=== PATIENT | female | born 1955 | race Caucasian/White ===

== ENCOUNTER 2016-09-13 01:58 | Emergency (ER) | payer BC ==
[2016-09-13 02:04] VITALS: TEMP 97.7
[2016-09-13] MEDS ORDERED: ASPIRIN 81 MG CHEW PO STA (02:19)
[2016-09-13 02:55] LABS: Basophils # (A) 0.1 k/uL (0-0.2); Basophils % (A) 1 %; CH 33.5; CHCM 36.4; Eosinophils # (A) 0.1 k/uL (0-0.7); Eosinophils % (A) 1 %; HCT 36.9 % (34.0-46.0); HDW 2.88; HGB 13.1 gm/dL (11.4-16.0); Luc # (Auto) 0.26; Luc % (Auto) 3; Lymphocytes # (A) 1.9 k/uL (1.0-4.8); Lymphocytes % (A) 18 %; MCH 32.9 pg (25.0-35.0); MCHC 35.5 g/dL (31.0-37.0); MCV 92.5 fL (80.0-100.0); Mean Platelet Volume 7.7; Monocytes # (A) 0.7 k/uL (0-1.0); Monocytes % (A) 6 %; Neutrophils # (A) 7.4 k/uL (1.3-7.7); Neutrophils % (A) 71 %; RBC 3.98 m/uL (3.80-5.40); RDW 12.5 % (11.5-15.5); WBC 10.4 k/uL (3.8-10.6); WBC (Perox) 10.75
[2016-09-13 03:02] LABS: ALT 23 U/L (9-52); AST 19 U/L (14-36); Alkaline Phosphatase 130 U/L (38-126); Amylase 57 U/L (30-110); Anion Gap 11 mmol/L; Blood Urea Nitrogen 21 mg/dL (7-17); Calcium 8.9 mg/dL (8.4-10.2); Carbon Dioxide 24 mmol/L (22-30); Chloride 102 mmol/L (98-107); Glucose 343 mg/dL (74-99); Magnesium 1.5 mg/dL (1.6-2.3); Non-African American GFR(MDRD) >60 (>60 ml/min/1.73 sqM); Sodium 137 mmol/L (137-145); Total Bilirubin 0.6 mg/dL (0.2-1.3); Total Protein 6.7 g/dL (6.3-8.2)
[2016-09-13 03:04] LABS: Creatine Kinase 37 U/L (30-135)
--- NOTE | 2016-09-13 03:15 | XR ---
EXAM: XR Chest, 2 Views. CLINICAL HISTORY: Reason: Chest Pain TECHNIQUE: Frontal and lateral views of the chest. COMPARISON: No relevant prior studies available. FINDINGS: Lungs: Unremarkable. No consolidation. Pleural space: Unremarkable. No pneumothorax. Heart: Mild enlargement of the heart. Mediastinum: Unremarkable. Bones/joints: Unremarkable. IMPRESSION: No acute findings.
[2016-09-13 03:18] LABS: Creatine Kinase MB 0.5 ng/mL (0.0-2.4); Troponin I <0.012 ng/mL (0.000-0.034)
[2016-09-13 03:26] LABS: Partial Thromboplastin Time 23.6 sec (22.0-30.0); Prothrombin Time 10.2 sec (9.0-12.0)
[2016-09-13] MEDS ORDERED: INSULIN REGULAR 100 UNIT/ML VIAL SQ STA (04:24)
[2016-09-13] MEDS ORDERED: MAGNESIUM SULFATE-D5W PMX 1 GM in DEXTROSE/WATER 1 100ML.BAG IVPB ONE (04:24)
--- NOTE | 2016-09-13 04:50 | ED ---
Chest Pain HPI - General Chief Complaint: Chest Pain Stated Complaint: Chest Pain Time Seen by Provider: 09/13/16 02:17 Source: patient, family Mode of arrival: ambulatory Limitations: no limitations - Related Data Home Medications Medication Instructions Recorded Confirmed Atorvastatin [Lipitor] 10 mg PO DAILY 09/13/16 09/13/16 Dulaglutide [Trulicity] 0.75 mg SQ WEEKLY 09/13/16 09/13/16 Ergocalciferol (Vitamin D2) 50,000 unit PO WEEKLY 09/13/16 09/13/16 [Vitamin D2] Insulin Glargine,Hum.rec.anlog 20 unit SQ HS 09/13/16 09/13/16 [Lantus Solostar] Levothyroxine Sodium [Synthroid] 50 mcg PO DAILY 09/13/16 09/13/16 Olmesartan/Hydrochlorothiazide 1 tab PO DAILY 09/13/16 09/13/16 [Benicar Hct 40-25 mg Tablet] Allergies Allergy/AdvReac Type Severity Reaction Status Date / Time No Known Allergies Allergy Verified 09/13/16 02:04 Review of Systems ROS Statement: Those systems with pertinent positive or pertinent negative responses have been documented in the HPI. ROS Other: All systems not noted in ROS Statement are negative. Past Medical History Past Medical History: Diabetes Mellitus, Hypertension, Thyroid Disorder History of Any Multi-Drug Resistant Organisms: None Reported Past Surgical History: Appendectomy, Bariatric Surgery Past Psychological History: No Psychological Hx Reported Smoking Status: Former smoker Past Alcohol Use History: None Reported Past Drug Use History: None Reported General Exam Limitations: no limitations Course Vital Signs 09/13/16 02:00 Temperature 97.7 F Pulse Rate 99 Respiratory 20 Rate Blood Pressure 192/88 O2 Sat by Pulse 98 Oximetry Disposition Clinical Impression: Chest pain, Hypomagnesemia, Hyperglycemia Disposition: HOME SELF-CARE Condition: Fair Instructions: Chest Pain (ED) Referrals: Genaro Montalvo MD [Primary Care Provider] - 1-2 days
[2016-09-13 05:09] VITALS: RESP 16
[2016-09-13 06:16] VITALS: BP 156/70; PULSE 81
== END 2016-09-13 06:15 | disposition home or self-care (01) ==
LOC: EC 01:58
DX: E83.42 Hypomagnesemia (principal); E11.65 Type 2 diabetes mellitus with hyperglycemia; R07.9 Chest pain, unspecified; E07.9 Disorder of thyroid, unspecified; I10 Essential (primary) hypertension; Z87.891 Personal history of nicotine dependence; Z79.4 Long term (current) use of insulin; Z79.899 Other long term (current) drug therapy
CPT/HCPCS: 99285; 96365; 36415; 93005; 85379; 80053; 82150; 82550; 82553; 83690; 83735; 84484; 85025; 85610; 85730; 71020; J3475

== ENCOUNTER → 2016-11-12 | Outpatient (CLI) | payer BC ==
--- NOTE | 2016-11-12 11:41 | ECHOS ---
DATE OF SERVICE: 11/12/2016 AGE: 61Y SEX: F HT: 5'2" WT: 210 lbs. Protocol Lewis: X Others: Stress Echo Stage: 2 Dur. of Exercise: 3:30 *Heart Rate Blood Pressure *Rest: 85 Rest: 155/62 * *Max. Achieved: 151 Maximum BP: 185/83 85% PMHR: 136 100% PMHR: 160 *METS: 4.6 INDICATIONS: Chest pain. MEDICATIONS: Vitamin D, levothyroxine, atorvastatin, Lantus, Trulicity. Exercised for a total period of 3 minutes. A peak heart rate of 151 was achieved. Peak blood pressure over 185/83 mmHg was noted. Patient did not complain of any chest pain during the test but she did complain of shortness of breath. Resting EKG shows normal sinus rhythm with normal CO interval and QRS duration and normal ST-T waves. At the peak exercise about 1.[address] segment depression was noted. The ST segment depression persisted for about 6 minutes in the postexercise period. The resting echocardiographic images reveals a normal left ventricular chamber size with normal left ventricular systolic function. In the immediate postexercise period, there is evidence of hypokinesia involving the distal anterior septum as well as apical septum and anteroapical segment. IMPRESSION: 1. This stress echocardiographic study shows evidence of distal anteroseptal and apical hypokinesia at the peak exercise, suggestive of stress-induced ischemia. 2. EKG portion of the stress test shows a ST-segment depression which persisted for about 6 minutes in the postexercise period. Underlying significant coronary artery disease needs to be ruled out. Exercise tolerance is below average and was limited because symptoms of shortness of breath.
== END | disposition home or self-care (01) ==
LOC: RADNMMAIN 09:59
PROVIDERS: ATTEND Internal Medicine Geriatric Medicine
DX: I51.89 Other ill-defined heart diseases (principal); R94.31 Abnormal electrocardiogram [ECG] [EKG]; R06.02 Shortness of breath
CPT/HCPCS: 93350; 93017; Q9957

== ENCOUNTER → 2016-11-18 | Outpatient (CLI) | payer BC ==
[2016-11-18 13:35] LABS: CH 32.7; CHCM 35.6; HCT 38.5 % (34.0-46.0); HDW 2.79; MCH 33.5 pg (25.0-35.0); MCHC 36.3 g/dL (31.0-37.0); MCV 92.4 fL (80.0-100.0); Mean Platelet Volume 7.3; RBC 4.16 m/uL (3.80-5.40); RDW 12.4 % (11.5-15.5); WBC 8.7 k/uL (3.8-10.6)
[2016-11-18 13:38] LABS: Anion Gap 10 mmol/L; Blood Urea Nitrogen 15 mg/dL (7-17); Carbon Dioxide 30 mmol/L (22-30); Chloride 101 mmol/L (98-107); Non-African American GFR(MDRD) >60 (>60 ml/min/1.73 sqM); Potassium 4.6 mmol/L (3.5-5.1); Sodium 141 mmol/L (137-145)
== END | disposition home or self-care (01) ==
LOC: LABPAT 12:36
PROVIDERS: ATTEND Internal Medicine Cardiovascular Disease
DX: Z01.812 Encounter for preprocedural laboratory examination (principal); I25.10 Atherosclerotic heart disease of native coronary artery without angina pectoris
CPT/HCPCS: 80051; 82565; 84520; 85027

== ENCOUNTER 2016-11-20 06:34 | Day surgery (SDC) | payer BC ==
[~2016-11-20 06:34] MED LIST: ALPRAZolam 0.25 MG TAB PO PRN; ALPRAZolam 0.5 MG TAB PO PRN; ASPIRIN 325 MG TAB PO STA; ATORVASTATIN 80 MG TAB PO STA; NITROGLYCERIN SL TABS 0.4 MG TAB SUBLINGUAL PRN; SODIUM CHLORIDE 0.9% 1,000 ML in EMPTY BAG 1 BAG IV ONE
[2016-11-20 07:06] VITALS: TEMP 97.8
[2016-11-20 07:14] LABS: Glucose,Whole Blood 133 mg/dL (75-99)
[2016-11-20] MEDS ORDERED: LIDOCAINE 2% INJ 20 MG/ML (20 ML MDV) ONE (07:29)
[2016-11-20] MEDS ORDERED: MIDAZOLAM 2 MG/2 ML VIAL ONE (07:29)
[2016-11-20] MEDS ORDERED: fentaNYL (PF) 50 MCG/ML 2 ML AMP ONE (07:29)
[2016-11-20] MEDS ORDERED: fentaNYL (PF) 50 MCG/ML 2 ML AMP IV ONE (07:38)
[2016-11-20] MEDS: MIDAZOLAM 2 MG/2 ML VIAL IV ONE ×2 (07:38→07:41)
[2016-11-20] MEDS ORDERED: LIDOCAINE 2% INJ 20 MG/ML SQ ONE (07:41)
[2016-11-20] MEDS ORDERED: IOHEXOL 350 MG/ML 125ML BOTTLE INJ ONE (08:05)
[2016-11-20] MEDS ORDERED: RX INFO: IV CONTRAST WAS GIVEN 1 EACH MISC MISCELLANE PRN (08:16)
[2016-11-20] MEDS ORDERED: LABETALOL 5 MG/ML VIAL MDV ONE (08:16)
[2016-11-20] MEDS ORDERED: NITROGLYCERIN OINT 1 INCH/GM PACKET TOPICAL ONE (08:18)
[2016-11-20] MEDS ORDERED: LABETALOL 5 MG/ML VIAL MDV IVP STA (08:19)
[2016-11-20] MEDS ORDERED: NITROGLYCERIN OINT 1 INCH/GM PACKET TOPICAL STA (08:19)
[2016-11-20] MEDS ORDERED: SODIUM CHLORIDE 0.9% 1,000 ML IV SCH (08:30)
--- NOTE | 2016-11-20 08:33 | P.PCN ---
Date of Procedure: 11/20/16 Preoperative Diagnosis: Angina and strongly positive stress test Postoperative Diagnosis: Triple-vessel disease Procedure(s) Performed: Left heart catheterization with left ventriculography Implants: Indications for Procedure: Operative Findings: Description of Procedure: HISTORY: This is a 61-year-old female with history of hypertension, hypercholesterolemia, diabetes and strong family history of ischemic heart disease and also history of smoking who has had episode of chest pain in August of this year. She was subsequently evaluated by stress echocardiogram. Patient developed ischemic changes at low workloads with segmental wall motion defects on the stress echo involving the anteroapical segments. Patient is advised to have cardiac catheterization for definitive diagnosis. Patient and family were explained the risks and benefits of the procedure. CONSENT:I have discussed the risks, benefits and alternative therapies for the above-mentioned procedure and for both sedation/analgesia as well as necessary blood product administration, if indicated, as they pertain to this patient. The patient has indicated understanding and acceptance of the risks and procedures discussed. CONSCIOUS SEDATION: Patient was given IV Versed 2 mg and fentanyl 50 mg. The duration of the conscious sedation was about 20-25 minutes PROCEDURE: Patient was brought to the lab in a fasting state. Patient was given some IV sedation. The right groin is infiltrated with lidocaine and right femoral artery was entered using Seldinger technique. A 6-[place] catheter was left in place and selective coronary arteriography and left ventriculography was performed. Patient tolerated the procedure well. Femoral angiogram was performed and manual compression was applied for hemostasis. No immediate complications were noted and patient was transferred to [facility] in a stable condition HEMODYNAMICS: The aortic pressure is about 160/70. Left middle end-diastolic pressure was 15-20. There was no gradient across the aortic valve. SELECTIVE CORONARY ARTERIOGRAPHY: LEFT MAIN: Normal length and patent THE LEFT ANTERIOR DESCENDING CORONARY ARTERY: This is a dominant vessel with a diffuse plaque and there is about 40-50% lesion proximally and about 90% lesion in the midportion. There is also mild disease in the distal portion. It gives rise to small to moderate caliber diagonal branch which also has moderate disease. THE LEFT CIRCUMFLEX AND IS CORONARY ARTERY: This is a nondominant vessel with a critical lesion involving midportion. It gives rise to 2 OM branches which are small in caliber. THE RIGHT CORONARY ARTERY: This is a dominant vessel but small in caliber with a diffuse plaque. There appears to be diffuse disease in the distal portion with areas of 70% stenosis before the bifurcation to PDA and PLV. LEFT VENTRICULOGRAPHY: This revealed normal-sized cardiac silhouette with good systolic function FINAL IMPRESSION: severe triple-vessel disease with preserved LV function PLAN: coronary bypass surgery. Films were reviewed with the Dr. Ang .continue maximal medical therapy PROGNOSIS: guarded
[2016-11-20] MEDS ORDERED: amLODIPine 5 MG TAB ONE (08:45)
[2016-11-20] MEDS ORDERED: amLODIPine 5 MG TAB PO STA (08:46)
[2016-11-20] MEDS ORDERED: METOPROLOL TARTRATE 50 MG TAB ONE (10:25)
[2016-11-20] MEDS ORDERED: METOPROLOL TARTRATE 25 MG TAB PO STA (10:32)
[2016-11-20 11:12] LABS: Basophils % (A) 1 %; CH 32.5; CHCM 35.2; Eosinophils # (A) 0.1 k/uL (0-0.7); Eosinophils % (A) 2 %; HCT 35.1 % (34.0-46.0); HDW 2.83; HGB 12.6 gm/dL (11.4-16.0); Luc # (Auto) 0.22; Luc % (Auto) 3; Lymphocytes # (A) 2.1 k/uL (1.0-4.8); Lymphocytes % (A) 28 %; MCH 33.2 pg (25.0-35.0); MCHC 35.8 g/dL (31.0-37.0); MCV 92.7 fL (80.0-100.0); Mean Platelet Volume 7.2; Monocytes # (A) 0.4 k/uL (0-1.0); Monocytes % (A) 5 %; Neutrophils # (A) 4.7 k/uL (1.3-7.7); Neutrophils % (A) 62 %; RBC 3.78 m/uL (3.80-5.40); RDW 12.4 % (11.5-15.5); WBC 7.7 k/uL (3.8-10.6); WBC (Perox) 8.13
[2016-11-20 11:17] LABS: Prothrombin Time 10.4 sec (9.0-12.0)
[2016-11-20 11:27] LABS: ALT 20 U/L (9-52); AST 15 U/L (14-36); Alkaline Phosphatase 92 U/L (38-126); Anion Gap 10 mmol/L; Blood Urea Nitrogen 21 mg/dL (7-17); Calcium 8.9 mg/dL (8.4-10.2); Carbon Dioxide 26 mmol/L (22-30); Chloride 105 mmol/L (98-107); Cholesterol 140 mg/dL (<200); Glucose 104 mg/dL (74-99); HDL Cholesterol 42 mg/dL (40-60); Magnesium 1.5 mg/dL (1.6-2.3); Non-African American GFR(MDRD) >60 (>60 ml/min/1.73 sqM); Potassium 3.8 mmol/L (3.5-5.1); Sodium 141 mmol/L (137-145); Total Bilirubin 0.6 mg/dL (0.2-1.3); Total Protein 6.5 g/dL (6.3-8.2); Triglycerides 136 mg/dL (<150)
--- NOTE | 2016-11-20 11:55 | ECHOF ---
Referral Reason:preop CABG MEASUREMENTS -------- HEIGHT: 157.5 cm WEIGHT: 94.8 kg BP: 158/76 RVIDd: 2.2 cm (< 3.3) IVSd: 1.4 cm (0.6 - 1.1) LVIDd: 3.6 cm (3.9 - 5.3) LVPWd: 1.4 cm (0.6 - 1.1) IVSs: 1.6 cm LVIDs: 2.8 cm LVPWs: 1.7 cm LA Diam: 3.0 cm (2.7 - 3.8) LAESV Index (A-L): 17.35 ml/m Ao Diam: 3.1 cm (2.0 - 3.7) AV Cusp: 2.2 cm (1.5 - 2.6) MV EXCURSION: 19.848 mm (> 18.000) MV EF SLOPE: 119 mm/s (70 - 150) EPSS: 1.2 cm MV E Rinku: 0.80 m/s MV DecT: 278 ms MV A Rinku: 0.91 m/s MV E/A Ratio: 0.88 FINDINGS -------- Sinus rhythm. This was a technically adequate study. The left ventricular size is normal. There is moderate concentric left ventricular hypertrophy. Overall left ventricular systolic function is normal with, an EF between 60 - 65 %. The right ventricle is normal in size. The global wall thickness of the right ventricle is mildly enlarged. Normal LA size by volume 22+/-6 ml/m2. The right atrium is normal in size. 1.5mg of Definity was utilized for enhancement of images The aortic valve was not well visualized. The mitral valve is normal. The tricuspid valve appears structurally normal. Trace/mild (physiologic) pulmonic regurgitation. The aortic root size is normal. Normal inferior vena cava with normal inspiratory collapse consistent with estimated right atrial pressure of 5 mmHg. Echo free space may represent effusion or a pericardial fat pad. CONCLUSIONS -------- 1. Sinus rhythm. 2. 1.5mg of Definity was utilized for enhancement of images 3. The aortic valve was not well visualized. 4. The mitral valve is normal. 5. The tricuspid valve appears structurally normal. 6. Trace/mild (physiologic) pulmonic regurgitation. 7. The aortic root size is normal. 8. Normal inferior vena cava with normal inspiratory collapse consistent with estimated right atrial pressure of 5 mmHg. 9. Echo free space may represent effusion or a pericardial fat pad. 10. This was a technically adequate study. 11. The left ventricular size is normal. 12. There is moderate concentric left ventricular hypertrophy. 13. Overall left ventricular systolic function is normal with, an EF between 60 - 65 %. 14. The right ventricle is normal in size. 15. The global wall thickness of the right ventricle is mildly enlarged. 16. Normal LA size by volume 22+/-6 ml/m2. 17. The right atrium is normal in size. SALES ASSISTANT DISPLAYS: Rosette Brizuela RDCS
[2016-11-20 11:57] LABS: Hepatitis B Surface Ag Index 0.04
[2016-11-20 12:03] LABS: Hepatitis B Core IgM Index 0.02
[2016-11-20 12:14] LABS: Hepatitis C Virus IgG Ab Negative (Negative); Hepatitis C Virus IgG Index 0.07
[2016-11-20 13:29] VITALS: BP 149/71; PULSE 76; RESP 16
[2016-11-20 13:45] LABS: Appearance,Urine Cloudy (Clear); Bacteria,Urine Rare /hpf; Bilirubin,Urine Negative (Negative); Glucose,Urine (UA) Negative (Negative); Ketones,Urine Negative (Negative); Leukocyte Esterase,Urine Small (Negative); Mucus,Urine Rare /hpf; Nitrite,Urine Negative (Negative); Particle Count 14545; Protein,Urine Trace (Negative); RBC,Urine 1 /hpf (0-5); Specific Gravity,Urine 1.036 (1.001-1.035); Squamous Epithelial Cell,Urine 11 /hpf (0-4); UA Billing (MACRO vs. MICRO) MICRO; Urobilinogen,Urine <2.0 mg/dL (<2.0); WBC,Urine 5 /hpf (0-5)
[2016-11-20 14:03] LABS: Hemoglobin A1C 6.8 % (4.2-6.1)
--- NOTE | 2016-11-20 15:01 | US ---
EXAMINATION TYPE: US carotid duplex BILAT DATE OF EXAM: 11/20/2016 COMPARISON: NONE CLINICAL HISTORY: bilateral carotid bruits . Previous left hand numbness as well as left facial numbn ess. EXAM MEASUREMENTS: RIGHT: Peak Systolic Velocity (PSV) cm/sec ----- Right CCA: 88.5 ----- Right ICA: 112.1 ----- Right ECA: 189.6 ICA/CCA ratio: 1.3 RIGHT: End Diastole cm/sec ----- Right CCA: 9.5 ----- Right ICA: 9.8 ----- Right ECA: 13.0 LEFT: Peak Systolic Velocity (PSV) cm/sec ----- Left CCA: 72.0 ----- Left ICA: 77.1 ----- Left ECA: 241.4 ICA/CCA ratio: 1.1 LEFT: End Diastole cm/sec ----- Left CCA: 17.6 ----- Left ICA: 25.4 ----- Left ECA: 12.5 VERTEBRALS (direction of flow): Right Vertebral: Antegrade Left Vertebral: Antegrade Irregular intimal wall thickening is noted at bilateral carotid bifurcation, especially at bilateral ECA with abnormally elevated PSV in bilateral ECA. IMPRESSION: Less than 50% stenosis of the right internal carotid artery. Velocity of the right development intern al carotid artery has increased since the previous study when it measured 50 cm/s. Left internal sánchez tid artery is unchanged, previously 74 cm/s. Criteria for Assigning % of Stenosis / Diameter reduction (Estimation based on the indirect measurements of the internal carotid artery velocities (ICA PSV). 1. Normal (no stenosis)=ICA PSV < 125 cm/s: ratio < 2.0: ICA EDV<40 cm/s. 2. Less than 50% stenosis=ICA PSV < 125 cm/s: ratio < 2.0: ICA EDV<40 cm/s. 3. 50 to 69% stenosis=ICA PSV of 125 to 230 cm/s: ration 2.0 ? 4.0: ICA EDV 40-100 cm/s. 4. Greater than 70% stenosis to near occlusion= ICA PSV > 230 cm/s: ratio > 4.0: ICA EDV > 100 cm/s. 5. Near occlusion= ICA PSV velocities may be low or undetectable: variable ratio and ICA EDV. 6. Total occlusion=unable to detect flow.
--- NOTE | 2016-11-20 15:05 | P.GSCN ---
History of Present Illness Consult date: 11/20/16 Reason for Consult: multivessel coronary artery disease, need for surgical revascularization. Requesting physician: Naomi Mathis History of present illness: This 61-year-old female with a history of hypertension, hypercholesterolemia, and diabetes and significant family history of early coronary artery disease had presented to the emergency room in August, with complaints of severe chest pain which woke her up at night. She was admitted, a stress echocardiogram was performed which demonstrated evidence of distal anteroseptal and apical hypokinesia suggestive of stress-induced ischemia. Heart catheterization was recommended and was performed this morning with demonstration of diffuse plaquing and 40-50% proximal lesion in the LAD and 90% lesion in the midportion, a critical lesion in the midportion of the left circumflex artery, and diffuse disease in the RCA with a 70% stenosis in the distal portion before the bifurcation to PDA and PLV. Dr. Moreno was consulted for the possibility of surgical revascularization. Review of Systems - Cardiovascular Reports as per HPI Past Medical History Past Medical History: Diabetes Mellitus, Hypertension, Thyroid Disorder Additional Past Medical History / Comment(s): August ADMIT: CHEST TIGHTNESS. 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 History of Any Multi-Drug Resistant Organisms: None Reported Past Surgical History: Appendectomy, Bariatric Surgery Additional Past Surgical History / Comment(s): LAP BAND. D & C. LASER AND CATARACT SURGERY (GLAUCOMA & BLEEDING IN LEFT EYE). Past Anesthesia/Blood Transfusion Reactions: No Reported Reaction Past Psychological History: No Psychological Hx Reported Smoking Status: Never smoker Past Alcohol Use History: None Reported Additional Past Alcohol Use History / Comment(s): QUIT 36 YRS AGO. FOR 4 YRS, 1 PPD. Past Drug Use History: None Reported - Past Family History Mother Family Medical History: Coronary Artery Disease (CAD) Father Family Medical History: Coronary Artery Disease (CAD) Brother(s) Additional Family Medical History / Comment(s): brother of heart problem Medications and Allergies Home Medications Medication Instructions Recorded Confirmed Type Atorvastatin [Lipitor] 10 mg PO 09/13/16 11/20/16 History Dulaglutide [Trulicity] 0.5 mg SQ TH 09/13/16 11/20/16 History Ergocalciferol (Vitamin D2) 50,000 unit PO 09/13/16 11/20/16 History [Vitamin D2] Insulin Glargine,Hum.rec.anlog 30 unit SQ HS 09/13/16 11/20/16 History [Lantus Solostar] Levothyroxine Sodium [Synthroid] 50 mcg PO QAM 09/13/16 11/20/16 History Lisinopril-Hctz 20-25 mg 1 tab PO QAM 11/19/16 11/20/16 History [Zestoretic 20-25] Metoprolol Tartrate [Lopressor] 25 mg PO BID 11/19/16 11/20/16 History Nitroglycerin Sl Tabs [Nitrostat] 1 tab PO DIRECTED 11/19/16 11/19/16 History Allergies Allergy/AdvReac Type Severity Reaction Status Date / Time No Known Allergies Allergy Verified 11/19/16 09:10 Surgical - Exam Vital Signs Temp Pulse Resp BP Pulse Ox 97.8 F 86 18 172/77 96 11/20/16 06:50 11/20/16 06:50 11/20/16 06:50 11/20/16 06:50 11/20/16 06:50 - General well developed, well nourished, no distress, no pain - Eyes PERRL, normal ocular movement (Okay so) - ENT no hearing loss - Neck trachea midline carotid bruit: bilateral - Respiratory normal expansion, normal respiratory effort (lungs sounds are okay), clear to auscultation - Cardiovascular Rhythm: regular (her lungs sounded okay) Heart Sounds: normal: S1, S2 - Abdomen Abdomen: soft, non tender, bowel sounds - Genitourinary Deferred - Rectum Deferred - Neurologic normal coordination, normal sensation - Musculoskeletal normal gait - Psychiatric oriented to time, oriented to person, oriented to place, speech is normal (He is making pounds), memory intact Results - Labs 11/20/16 10:30 11/20/16 10:30 Abnormal Lab Results - Last 24 Hours (Table) 11/20/16 11/20/16 11/20/16 Range/Units 06:54 10:05 10:30 RBC 3.78 L (3.80-5.40) m/uL BUN (7-17) mg/dL Glucose (74-99) mg/dL POC Glucose (mg/dL) 133 H (75-99) mg/dL Hemoglobin A1c (4.2-6.1) % Magnesium (1.6-2.3) mg/dL Albumin (3.5-5.0) g/dL TSH (0.465-4.680) mIU/L Urine Appearance (Clear) Ur Specific [place] (1.001-1.035) Urine Protein (Negative) Urine Blood (Negative) Ur Leukocyte Esterase (Negative) Ur Squamous Epith Cells (0-4) /hpf Urine Bacteria (None) /hpf Urine Mucus (None) /hpf Crossmatch See Detail 11/20/16 11/20/16 11/20/16 Range/Units 10:30 10:30 13:20 RBC (3.80-5.40) m/uL BUN 21 H (7-17) mg/dL Glucose 104 H (74-99) mg/dL POC Glucose (mg/dL) (75-99) mg/dL Hemoglobin A1c 6.8 H (4.2-6.1) % Magnesium 1.5 L (1.6-2.3) mg/dL Albumin 3.4 L (3.5-5.0) g/dL TSH 4.750 H (0.465-4.680) mIU/L Urine Appearance Cloudy H (Clear) Ur Specific [place] 1.036 H (1.001-1.035) Urine Protein Trace H (Negative) Urine Blood Small H (Negative) Ur Leukocyte Esterase Small H (Negative) Ur Squamous Epith Cells 11 H (0-4) /hpf Urine Bacteria Rare H (None) /hpf Urine Mucus Rare H (None) /hpf Crossmatch Microbiology - Last 24 Hours (Table) 11/20/16 10:12 Nasal Screen MRSA/MSSA ([facility]) - Preliminary Nasal Swab Diabetes panel 11/20/16 11/20/16 Range/Units 10:30 10:30 Sodium 141 (137-145) mmol/L Potassium 3.8 (3.5-5.1) mmol/L Chloride 105 (98-107) mmol/L Carbon Dioxide 26 (22-30) mmol/L BUN 21 H (7-17) mg/dL Creatinine 0.77 (0.52-1.04) mg/dL Glucose 104 H (74-99) mg/dL Hemoglobin A1c 6.8 H (4.2-6.1) % Calcium 8.9 (8.4-10.2) mg/dL AST 15 (14-36) U/L ALT 20 (9-52) U/L Alkaline Phosphatase 92 (38-126) U/L Total Protein 6.5 (6.3-8.2) g/dL Albumin 3.4 L (3.5-5.0) g/dL Triglycerides 136 (<150) mg/dL HDL Cholesterol 42 (40-60) mg/dL Thyroid panel 11/20/16 Range/Units 10:30 TSH 4.750 H (0.465-4.680) mIU/L Calcium panel 11/20/16 Range/Units 10:30 Calcium 8.9 (8.4-10.2) mg/dL Albumin 3.4 L (3.5-5.0) g/dL Pituitary panel 11/20/16 Range/Units 10:30 Sodium 141 (137-145) mmol/L Potassium 3.8 (3.5-5.1) mmol/L Chloride 105 (98-107) mmol/L Carbon Dioxide 26 (22-30) mmol/L BUN 21 H (7-17) mg/dL Creatinine 0.77 (0.52-1.04) mg/dL Glucose 104 H (74-99) mg/dL Calcium 8.9 (8.4-10.2) mg/dL TSH 4.750 H (0.465-4.680) mIU/L Adrenal panel 11/20/16 Range/Units 10:30 Sodium 141 (137-145) mmol/L Potassium 3.8 (3.5-5.1) mmol/L Chloride 105 (98-107) mmol/L Carbon Dioxide 26 (22-30) mmol/L BUN 21 H (7-17) mg/dL Creatinine 0.77 (0.52-1.04) mg/dL Glucose 104 H (74-99) mg/dL Calcium 8.9 (8.4-10.2) mg/dL Total Bilirubin 0.6 (0.2-1.3) mg/dL AST 15 (14-36) U/L ALT 20 (9-52) U/L Alkaline Phosphatase 92 (38-126) U/L Total Protein 6.5 (6.3-8.2) g/dL Albumin 3.4 L (3.5-5.0) g/dL - Imaging Additional studies: Carotid Dopplers, cardiac catheterization reviewed. Assessment and Plan (1) Hypertension Status: Acute (2) Hyperlipidemia Status: Acute (3) Diabetes mellitus type 2 in obese Status: Acute (4) Family history of coronary artery disease Status: Acute (5) Triple vessel coronary artery disease Status: Acute (6) Tobacco dependence in remission Status: Acute (7) Obesity (BMI 30-39.9) Status: Acute Plan: The patient was seen and examined in the extended stay unit. Chart reports/ diagnostics were reviewed. Preoperative testing was ordered. Preoperative teaching was initiated and reinforced. Dr. Moreno had extensive discussion with the patient and family, all risks and benefits were explained, and the patient was agreeable to proceed with surgery. At this point we will plan for elective coronary artery bypass graft surgery on 12/07/2016 pending results of testing. Thank you Dr. Mathis for the consult. We look forward to working with you in the care of your patient. Time with Patient: Greater than 30
== END 2016-11-20 15:30 | disposition home or self-care (01) ==
LOC: CATHCVL 06:34
PROVIDERS: ATTEND Internal Medicine Cardiovascular Disease
DX: I25.10 Atherosclerotic heart disease of native coronary artery without angina pectoris (principal); I37.1 Nonrheumatic pulmonary valve insufficiency; I51.7 Cardiomegaly; I65.21 Occlusion and stenosis of right carotid artery; R94.39 Abnormal result of other cardiovascular function study; R07.9 Chest pain, unspecified; I10 Essential (primary) hypertension; E78.00 Pure hypercholesterolemia, unspecified; E78.5 Hyperlipidemia, unspecified; Z82.49 Family history of ischemic heart disease and other diseases of the circulatory system; E07.9 Disorder of thyroid, unspecified; E11.319 Type 2 diabetes mellitus with unspecified diabetic retinopathy without macular edema; E66.9 Obesity, unspecified; Z68.38 Body mass index [BMI] 38.0-38.9, adult; Z79.4 Long term (current) use of insulin; Z79.899 Other long term (current) drug therapy; Z87.891 Personal history of nicotine dependence
CPT/HCPCS: 94150; 93306; 93458; 86900; 86901; 84439; 83880; 80061; 80053; 80074; 84443; 83036; 83735; 85025; 85610; 85730; 86850; 81001; 87070; 87086; 93970; 93880; 99152; C1894; C1769; J2001; J2250; J3010; Q9957; Q9967; 86920

== ENCOUNTER → 2016-12-03 | Outpatient (CLI) | payer BC ==
[2016-12-03 09:33] LABS: CH 32.1; CHCM 35.5; HCT 35.3 % (34.0-46.0); HDW 2.87; HGB 12.7 gm/dL (11.4-16.0); MCH 32.8 pg (25.0-35.0); MCHC 36.1 g/dL (31.0-37.0); MCV 90.8 fL (80.0-100.0); Mean Platelet Volume 7.4; RBC 3.89 m/uL (3.80-5.40); RDW 12.4 % (11.5-15.5); WBC 9.3 k/uL (3.8-10.6)
[2016-12-03 09:56] LABS: ALT 19 U/L (9-52); AST 18 U/L (14-36); Alkaline Phosphatase 99 U/L (38-126); Anion Gap 10 mmol/L; Blood Urea Nitrogen 24 mg/dL (7-17); Calcium 9.2 mg/dL (8.4-10.2); Carbon Dioxide 27 mmol/L (22-30); Chloride 104 mmol/L (98-107); Glucose 109 mg/dL (74-99); Magnesium 1.7 mg/dL (1.6-2.3); Non-African American GFR(MDRD) >60 (>60 ml/min/1.73 sqM); Potassium 4.7 mmol/L (3.5-5.1); Sodium 141 mmol/L (137-145); Total Bilirubin 0.5 mg/dL (0.2-1.3); Total Protein 7.1 g/dL (6.3-8.2)
--- NOTE | 2016-12-03 11:02 | XR ---
EXAMINATION TYPE: XR chest 2V DATE OF EXAM: 12/03/2016 HISTORY: Z01.818 pre surgical. REFERENCE: Previous study dated 09/13/2016. FINDINGS: Heart is mildly enlarged. The lungs are clear. Pleural spaces are clear. There is hypertrophic spondylosis within the dorsal spine.. IMPRESSION: CARDIOMEGALY.
--- NOTE | 2016-12-09 14:38 | P.ARTDOP ---
Arterial Doppler LOWER EXTREMITY ARTERIAL DOPPLER: DATE OF SERVICE:12/03/2016 Reason for study: pre-CABG Doppler waveforms:multiphasic bilaterally throughout Pulse volume recording: []. Pressure gradients: none Ankle-brachial indices: 0.92 on the right and greater than1 on the left]. Toe pressures: [] on the right, [] on the left Impression: normal study
== END | disposition home or self-care (01) ==
LOC: LABPAT 07:43
PROVIDERS: ATTEND Surgery
DX: Z01.810 Encounter for preprocedural cardiovascular examination (principal); Z01.812 Encounter for preprocedural laboratory examination
CPT/HCPCS: 71020; 80053; 83735; 85027; 93922

== ENCOUNTER 2016-12-07 08:00 | Inpatient (IN) | payer BC ==
[2016-12-04 14:22] VITALS: BMI 38.2
[2016-12-08] MEDS ORDERED: PAPAVERINE 360 MG in SODIUM CHLORIDE 0.9% 90 ML IV ONE (05:00)
[2016-12-08] MEDS ORDERED: INSULIN REGULAR 100 UNIT in SODIUM CHLORIDE 0.9% 100 ML IV ONE (05:00)
[2016-12-08] MEDS ORDERED: ASPIRIN 325 MG TAB PO ONE (05:00)
[2016-12-08] MEDS ORDERED: PROPOFOL 50 ML IV ONE (05:00)
[2016-12-08] MEDS ORDERED: CLEVIDIPINE BUTYRATE 25 MG in EMPTY BAG 1 BAG IV ONE (05:00)
[2016-12-08] MEDS ORDERED: AMINOCAPROIC ACID 5,000 MG in DEXTROSE 5% IN WATER 50 ML IV ONE ×2 (05:00)
[2016-12-08] MEDS ORDERED: ALBUMIN HUMAN 5% 500 ML IVPB ONE (05:00)
[2016-12-08] MEDS ORDERED: CALCIUM CHLORIDE 100 MG/ML 10 ML SYRINGE IV ONE (05:00)
[2016-12-08] MEDS ORDERED: NITROGLYCERIN SL TABS 0.4 MG TAB SUBLINGUAL PRN (05:00)
[2016-12-08] MEDS ORDERED: ceFAZolin 2,000 MG in SODIUM CHLORIDE 0.9% 30 ML IVPB ONE ×4 (05:00)
[2016-12-08] MEDS ORDERED: ALBUMIN HUMAN 25% 50 ML IV ONE (05:00)
[2016-12-08] MEDS ORDERED: ceFAZolin 1,000 MG in SODIUM CHLORIDE 0.9% IRRIGATIO 1,000 ML IRRIGATION ONE (05:00)
[2016-12-08] MEDS ORDERED: SODIUM BICARB 8.4% 50 ML SYR (1 MEQ/ML) IV ONE (05:00)
[2016-12-08] MEDS ORDERED: ATORVASTATIN 10 MG TAB PO ONE (05:00)
[2016-12-08] MEDS ORDERED: DEXTROSE 5% IN WATER 1,000 ML with POTASSIUM CHLORIDE 25 MEQ, SODIUM CHLORIDE 4MEQ/ML V... IV ONE ×6 (05:00)
[2016-12-08] MEDS ORDERED: SODIUM CHLORIDE 0.9% 1,000 ML IV ONE (05:00)
[2016-12-08] MEDS ORDERED: CHLORHEXIDINE GLUCONATE 15 ML CUP MUCOUS MEM ONE (05:00)
[2016-12-08] MEDS ORDERED: METOPROLOL TARTRATE 12.5 MG TAB PO ONE (05:00)
[2016-12-08] MEDS ORDERED: MAGNESIUM SULFATE MG 500 MG/ML VIAL IV ONE (05:00)
[2016-12-08] MEDS ORDERED: DEXTROSE 5% IN WATER 1,000 ML with POTASSIUM CHLORIDE 110 MEQ, MAGNESIUM SULFATE 16 MEQ... IV ONE ×5 (05:00)
[2016-12-08] MEDS ORDERED: NOREPINEPHRIN 4 MG-0.9% NS PMX 4 MG/250 ML ML IV ONE (05:00)
[2016-12-08] MEDS ORDERED: PHENYLEPHRINE 40 MG in SODIUM CHLORIDE 0.9% 250 ML IV ONE (05:00)
[2016-12-08] MEDS ORDERED: MUPIROCIN 2% OINT 22 GM TUBE NASAL ONE (05:00)
[2016-12-08] MEDS ORDERED: HEPARIN SODIUM,PORCINE 5,000 UNIT in SODIUM CHLORIDE 0.9% 500 ML IV ONE (05:00)
[2016-12-08] MEDS ORDERED: MANNITOL 25% 12.5 GM/50 ML VIAL IV ONE (05:00)
[2016-12-08] MEDS ORDERED: PHENYLEPHRINE-0.9% NACL SYG 1 MG/10 ML SYRINGE IV ONE (05:00)
[2016-12-08] MEDS ORDERED: AMINOCAPROIC ACID 250 MG/ML 20 ML VIAL IV ONE (05:00)
[2016-12-08] MEDS ORDERED: NITROGLYCERIN-D5W PMX 50 MG in DEXTROSE/WATER 1 250ML.BAG IV ONE (05:00)
[2016-12-08] MEDS ORDERED: LACTATED RINGERS 1,000 ML IV ONE (05:00)
[2016-12-08] MEDS ORDERED: PROTAMINE SULFATE 10 MG/ML 25 ML VIAL IV ONE ×2 (05:00→08:03)
[2016-12-08] MEDS ORDERED: PROTAMINE SULFATE 250 MG in EMPTY BAG 1 BAG IV ONE (05:00)
[2016-12-08] MEDS ORDERED: NITROGLYCERIN-D5W PMX 25 MG/250 ML BTL IV ONE (05:00)
[2016-12-08] MEDS ORDERED: HEPARIN SODIUM 1,000 UN/ML (10ML VL) IV ONE (05:00)
[2016-12-08 06:15] LABS: Glucose,Whole Blood 142 mg/dL (75-99)
[2016-12-08] MEDS ORDERED: LIDOCAINE 2% SYG (PF) 100 MG/5 ML ONE (08:03)
[2016-12-08] MEDS ORDERED: SUCCINYLCHOLINE CHLORIDE 100 MG/5 ML SYR IV ONE (08:03)
[2016-12-08] MEDS ORDERED: PHENYLEPHRINE-0.9% NACL SYG 1 MG/10 ML SYRINGE ONE (08:03)
[2016-12-08] MEDS ORDERED: ALBUMIN HUMAN 5% 500 ML VIAL IVPB ONE (08:03)
[2016-12-08] MEDS ORDERED: fentaNYL (PF) 50 MCG/ML 2 ML AMP ONE (08:03)
[2016-12-08] MEDS ORDERED: MIDAZOLAM 2 MG/2 ML VIAL ONE (08:03)
[2016-12-08] MEDS ORDERED: PROPOFOL 10 MG/ML 20 ML VIAL IV ONE (08:03)
[2016-12-08] MEDS ORDERED: HEPARIN SODIUM,PORCINE 5,000 UNIT/ML 1 ML VIAL ONE (08:03)
[2016-12-08] MEDS ORDERED: ROCURONIUM BROMIDE 10 MG/ML 10 ML VIAL IV ONE (08:03)
[2016-12-08] MEDS ORDERED: HEPARIN SODIUM,PORCINE 10,000 UNIT/ML 1 ML VIAL ONE (08:03)
[2016-12-08] MEDS ORDERED: MAGNESIUM SULFATE 4 MEQ/ML 2 ML VIAL ONE (08:03)
[2016-12-08] MEDS ORDERED: fentaNYL (PF) 50 MCG/ML 50 ML VIAL ONE (08:03)
[2016-12-08 08:46] LABS: Glucose,Whole Blood 114 mg/dL (75-99)
[2016-12-08 11:04] LABS: Glucose,Whole Blood 136 mg/dL (75-99)
[2016-12-08 11:51] LABS: Glucose,Whole Blood 144 mg/dL (75-99)
[2016-12-08 12:22] LABS: Glucose,Whole Blood 149 mg/dL (75-99)
[2016-12-08 13:23] LABS: Glucose,Whole Blood 300 mg/dL (75-99)
[2016-12-08 14:10] LABS: Glucose,Whole Blood 281 mg/dL (75-99)
[2016-12-08 14:56] LABS: Glucose,Whole Blood 235 mg/dL (75-99)
[2016-12-08] MEDS ORDERED: METOCLOPRAMIDE 5 MG/ML 2 ML VIAL IVP PRN (16:02)
[2016-12-08] MEDS ORDERED: BENZOCAINE/MENTHOL LOZENG 1 EACH LOZENGE MUCOUS MEM PRN (16:02)
[2016-12-08] MEDS ORDERED: Phosphorus Replacement Protoco 1 EACH MISC MISCELLANE PRN (16:02)
[2016-12-08] MEDS ORDERED: NITROGLYCERIN-D5W PMX 50 MG in DEXTROSE/WATER 1 250ML.BAG IV SCH (16:02)
[2016-12-08] MEDS ORDERED: Magnesium Replacement Protocol 1 EACH MISC MISCELLANE PRN (16:02)
[2016-12-08] MEDS ORDERED: Potassium Replacement Protocol 1 EACH MISC MISCELLANE PRN (16:02)
[2016-12-08] MEDS ORDERED: CALCIUM GLUCONATE 2,000 MG in SODIUM CHLORIDE 0.9% 100 ML IVPB PRN (16:02)
[2016-12-08] MEDS ORDERED: LACTATED RINGERS 250 ML IV PRN (16:02)
[2016-12-08 16:03] LABS: Glucose,Whole Blood 170 mg/dL (75-99)
[2016-12-08 16:17] LABS: INR 1.3 (<1.1); Partial Thromboplastin Time 29.1 sec (22.0-30.0); Prothrombin Time 12.4 sec (9.0-12.0)
[2016-12-08 16:19] LABS: Basophils % (A) 0 %; CH 32.3; CHCM 35.3; Eosinophils % (A) 0 %; HDW 2.78; Luc # (Auto) 0.04; Luc % (Auto) 1; Lymphocytes # (A) 0.9 k/uL (1.0-4.8); Lymphocytes % (A) 10 %; MCH 32.7 pg (25.0-35.0); MCHC 35.6 g/dL (31.0-37.0); MCV 91.8 fL (80.0-100.0); Monocytes # (A) 0.4 k/uL (0-1.0); Monocytes % (A) 5 %; Neutrophils # (A) 7.3 k/uL (1.3-7.7); Neutrophils % (A) 84 %; RDW 12.4 % (11.5-15.5); WBC 8.8 k/uL (3.8-10.6)
[2016-12-08] MEDS: LACTATED RINGERS 1,000 ML IV SCH (16:19)
[2016-12-08 16:22] LABS: Ionized Calcium 4.5 mg/dL (4.5-5.3)
[2016-12-08 16:26] LABS: HGB 6.2 gm/dL (11.4-16.0)
--- NOTE | 2016-12-08 16:26 | XR ---
EXAMINATION TYPE: XR chest 1V portable DATE OF EXAM: 12/08/2016 Comparison: 12/03/2016 Clinical History: 61-year-old female Post Operative Cardiac Surgery Findings: ET tube is satisfactory. Mediastinal drains are present as well as a left-sided chest tube. No apprec iable pneumothorax. Right IJ [place] catheter tip is in the right main pulmonary artery. Median sergey rnotomy wires and post-CABG clips are noted. There is some patchy retrocardiac opacity noted. Impression: Some patchy postoperative retrocardiac atelectasis.
[2016-12-08 16:27] LABS: HCT 17.4 % (34.0-46.0); Mean Platelet Volume 0
[2016-12-08 16:30] LABS: ALT 15 U/L (9-52); AST 33 U/L (14-36); Alkaline Phosphatase 35 U/L (38-126); Anion Gap 11 mmol/L; Blood Urea Nitrogen 19 mg/dL (7-17); Calcium 7.4 mg/dL (8.4-10.2); Carbon Dioxide 24 mmol/L (22-30); Chloride 105 mmol/L (98-107); Glucose 165 mg/dL (74-99); Magnesium 2.2 mg/dL (1.6-2.3); Non-African American GFR(MDRD) >60 (>60 ml/min/1.73 sqM); Potassium 3.9 mmol/L (3.5-5.1); Sodium 140 mmol/L (137-145); Total Bilirubin 0.7 mg/dL (0.2-1.3)
[2016-12-08] MEDS: IPRATROPIUM-ALBUTEROL 3 ML NEB INHALATION SCH ×3 (16:35→23:08)
[2016-12-08] MEDS: ceFAZolin 2 GM in SODIUM CHLORIDE 0.9% 100 ML IVPB SCH (16:37)
[2016-12-08] MEDS: INSULIN REGULAR 100 UNIT in SODIUM CHLORIDE 0.9% 100 ML IV SCH (16:38)
[2016-12-08 16:51] LABS: ABG HCO3 25 mmol/L (21-25); ABG Oxygen Saturation 99.9 % (94-97); ABG PCO2 55 mmHg (35-45); ABG PH 7.28 (7.35-7.45); ABG PO2 344 mmHg (83-108); ABG TCO2 27 mmol/L (19-24)
[2016-12-08] MEDS: CLEVIDIPINE BUTYRATE 25 MG in EMPTY BAG 1 BAG IV SCH ×3 (17:00→23:32)
[2016-12-08 17:02] LABS: Glucose,Whole Blood 156 mg/dL (75-99)
[2016-12-08 17:42] LABS: ABG Base Excess -0.6 mmol/L; ABG HCO3 23 mmol/L (21-25); ABG Oxygen Saturation 96.3 % (94-97); ABG PCO2 33 mmHg (35-45); ABG PH 7.45 (7.35-7.45); ABG PO2 79 mmHg (83-108); ABG TCO2 24 mmol/L (19-24)
--- NOTE | 2016-12-08 17:53 | P.CONS ---
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 Patient ended up having heart catheter [address] Mathis result were positive with multiple vessel disease. Patient was seen in cardiothoracic surgeon and scheduled for elective [place] vessel bypass surgery in today 12/08/2016. Surgery went successfully patient is on mechanical ventilation had the 3 chest tube sedated currently require minimum vasopressor on insulin drip she is admitted to the ICU. She has slight the drop in hemoglobin post surgery with hemoglobin down 6.2 and low platelet count of 80,000. Review of Systems ROS unobtainable: due to endotracheal tube Past Medical History Past Medical History: Diabetes Mellitus, Hypertension, Thyroid Disorder Additional Past Medical History / Comment(s): chest tightness w/ SOB,diabetic retinopathy-blind rt eye,glaucoma lt eye History of Any Multi-Drug Resistant Organisms: None Reported Past Surgical History: Appendectomy, Bariatric Surgery Additional Past Surgical History / Comment(s): Lapband,D&C, cataract surgery lt eye,laser surgery lt eye for bleeding and glaucoma Past Anesthesia/Blood Transfusion Reactions: No Reported Reaction Additional Past Anesthesia/Blood Transfusion Reaction / Comm: no problems with prior blood transfusions. Past Psychological History: No Psychological Hx Reported Smoking Status: Former smoker - Past Family History Mother Family Medical History: Coronary Artery Disease (CAD) Father Family Medical History: Coronary Artery Disease (CAD) Additional Family Medical History / Comment(s): skin CA Brother(s) Family Medical History: Myocardial Infarction (MT) Additional Family Medical History / Comment(s): brother of heart problem Medications and Allergies Home Medications Medication Instructions Recorded Confirmed Type Atorvastatin [Lipitor] 10 mg PO HS 09/13/16 12/08/16 History Dulaglutide [Trulicity] 0.5 mg SQ TH 09/13/16 12/08/16 History Ergocalciferol (Vitamin D2) 50,000 unit PO TH 09/13/16 12/08/16 History [Vitamin D2] Insulin Glargine,Hum.rec.anlog 30 unit SQ HS 09/13/16 12/08/16 History [Lantus Solostar] Levothyroxine Sodium [Synthroid] 50 mcg PO QAM 09/13/16 12/08/16 History Lisinopril-Hctz 20-25 mg 1 tab PO QAM 11/19/16 12/08/16 History [Zestoretic 20-25] Metoprolol Tartrate [Lopressor] 25 mg PO BID 11/19/16 12/08/16 History Aspirin 325 mg PO DAILY 12/04/16 12/08/16 History Nitroglycerin Sl Tabs [Nitrostat] 0.4 mg SUBLINGUAL Q5M PRN 12/04/16 12/08/16 History Allergies Allergy/AdvReac Type Severity Reaction Status Date / Time No Known Allergies Allergy Verified 12/08/16 06:06 Physical Exam Vitals: Vital Signs Temp Pulse Resp BP BP Pulse Ox 12/08/16 06:20 98.3 F 83 16 174/76 165/75 96 Intake and Output 12/08/16 12/08/16 12/08/16 06:59 14:59 22:59 Intake Total 0 1.008 Output Total 2600 Balance 0 -2598.992 Intake: IV 0 Intake, IV Titration 1.008 Amount Insulin Regular 100 unit 1.008 In Sodium Chloride 0.9% 100 ml @ Per Protocol IV .Q0M [facility] Rx#:[id number] Output: Urine 800 Estimated Blood Loss 1800 Other: Weight 97.1 kg - Constitutional Intubated on mechanical ventilation and sedated currently. General appearance: no average body habitus, no cooperative, disheveled, no mild distress, morbidly obese, no no acute distress, no obese, no severe distress, no thin - EENT Eyes: no abnormal pupil, no anicteric sclerae, no disc margins sharp, no edentulous, no EOMI, no PERRLA, no fundus normal, no photophobia, no dentition normal, no poor dentition, no ptosis, no scleral icterus, normal appearance ENT: no hard of hearing, no hearing grossly normal, no NA/AT, no normal oropharynx, no other, no pharyngeal erythema, no thrush, no tonsillar exudates, no tonsillar swelling - Neck Central line in the right side of the neck ET tube is in place currently. Neck: no lymphadenopathy, normal ROM, no other, no rigidity, no stridor, no thyromegaly Carotids: bilateral: upstroke normal Thyroid: bilateral: normal size - Respiratory Respiratory: left: diminished, dullness, rhonchi - Cardiovascular Rhythm: regular Heart sounds: normal: S1, S2 Abnormal Heart Sounds: S3 Gallop - Gastrointestinal General gastrointestinal: no absent bowel sounds, no decreased bowel sounds, distended, no hepatomegaly, no hyperactive bowel sounds, normal bowel sounds, no organomegaly, no rigid, no scaphoid, soft, no splenomegaly, no tenderness, no umbilical hernia, no ventral hernia - Integumentary Integumentary: no calor, no cellulitis, no cyanotic, no decreased turgor, no flushed, no jaundiced, normal, no normal turgor, pale, no rash, no ulcer - Neurologic Sedated on mechanical ventilation Results CBC & Chem 7: 12/08/16 16:04 12/08/16 16:04 Labs: Abnormal Lab Results - Last 24 Hours (Table) 12/03/16 12/08/16 12/08/16 Range/Units 09:01 06:14 08:42 RBC (3.80-5.40) m/uL Hgb (11.4-16.0) gm/dL Hct (34.0-46.0) % Plt Count (150-450) k/uL Lymphocytes # (1.0-4.8) k/uL PT (9.0-12.0) sec ABG pH (7.35-7.45) ABG pCO2 (35-45) mmHg ABG pO2 (83-108) mmHg ABG Total CO2 (19-24) mmol/L ABG O2 Saturation (94-97) % BUN (7-17) mg/dL Glucose (74-99) mg/dL POC Glucose (mg/dL) 142 H 114 H (75-99) mg/dL Calcium (8.4-10.2) mg/dL Alkaline Phosphatase (38-126) U/L Total Protein (6.3-8.2) g/dL Albumin (3.5-5.0) g/dL Crossmatch See Detail 12/08/16 12/08/16 12/08/16 Range/Units 11:01 11:38 12:21 RBC (3.80-5.40) m/uL Hgb (11.4-16.0) gm/dL Hct (34.0-46.0) % Plt Count (150-450) k/uL Lymphocytes # (1.0-4.8) k/uL PT (9.0-12.0) sec ABG pH (7.35-7.45) ABG pCO2 (35-45) mmHg ABG pO2 (83-108) mmHg ABG Total CO2 (19-24) mmol/L ABG O2 Saturation (94-97) % BUN (7-17) mg/dL Glucose (74-99) mg/dL POC Glucose (mg/dL) 136 H 144 H 149 H (75-99) mg/dL Calcium (8.4-10.2) mg/dL Alkaline Phosphatase (38-126) U/L Total Protein (6.3-8.2) g/dL Albumin (3.5-5.0) g/dL Crossmatch 12/08/16 12/08/16 12/08/16 Range/Units 13:19 13:56 14:54 RBC (3.80-5.40) m/uL Hgb (11.4-16.0) gm/dL Hct (34.0-46.0) % Plt Count (150-450) k/uL Lymphocytes # (1.0-4.8) k/uL PT (9.0-12.0) sec ABG pH (7.35-7.45) ABG pCO2 (35-45) mmHg ABG pO2 (83-108) mmHg ABG Total CO2 (19-24) mmol/L ABG O2 Saturation (94-97) % BUN (7-17) mg/dL Glucose (74-99) mg/dL POC Glucose (mg/dL) 300 H 281 H 235 H (75-99) mg/dL Calcium (8.4-10.2) mg/dL Alkaline Phosphatase (38-126) U/L Total Protein (6.3-8.2) g/dL Albumin (3.5-5.0) g/dL Crossmatch 12/08/16 12/08/16 12/08/16 Range/Units 16:00 16:04 16:04 RBC 1.90 L (3.80-5.40) m/uL Hgb 6.2 L* D (11.4-16.0) gm/dL Hct 17.4 L* (34.0-46.0) % Plt Count 88 L D (150-450) k/uL Lymphocytes # 0.9 L (1.0-4.8) k/uL PT (9.0-12.0) sec ABG pH (7.35-7.45) ABG pCO2 (35-45) mmHg ABG pO2 (83-108) mmHg ABG Total CO2 (19-24) mmol/L ABG O2 Saturation (94-97) % BUN 19 H (7-17) mg/dL Glucose 165 H (74-99) mg/dL POC Glucose (mg/dL) 170 H (75-99) mg/dL Calcium 7.4 L (8.4-10.2) mg/dL Alkaline Phosphatase 35 L (38-126) U/L Total Protein 5.0 L (6.3-8.2) g/dL Albumin 3.2 L (3.5-5.0) g/dL Crossmatch 12/08/16 12/08/16 12/08/16 Range/Units 16:04 16:25 17:01 RBC (3.80-5.40) m/uL Hgb (11.4-16.0) gm/dL Hct (34.0-46.0) % Plt Count (150-450) k/uL Lymphocytes # (1.0-4.8) k/uL PT 12.4 H (9.0-12.0) sec ABG pH 7.28 L (7.35-7.45) ABG pCO2 55 H (35-45) mmHg ABG pO2 344 H (83-108) mmHg ABG Total CO2 27 H (19-24) mmol/L ABG O2 Saturation 99.9 H (94-97) % BUN (7-17) mg/dL Glucose (74-99) mg/dL POC Glucose (mg/dL) 156 H (75-99) mg/dL Calcium (8.4-10.2) mg/dL Alkaline Phosphatase (38-126) U/L Total Protein (6.3-8.2) g/dL Albumin (3.5-5.0) g/dL Crossmatch 12/08/16 Range/Units 17:25 RBC (3.80-5.40) m/uL Hgb (11.4-16.0) gm/dL Hct (34.0-46.0) % Plt Count (150-450) k/uL Lymphocytes # (1.0-4.8) k/uL PT (9.0-12.0) sec ABG pH (7.35-7.45) ABG pCO2 33 L (35-45) mmHg ABG pO2 79 L (83-108) mmHg ABG Total CO2 (19-24) mmol/L ABG O2 Saturation (94-97) % BUN (7-17) mg/dL Glucose (74-99) mg/dL POC Glucose (mg/dL) (75-99) mg/dL Calcium (8.4-10.2) mg/dL Alkaline Phosphatase (38-126) U/L Total Protein (6.3-8.2) g/dL Albumin (3.5-5.0) g/dL Crossmatch Assessment and Plan Plan: 1 post three-vessel CABG: Continue post surgical care still seen cardiology and pulmonary. 2 surgical related respiratory failure: On mechanical ventilation hopefully will be off the vent by tomorrow. 3 multiple vessel CAD: Post CABG so far heart function has been good before surgery. 4 type 2 diabetes on insulin: Her A1c was not that good last time she had it few weeks ago with A1c was running over 8. Patient will be on tighter insulin drip and insulin with oral agent after she leaves the ICU. 5 hyperlipidemia continue atorvastatin at higher dose. 6 hypertension: Has been on amlodipine metoprolol and lisinopril. 7 hypothyroidism we'll continue levothyroxine after surgery if she cannot take any oral meds in the next 24 hours which which the dose to half the dose through the IV. 8 chronic and recurrent folliculitis: Patient will be watch carefully after surgery for any sign of skin infection and treated very quickly. 9 anemia: No blood transfusion for the night of further drop in hemoglobin require blood transfusion. 10 GI prophylaxis: Patient will be on pantoprazole IV. 11 thrombocytopenia: We will watch the platelet count in the next 24 hours to make sure this is not related to ELIDIA. CODE STATUS: Full code. Dr. Moreno thank you very much for the consult if I can be any further help to please let me know.
[2016-12-08 18:12] LABS: Glucose,Whole Blood 144 mg/dL (75-99)
[2016-12-08] MEDS: MORPHINE SULFATE 2 MG/ML SYRINGE IVP PRN ×2 (18:28→21:40)
[2016-12-08] MEDS: ACETAMINOPHEN IV (For NPO) 1,000 MG in EMPTY BAG 1 BAG IVPB SCH ×2 (18:56→23:37)
[2016-12-08] MEDS: PROPOFOL 500 MG in EMPTY BAG 1 BAG IV SCH ×2 (18:59→21:53)
[2016-12-08 19:01] LABS: Basophils % (A) 0 %; CH 32.6; CHCM 36.5; Eosinophils % (A) 0 %; HDW 2.81; Luc # (Auto) 0.09; Luc % (Auto) 1; Lymphocytes # (A) 0.9 k/uL (1.0-4.8); Lymphocytes % (A) 12 %; MCH 33.7 pg (25.0-35.0); MCHC 37.6 g/dL (31.0-37.0); MCV 89.6 fL (80.0-100.0); Mean Platelet Volume 8.9; Monocytes # (A) 0.3 k/uL (0-1.0); Monocytes % (A) 5 %; Neutrophils % (A) 82 %; RBC 1.81 m/uL (3.80-5.40); RDW 12.7 % (11.5-15.5); WBC 7.3 k/uL (3.8-10.6); WBC (Perox) 6.81
[2016-12-08 19:05] LABS: HCT 16.2 % (34.0-46.0); HGB 6.1 gm/dL (11.4-16.0)
[2016-12-08 19:12] LABS: Glucose,Whole Blood 134 mg/dL (75-99)
[2016-12-08 20:16] LABS: Glucose,Whole Blood 157 mg/dL (75-99)
[2016-12-08 21:31] LABS: Glucose,Whole Blood 166 mg/dL (75-99)
[2016-12-08 22:09] LABS: Glucose,Whole Blood 164 mg/dL (75-99)
[2016-12-08 22:25] LABS: Basophils # (A) 0.1 k/uL (0-0.2); Basophils % (A) 1 %; CH 31.8; Eosinophils % (A) 0 %; HCT 22.5 % (34.0-46.0); HDW 2.84; Luc # (Auto) 0.05; Luc % (Auto) 1; Lymphocytes # (A) 0.6 k/uL (1.0-4.8); Lymphocytes % (A) 7 %; MCH 31.8 pg (25.0-35.0); MCHC 36.9 g/dL (31.0-37.0); MCV 86.3 fL (80.0-100.0); Mean Platelet Volume 8.5; Monocytes # (A) 0.4 k/uL (0-1.0); Monocytes % (A) 5 %; Neutrophils # (A) 7.7 k/uL (1.3-7.7); Neutrophils % (A) 87 %; RBC 2.61 m/uL (3.80-5.40); WBC 8.9 k/uL (3.8-10.6); WBC (Perox) 8.13
[2016-12-08 22:33] LABS: HGB 8.3 gm/dL (11.4-16.0)
[2016-12-08 22:41] LABS: Anion Gap 9 mmol/L; Blood Urea Nitrogen 19 mg/dL (7-17); Calcium 8.2 mg/dL (8.4-10.2); Carbon Dioxide 22 mmol/L (22-30); Chloride 107 mmol/L (98-107); Glucose 155 mg/dL (74-99); Non-African American GFR(MDRD) >60 (>60 ml/min/1.73 sqM); Potassium 3.5 mmol/L (3.5-5.1); Sodium 138 mmol/L (137-145)
[2016-12-08] MEDS: POTASSIUM CHLORIDE 10 MEQ in WATER FOR INJECTION 1 100ML.BAG IVPB SCH (22:59)
[2016-12-08] MEDS: HEPARIN SODIUM,PORCINE 5,000 UNIT/ML 1 ML VIAL SQ SCH (22:59)
[2016-12-08 23:28] LABS: Glucose,Whole Blood 156 mg/dL (75-99)
[2016-12-09 00:16] LABS: Glucose,Whole Blood 159 mg/dL (75-99)
[2016-12-09 01:18] LABS: Glucose,Whole Blood 153 mg/dL (75-99)
[2016-12-09] MEDS: CLEVIDIPINE BUTYRATE 25 MG in EMPTY BAG 1 BAG IV SCH ×4 (02:06→19:44)
[2016-12-09 02:24] LABS: Glucose,Whole Blood 151 mg/dL (75-99)
[2016-12-09] MEDS: MORPHINE SULFATE 2 MG/ML SYRINGE IVP PRN (02:34)
[2016-12-09] MEDS: IPRATROPIUM-ALBUTEROL 3 ML NEB INHALATION SCH ×5 (03:11→19:33)
[2016-12-09 03:28] LABS: Glucose,Whole Blood 155 mg/dL (75-99)
[2016-12-09 04:09] LABS: Glucose,Whole Blood 148 mg/dL (75-99)
[2016-12-09 04:18] LABS: Basophils % (A) 0 %; CH 31.6; CHCM 36.2; Eosinophils % (A) 0 %; HCT 23.4 % (34.0-46.0); HDW 2.89; HGB 8.5 gm/dL (11.4-16.0); Luc # (Auto) 0.08; Luc % (Auto) 1; Lymphocytes # (A) 0.5 k/uL (1.0-4.8); Lymphocytes % (A) 5 %; MCH 31.8 pg (25.0-35.0); MCHC 36.2 g/dL (31.0-37.0); MCV 87.8 fL (80.0-100.0); Mean Platelet Volume 9.1; Monocytes # (A) 0.4 k/uL (0-1.0); Monocytes % (A) 5 %; Neutrophils # (A) 8.9 k/uL (1.3-7.7); Neutrophils % (A) 90 %; RBC 2.67 m/uL (3.80-5.40); RDW 14.3 % (11.5-15.5); WBC 9.9 k/uL (3.8-10.6); WBC (Perox) 9.09
[2016-12-09 04:36] LABS: INR 1.2 (<1.1)
[2016-12-09 04:38] LABS: Partial Thromboplastin Time 30.7 sec (22.0-30.0); Prothrombin Time 11.8 sec (9.0-12.0)
[2016-12-09 04:45] LABS: Ionized Calcium 4.6 mg/dL (4.5-5.3)
[2016-12-09 04:51] LABS: ALT 23 U/L (9-52); AST 43 U/L (14-36); Alkaline Phosphatase 40 U/L (38-126); Anion Gap 15 mmol/L; Blood Urea Nitrogen 20 mg/dL (7-17); Carbon Dioxide 19 mmol/L (22-30); Chloride 106 mmol/L (98-107); Glucose 139 mg/dL (74-99); Magnesium 1.9 mg/dL (1.6-2.3); Non-African American GFR(MDRD) >60 (>60 ml/min/1.73 sqM); Potassium 3.4 mmol/L (3.5-5.1); Sodium 140 mmol/L (137-145); Total Bilirubin 0.5 mg/dL (0.2-1.3); Total Protein 5.3 g/dL (6.3-8.2)
[2016-12-09 05:15] LABS: ABG Base Excess -6.4 mmol/L; ABG HCO3 18 mmol/L (21-25); ABG PCO2 34 mmHg (35-45); ABG PH 7.35 (7.35-7.45); ABG PO2 110 mmHg (83-108); ABG TCO2 19 mmol/L (19-24)
[2016-12-09 05:36] LABS: Glucose,Whole Blood 136 mg/dL (75-99)
[2016-12-09] MEDS ORDERED: FUROSEMIDE 10 MG/ML 2 ML VIAL IV STA (05:43)
[2016-12-09] MEDS: ACETAMINOPHEN IV (For NPO) 1,000 MG in EMPTY BAG 1 BAG IVPB SCH ×3 (05:45→18:03)
[2016-12-09] MEDS: INSULIN REGULAR 100 UNIT in SODIUM CHLORIDE 0.9% 100 ML IV SCH (06:11)
[2016-12-09] MEDS: POTASSIUM CHLORIDE 10 MEQ in WATER FOR INJECTION 1 100ML.BAG IVPB SCH ×3 (06:21→08:09)
[2016-12-09 06:22] LABS: Glucose,Whole Blood 126 mg/dL (75-99)
[2016-12-09] MEDS: MAGNESIUM SULFATE-D5W PMX 1 GM in DEXTROSE/WATER 1 100ML.BAG IVPB SCH ×2 (06:47→08:09)
[2016-12-09 07:14] LABS: Glucose,Whole Blood 142 mg/dL (75-99)
[2016-12-09] MEDS ORDERED: LEVOTHYROXINE 50 MCG TAB PO SCH (07:30)
--- NOTE | 2016-12-09 07:37 | XR ---
EXAMINATION TYPE: XR chest 1V portable DATE OF EXAM: 12/09/2016 COMPARISON: 12/08/2016 HISTORY: Postop TECHNIQUE: Single frontal view of the chest is obtained. FINDINGS: ET and NG tube have been removed. Be[place]-Tyrone catheter and chest tube stable. No sizable pne umothorax. Subsegmental changes involving both lung bases. Arthropathy shoulders. IMPRESSION: 1. Postsurgical changes with suspected basilar atelectasis.
[2016-12-09 08:08] LABS: Glucose,Whole Blood 105 mg/dL (75-99)
[2016-12-09] MEDS: HEPARIN SODIUM,PORCINE 5,000 UNIT/ML 1 ML VIAL SQ SCH ×2 (08:09→16:32)
[2016-12-09] MEDS: CLOPIDOGREL 75 MG TAB PO SCH (08:10)
[2016-12-09] MEDS: ATORVASTATIN 40 MG TAB PO SCH (08:10)
[2016-12-09] MEDS: ASPIRIN 325 MG TAB PO SCH (08:10)
[2016-12-09] MEDS ORDERED: METOPROLOL TARTRATE 12.5 MG TAB PO SCH (09:00)
[2016-12-09] MEDS ORDERED: PANTOPRAZOLE 40 MG/10 ML VIAL IVP SCH (09:00)
[2016-12-09 09:01] LABS: Glucose,Whole Blood 103 mg/dL (75-99)
[2016-12-09 09:12] LABS: ABG Base Excess -0.5 mmol/L; ABG HCO3 23 mmol/L (21-25); ABG Oxygen Saturation 99.7 % (94-97); ABG PCO2 36 mmHg (35-45); ABG PH 7.42 (7.35-7.45); ABG PO2 186 mmHg (83-108); ABG TCO2 24 mmol/L (19-24)
[2016-12-09 09:13] LABS: ABG PCO2 33 mmHg (35-45); ABG PH 7.45 (7.35-7.45); ABG PO2 285 mmHg (83-108)
[2016-12-09 09:14] LABS: ABG Base Excess -0.8 mmol/L; ABG HCO3 22 mmol/L (21-25); ABG Oxygen Saturation 99.9 % (94-97); ABG TCO2 23 mmol/L (19-24)
[2016-12-09 09:15] LABS: ABG Base Excess -0.1 mmol/L; ABG HCO3 23 mmol/L (21-25); ABG Oxygen Saturation 99.9 % (94-97); ABG PCO2 31 mmHg (35-45); ABG PH 7.48 (7.35-7.45); ABG PO2 280 mmHg (83-108); ABG TCO2 24 mmol/L (19-24)
[2016-12-09] MEDS: ceFAZolin 2 GM in SODIUM CHLORIDE 0.9% 100 ML IVPB SCH ×3 (09:17)
[2016-12-09] MEDS: METOPROLOL TARTRATE 25 MG TAB PO SCH ×2 (09:18→21:21)
--- NOTE | 2016-12-09 09:28 | P.PN ---
Subjective Principal diagnosis: Severe stenotic multivessel coronary artery disease. Hypertension. Hyperlipidemia. Type 2 diabetes mellitus with hemoglobin A1c 6.8%. Family history of early coronary artery disease. Hypothyroid. Previous tobacco dependence. POD #1 elective coronary artery bypass grafting, left internal mammary artery to the left anterior descending artery, reverse saphenous vein graft to the obtuse marginal artery, reverse saphenous vein graft to the posterior descending artery, left lower extremity endoscopic vein harvesting, epi-aortic ultrasound, intraoperative transesophageal echocardiogram, graft flow measurement using the Medist[employer] system. Acute blood loss anemia postoperative, expected outcome of surgery, treated with transfusion of 1 unit packed red blood cells. Patient currently sitting up in bed in no acute distress. States her pain is well-controlled. Was extubated this morning at 4:37 AM. Objective - Vital Signs Vital signs: Vital Signs Temp 98.1 F 12/08/16 20:45 Pulse 71 12/09/16 08:30 Resp 11 L 12/09/16 08:30 BP 106/49 12/09/16 08:30 Pulse Ox 97 12/09/16 08:30 Intake & Output 12/08/16 12/09/16 12/09/16 18:59 06:59 18:59 Intake Total 429.945 3236.835 416.672 Output Total 2872 1356 245 Balance -2667.526 1088.835 171.672 Weight 103.4 kg Intake: IV 200 1429 359 0.9 NaCl- for Pressure 99 9 Bag ACETAMINOPHEN IV (For NPO 200 100 ) 1,000 mg In Empty Bag 1 bag @ 400 mls/hr IVPB Q6HR [facility] Rx#:[id number] CO/CI injection fluid 230 Lactated Ringers 1,000 ml 100 600 50 @ 20 mls/hr IV .Q24H [facility] Rx#:[id number] Magnesium Sulfate 10 mEq/ 100 100ml Potassium Chloride 10 mEq 200 100 /100ml ceFAZolin 2 gm In Sodium 100 100 Chloride 0.9% 100 ml @ 100 mls/hr IVPB Q8HR [facility] Rx#:[id number] Intake, IV Titration 4.474 295.835 57.672 Amount Clevidipine Butyrate 25 3.466 178.400 40.667 mg In Empty Bag 1 bag @ 1 MG/HR 2 mls/hr IV .Q24H [facility] Rx#:[id number] Insulin Regular 100 unit 1.008 65.236 17.005 In Sodium Chloride 0.9% 100 ml @ Per Protocol IV .Q0M [facility] Rx#:[id number] Propofol 500 mg In Empty 52.199 Bag 1 bag @ Titrate IV . Q0M [facility] Rx#:[id number] Blood Product 620 Rc As-3 Unit 310 [id number] Other 100 Rc As-3 Unit 100 [id number] Output: Chest Tube Drainage 85 226 40 Chest Tube Left Lateral 34 47 10 Chest Chest Tube Right Pleural/ 51 179 30 Mediastinal Gastric Drainage 180 Drainage 25 Left Rodriguez 25 Urine 987 725 205 Emesis 200 Estimated Blood Loss 1800 Other: Voiding Method Indwelling Catheter Indwelling Catheter ABP, PAP, CO, CI - Last Documented Arterial Blood Pressure 116/45 Pulmonary Artery Pressure 36/18 Cardiac Output 4.8 Cardiac Index 2.7 - Constitutional General appearance: Present: cooperative, no acute distress - Respiratory Details: Lungs sounds diminished bilaterally. Respirations even, nonlabored. Currently on 5 L nasal cannula with oxygen saturation 92%. Able to achieve 1000 mL on her incentive spirometry. Left pleural chest tube to -20 cm wall suction, 30 mL serosanguineous drainage overnight, 80 mL since surgery. Right/mediastinal chest tubes to -20 cm wall suction, 130 mL serous and was drainage overnight, 280 mL since surgery. No air leaks present. - Cardiovascular Details: S1, S2 present. Regular rate and rhythm, normal sinus rhythm with first-degree AV block on telemetry. Sternum stable. Epicardial pacemaker wires present, connected to generator, VVI with a backup rate 50 bpm. Right radial a line present. Right internal jugular Cordis/Lyons present. Heart hugger in place with patient demonstrating appropriate use. Teds/SCDs present. No edema present. - Gastrointestinal Gastrointestinal Comment(s): Abdomen soft, nontender, nondistended. Active bowel sounds 4 quadrants. Tolerating ice chips. - Genitourinary Genitourinary Comment(s): Chávez present draining clear, yellow urine. Output was 30-80 mL/h overnight however decreased to 20 mL then no output early this morning. Patient given Lasix IV push with output 150 mL the following hour. - Integumentary Integumentary Comment(s): Anterior chest incision well approximated and covered with dry intact dressing. Left lower extremity EVH site well approximated with CARMEN drain present, minimal output. - Musculoskeletal Musculoskeletal: Present: strength equal bilaterally - Psychiatric Psychiatric: Present: A&O x's 3, appropriate affect, intact judgment & insight - Allied health notes Allied health notes reviewed: nursing - Labs CBC & Chem 7: 12/09/16 04:05 12/09/16 04:05 Labs: Abnormal Lab Results - Last 24 Hours (Table) 12/03/16 12/08/16 12/08/16 Range/Units 09:01 08:42 11:01 RBC (3.80-5.40) m/uL Hgb (11.4-16.0) gm/dL Hct (34.0-46.0) % MCHC (31.0-37.0) g/dL Plt Count (150-450) k/uL Neutrophils # (1.3-7.7) k/uL Lymphocytes # (1.0-4.8) k/uL PT (9.0-12.0) sec APTT (22.0-30.0) sec ABG pH (7.35-7.45) ABG pCO2 (35-45) mmHg ABG pO2 186 H (83-108) mmHg ABG HCO3 (21-25) mmol/L ABG Total CO2 (19-24) mmol/L ABG O2 Saturation 99.7 H (94-97) % ABG Hematocrit 33 L (34.0-46.0) % Potassium (3.5-5.1) mmol/L Carbon Dioxide (22-30) mmol/L BUN (7-17) mg/dL Glucose (74-99) mg/dL POC Glucose (mg/dL) 136 H (75-99) mg/dL Calcium (8.4-10.2) mg/dL AST (14-36) U/L Alkaline Phosphatase (38-126) U/L Total Protein (6.3-8.2) g/dL Albumin (3.5-5.0) g/dL Crossmatch See Detail 12/08/16 12/08/16 12/08/16 Range/Units 11:02 11:38 12:21 RBC (3.80-5.40) m/uL Hgb (11.4-16.0) gm/dL Hct (34.0-46.0) % MCHC (31.0-37.0) g/dL Plt Count (150-450) k/uL Neutrophils # (1.3-7.7) k/uL Lymphocytes # (1.0-4.8) k/uL PT (9.0-12.0) sec APTT (22.0-30.0) sec ABG pH (7.35-7.45) ABG pCO2 33 L (35-45) mmHg ABG pO2 285 H (83-108) mmHg ABG HCO3 (21-25) mmol/L ABG Total CO2 (19-24) mmol/L ABG O2 Saturation 99.9 H (94-97) % ABG Hematocrit 25 L (34.0-46.0) % Potassium (3.5-5.1) mmol/L Carbon Dioxide (22-30) mmol/L BUN (7-17) mg/dL Glucose (74-99) mg/dL POC Glucose (mg/dL) 144 H 149 H (75-99) mg/dL Calcium (8.4-10.2) mg/dL AST (14-36) U/L Alkaline Phosphatase (38-126) U/L Total Protein (6.3-8.2) g/dL Albumin (3.5-5.0) g/dL Crossmatch 12/08/16 12/08/16 12/08/16 Range/Units 13:19 13:56 14:54 RBC (3.80-5.40) m/uL Hgb (11.4-16.0) gm/dL Hct (34.0-46.0) % MCHC (31.0-37.0) g/dL Plt Count (150-450) k/uL Neutrophils # (1.3-7.7) k/uL Lymphocytes # (1.0-4.8) k/uL PT (9.0-12.0) sec APTT (22.0-30.0) sec ABG pH (7.35-7.45) ABG pCO2 (35-45) mmHg ABG pO2 (83-108) mmHg ABG HCO3 (21-25) mmol/L ABG Total CO2 (19-24) mmol/L ABG O2 Saturation (94-97) % ABG Hematocrit (34.0-46.0) % Potassium (3.5-5.1) mmol/L Carbon Dioxide (22-30) mmol/L BUN (7-17) mg/dL Glucose (74-99) mg/dL POC Glucose (mg/dL) 300 H 281 H 235 H (75-99) mg/dL Calcium (8.4-10.2) mg/dL AST (14-36) U/L Alkaline Phosphatase (38-126) U/L Total Protein (6.3-8.2) g/dL Albumin (3.5-5.0) g/dL Crossmatch 12/08/16 12/08/16 12/08/16 Range/Units 16:00 16:04 16:04 RBC 1.90 L (3.80-5.40) m/uL Hgb 6.2 L* D (11.4-16.0) gm/dL Hct 17.4 L* (34.0-46.0) % MCHC (31.0-37.0) g/dL Plt Count 88 L D (150-450) k/uL Neutrophils # (1.3-7.7) k/uL Lymphocytes # 0.9 L (1.0-4.8) k/uL PT (9.0-12.0) sec APTT (22.0-30.0) sec ABG pH (7.35-7.45) ABG pCO2 (35-45) mmHg ABG pO2 (83-108) mmHg ABG HCO3 (21-25) mmol/L ABG Total CO2 (19-24) mmol/L ABG O2 Saturation (94-97) % ABG Hematocrit (34.0-46.0) % Potassium (3.5-5.1) mmol/L Carbon Dioxide (22-30) mmol/L BUN 19 H (7-17) mg/dL Glucose 165 H (74-99) mg/dL POC Glucose (mg/dL) 170 H (75-99) mg/dL Calcium 7.4 L (8.4-10.2) mg/dL AST (14-36) U/L Alkaline Phosphatase 35 L (38-126) U/L Total Protein 5.0 L (6.3-8.2) g/dL Albumin 3.2 L (3.5-5.0) g/dL Crossmatch 12/08/16 12/08/16 12/08/16 Range/Units 16:04 16:25 17:01 RBC (3.80-5.40) m/uL Hgb (11.4-16.0) gm/dL Hct (34.0-46.0) % MCHC (31.0-37.0) g/dL Plt Count (150-450) k/uL Neutrophils # (1.3-7.7) k/uL Lymphocytes # (1.0-4.8) k/uL PT 12.4 H (9.0-12.0) sec APTT (22.0-30.0) sec ABG pH 7.28 L (7.35-7.45) ABG pCO2 55 H (35-45) mmHg ABG pO2 344 H (83-108) mmHg ABG HCO3 (21-25) mmol/L ABG Total CO2 27 H (19-24) mmol/L ABG O2 Saturation 99.9 H (94-97) % ABG Hematocrit (34.0-46.0) % Potassium (3.5-5.1) mmol/L Carbon Dioxide (22-30) mmol/L BUN (7-17) mg/dL Glucose (74-99) mg/dL POC Glucose (mg/dL) 156 H (75-99) mg/dL Calcium (8.4-10.2) mg/dL AST (14-36) U/L Alkaline Phosphatase (38-126) U/L Total Protein (6.3-8.2) g/dL Albumin (3.5-5.0) g/dL Crossmatch 12/08/16 12/08/16 12/08/16 Range/Units 17:25 18:09 18:55 RBC 1.81 L (3.80-5.40) m/uL Hgb 6.1 L* (11.4-16.0) gm/dL Hct 16.2 L* (34.0-46.0) % MCHC 37.6 H (31.0-37.0) g/dL Plt Count 97 L (150-450) k/uL Neutrophils # (1.3-7.7) k/uL Lymphocytes # 0.9 L (1.0-4.8) k/uL PT (9.0-12.0) sec APTT (22.0-30.0) sec ABG pH (7.35-7.45) ABG pCO2 33 L (35-45) mmHg ABG pO2 79 L (83-108) mmHg ABG HCO3 (21-25) mmol/L ABG Total CO2 (19-24) mmol/L ABG O2 Saturation (94-97) % ABG Hematocrit (34.0-46.0) % Potassium (3.5-5.1) mmol/L Carbon Dioxide (22-30) mmol/L BUN (7-17) mg/dL Glucose (74-99) mg/dL POC Glucose (mg/dL) 144 H (75-99) mg/dL Calcium (8.4-10.2) mg/dL AST (14-36) U/L Alkaline Phosphatase (38-126) U/L Total Protein (6.3-8.2) g/dL Albumin (3.5-5.0) g/dL Crossmatch 12/08/16 12/08/16 12/08/16 Range/Units 18:59 20:13 21:26 RBC (3.80-5.40) m/uL Hgb (11.4-16.0) gm/dL Hct (34.0-46.0) % MCHC (31.0-37.0) g/dL Plt Count (150-450) k/uL Neutrophils # (1.3-7.7) k/uL Lymphocytes # (1.0-4.8) k/uL PT (9.0-12.0) sec APTT (22.0-30.0) sec ABG pH (7.35-7.45) ABG pCO2 (35-45) mmHg ABG pO2 (83-108) mmHg ABG HCO3 (21-25) mmol/L ABG Total CO2 (19-24) mmol/L ABG O2 Saturation (94-97) % ABG Hematocrit (34.0-46.0) % Potassium (3.5-5.1) mmol/L Carbon Dioxide (22-30) mmol/L BUN (7-17) mg/dL Glucose (74-99) mg/dL POC Glucose (mg/dL) 134 H 157 H 166 H (75-99) mg/dL Calcium (8.4-10.2) mg/dL AST (14-36) U/L Alkaline Phosphatase (38-126) U/L Total Protein (6.3-8.2) g/dL Albumin (3.5-5.0) g/dL Crossmatch 12/08/16 12/08/16 12/08/16 Range/Units 22:05 22:05 22:07 RBC 2.61 L (3.80-5.40) m/uL Hgb 8.3 L D (11.4-16.0) gm/dL Hct 22.5 L (34.0-46.0) % MCHC (31.0-37.0) g/dL Plt Count 101 L (150-450) k/uL Neutrophils # (1.3-7.7) k/uL Lymphocytes # 0.6 L (1.0-4.8) k/uL PT (9.0-12.0) sec APTT (22.0-30.0) sec ABG pH (7.35-7.45) ABG pCO2 (35-45) mmHg ABG pO2 (83-108) mmHg ABG HCO3 (21-25) mmol/L ABG Total CO2 (19-24) mmol/L ABG O2 Saturation (94-97) % ABG Hematocrit (34.0-46.0) % Potassium (3.5-5.1) mmol/L Carbon Dioxide (22-30) mmol/L BUN 19 H (7-17) mg/dL Glucose 155 H (74-99) mg/dL POC Glucose (mg/dL) 164 H (75-99) mg/dL Calcium 8.2 L (8.4-10.2) mg/dL AST (14-36) U/L Alkaline Phosphatase (38-126) U/L Total Protein (6.3-8.2) g/dL Albumin (3.5-5.0) g/dL Crossmatch 12/08/16 12/09/16 12/09/16 Range/Units 23:14 00:13 01:04 RBC (3.80-5.40) m/uL Hgb (11.4-16.0) gm/dL Hct (34.0-46.0) % MCHC (31.0-37.0) g/dL Plt Count (150-450) k/uL Neutrophils # (1.3-7.7) k/uL Lymphocytes # (1.0-4.8) k/uL PT (9.0-12.0) sec APTT (22.0-30.0) sec ABG pH (7.35-7.45) ABG pCO2 (35-45) mmHg ABG pO2 (83-108) mmHg ABG HCO3 (21-25) mmol/L ABG Total CO2 (19-24) mmol/L ABG O2 Saturation (94-97) % ABG Hematocrit (34.0-46.0) % Potassium (3.5-5.1) mmol/L Carbon Dioxide (22-30) mmol/L BUN (7-17) mg/dL Glucose (74-99) mg/dL POC Glucose (mg/dL) 156 H 159 H 153 H (75-99) mg/dL Calcium (8.4-10.2) mg/dL AST (14-36) U/L Alkaline Phosphatase (38-126) U/L Total Protein (6.3-8.2) g/dL Albumin (3.5-5.0) g/dL Crossmatch 12/09/16 12/09/16 12/09/16 Range/Units 02:11 03:15 04:05 RBC 2.67 L (3.80-5.40) m/uL Hgb 8.5 L (11.4-16.0) gm/dL Hct 23.4 L (34.0-46.0) % MCHC (31.0-37.0) g/dL Plt Count 104 L (150-450) k/uL Neutrophils # 8.9 H (1.3-7.7) k/uL Lymphocytes # 0.5 L (1.0-4.8) k/uL PT (9.0-12.0) sec APTT (22.0-30.0) sec ABG pH (7.35-7.45) ABG pCO2 (35-45) mmHg ABG pO2 (83-108) mmHg ABG HCO3 (21-25) mmol/L ABG Total CO2 (19-24) mmol/L ABG O2 Saturation (94-97) % ABG Hematocrit (34.0-46.0) % Potassium (3.5-5.1) mmol/L Carbon Dioxide (22-30) mmol/L BUN (7-17) mg/dL Glucose (74-99) mg/dL POC Glucose (mg/dL) 151 H 155 H (75-99) mg/dL Calcium (8.4-10.2) mg/dL AST (14-36) U/L Alkaline Phosphatase (38-126) U/L Total Protein (6.3-8.2) g/dL Albumin (3.5-5.0) g/dL Crossmatch 12/09/16 12/09/16 12/09/16 Range/Units 04:05 04:05 04:06 RBC (3.80-5.40) m/uL Hgb (11.4-16.0) gm/dL Hct (34.0-46.0) % MCHC (31.0-37.0) g/dL Plt Count (150-450) k/uL Neutrophils # (1.3-7.7) k/uL Lymphocytes # (1.0-4.8) k/uL PT (9.0-12.0) sec APTT 30.7 H (22.0-30.0) sec ABG pH (7.35-7.45) ABG pCO2 (35-45) mmHg ABG pO2 (83-108) mmHg ABG HCO3 (21-25) mmol/L ABG Total CO2 (19-24) mmol/L ABG O2 Saturation (94-97) % ABG Hematocrit (34.0-46.0) % Potassium 3.4 L (3.5-5.1) mmol/L Carbon Dioxide 19 L (22-30) mmol/L BUN 20 H (7-17) mg/dL Glucose 139 H (74-99) mg/dL POC Glucose (mg/dL) 148 H (75-99) mg/dL Calcium 8.0 L (8.4-10.2) mg/dL AST 43 H (14-36) U/L Alkaline Phosphatase (38-126) U/L Total Protein 5.3 L (6.3-8.2) g/dL Albumin (3.5-5.0) g/dL Crossmatch 12/09/16 12/09/16 12/09/16 Range/Units 04:12 05:23 06:09 RBC (3.80-5.40) m/uL Hgb (11.4-16.0) gm/dL Hct (34.0-46.0) % MCHC (31.0-37.0) g/dL Plt Count (150-450) k/uL Neutrophils # (1.3-7.7) k/uL Lymphocytes # (1.0-4.8) k/uL PT (9.0-12.0) sec APTT (22.0-30.0) sec ABG pH (7.35-7.45) ABG pCO2 34 L (35-45) mmHg ABG pO2 110 H (83-108) mmHg ABG HCO3 18 L (21-25) mmol/L ABG Total CO2 (19-24) mmol/L ABG O2 Saturation 98.0 H (94-97) % ABG Hematocrit (34.0-46.0) % Potassium (3.5-5.1) mmol/L Carbon Dioxide (22-30) mmol/L BUN (7-17) mg/dL Glucose (74-99) mg/dL POC Glucose (mg/dL) 136 H 126 H (75-99) mg/dL Calcium (8.4-10.2) mg/dL AST (14-36) U/L Alkaline Phosphatase (38-126) U/L Total Protein (6.3-8.2) g/dL Albumin (3.5-5.0) g/dL Crossmatch 12/09/16 12/09/16 12/09/16 Range/Units 07:00 08:06 08:58 RBC (3.80-5.40) m/uL Hgb (11.4-16.0) gm/dL Hct (34.0-46.0) % MCHC (31.0-37.0) g/dL Plt Count (150-450) k/uL Neutrophils # (1.3-7.7) k/uL Lymphocytes # (1.0-4.8) k/uL PT (9.0-12.0) sec APTT (22.0-30.0) sec ABG pH (7.35-7.45) ABG pCO2 (35-45) mmHg ABG pO2 (83-108) mmHg ABG HCO3 (21-25) mmol/L ABG Total CO2 (19-24) mmol/L ABG O2 Saturation (94-97) % ABG Hematocrit (34.0-46.0) % Potassium (3.5-5.1) mmol/L Carbon Dioxide (22-30) mmol/L BUN (7-17) mg/dL Glucose (74-99) mg/dL POC Glucose (mg/dL) 142 H 105 H 103 H (75-99) mg/dL Calcium (8.4-10.2) mg/dL AST (14-36) U/L Alkaline Phosphatase (38-126) U/L Total Protein (6.3-8.2) g/dL Albumin (3.5-5.0) g/dL Crossmatch - Imaging and Cardiology Chest x-ray: report reviewed, image reviewed Assessment and Plan (1) Morbid obesity with BMI of 40.0-44.9, adult Status: Acute (2) Diabetes mellitus type 2 in obese Status: Acute (3) Family history of coronary artery disease Status: Acute (4) Hyperlipidemia Status: Acute (5) Hypertension Status: Acute (6) Tobacco dependence in remission Status: Acute (7) Triple vessel coronary artery disease Status: Acute (8) Hypothyroid Status: Acute Plan: 1. Continue aspirin, statin, Plavix, beta steven. Will maximize beta steven therapy as tolerated. 2. Wean Cleviprex. Discontinue nitro drip. 3. Discontinue Lyons. Cordis to continuous CVP monitoring. 4. Wean O2. Encourage incentive spirometry. 5. Increase activity, out of bed to chair. Physical therapy to follow. 6. GI/DVT prophylaxis. 7. Will monitor daily labs and x-rays. 8. More recommendations as patient progresses. Time with Patient: Greater than 30
[2016-12-09] MEDS: ONDANSETRON 4 MG/2 ML VIAL IVP PRN ×2 (09:58→19:42)
[2016-12-09 10:00] LABS: Glucose,Whole Blood 133 mg/dL (75-99)
[2016-12-09 10:36] LABS: ABG PCO2 35 mmHg (35-45); ABG PH 7.45 (7.35-7.45); ABG PO2 359 mmHg (83-108)
[2016-12-09 10:37] LABS: ABG Base Excess 0.3 mmol/L; ABG HCO3 24 mmol/L (21-25); ABG TCO2 25 mmol/L (19-24)
[2016-12-09 10:38] LABS: ABG Base Excess -0.9 mmol/L; ABG HCO3 24 mmol/L (21-25); ABG Oxygen Saturation 99.8 % (94-97); ABG PCO2 42 mmHg (35-45); ABG PH 7.37 (7.35-7.45); ABG PO2 219 mmHg (83-108); ABG TCO2 25 mmol/L (19-24)
[2016-12-09 10:39] LABS: ABG PH 7.34 (7.35-7.45)
[2016-12-09 10:40] LABS: ABG Base Excess -1.8 mmol/L; ABG HCO3 23 mmol/L (21-25); ABG Oxygen Saturation 99.9 % (94-97); ABG PCO2 44 mmHg (35-45); ABG PO2 321 mmHg (83-108); ABG TCO2 25 mmol/L (19-24)
[2016-12-09 10:41] LABS: ABG Base Excess -2.7 mmol/L; ABG HCO3 22 mmol/L (21-25); ABG PCO2 40 mmHg (35-45); ABG PH 7.36 (7.35-7.45); ABG PO2 172 mmHg (83-108); ABG TCO2 23 mmol/L (19-24)
[2016-12-09 10:42] LABS: ABG Oxygen Saturation 99.5 % (94-97)
[2016-12-09 10:59] LABS: Glucose,Whole Blood 125 mg/dL (75-99)
--- NOTE | 2016-12-09 11:08 | P.CNPUL ---
History of Present Illness Consult date: 12/09/16 Requesting physician: Timur Moreno Reason for consult: other (Ventilator/critical care management) Chief complaint: Chest pain History of present illness: This is a very pleasant 61-year-old female patient who follows with as her primary care physician. She has a history of diabetes mellitus, hypertension, hypothyroidism, hyperlipidemia. She was having issues with increased dyspnea with minimal exertion and chest discomfort. She subsequently undergone stress testing and follow-up cardiac catheterization which revealed triple vessel coronary disease. She presented here yesterday 12/08/2016 for an elective coronary artery bypass grafting which was performed by Dr. Moreno. She received a OZUNA to the LAD, reverse saphenous grafts to the obtuse marginal and PDA. She was successfully x-rayed approximate 4:30 this morning. At that time ABGs revealed a PaO2 of 110, pCO2 34 and pH of 7.35 and 60% FiO2 with excellent weaning parameters. Currently, she is seen sitting up in the chair at the bedside. She is awake and alert in no acute distress. He is maintaining good O2 saturations in the upper 90s on 5 L/m per nasal cannula. Her chest x-ray reveals some postsurgical changes along with suspected bibasilar atelectasis. She has a right left and mediastinal chest tube in place. [place]-Tyrone Catheter in place. PA pressure 36/18, CVP 15. Currently on clevidipine at 8 mg per hour, insulin drip at 8.5 units per hour, lactated Ringer's at 20 mL's per hour. Review of Systems 14 point review of systems was conducted. All negative other than as mentioned in the HPI. Past Medical History Past Medical History: Diabetes Mellitus, Hypertension, Thyroid Disorder Additional Past Medical History / Comment(s): chest tightness w/ SOB,diabetic retinopathy-blind rt eye,glaucoma lt eye History of Any Multi-Drug Resistant Organisms: None Reported Past Surgical History: Appendectomy, Bariatric Surgery Additional Past Surgical History / Comment(s): Lapband,D&C, cataract surgery lt eye,laser surgery lt eye for bleeding and glaucoma Past Anesthesia/Blood Transfusion Reactions: No Reported Reaction Additional Past Anesthesia/Blood Transfusion Reaction / Comment(s): no problems with prior blood transfusions. Past Psychological History: No Psychological Hx Reported Smoking Status: Former smoker - Past Family History Mother Family Medical History: Coronary Artery Disease (CAD) Father Family Medical History: Coronary Artery Disease (CAD) Additional Family Medical History / Comment(s): skin CA Brother(s) Family Medical History: Myocardial Infarction (SC) Additional Family Medical History / Comment(s): brother of heart problem Medications and Allergies Home Medications Medication Instructions Recorded Confirmed Type Atorvastatin [Lipitor] 10 mg PO HS 09/13/16 12/08/16 History Dulaglutide [Trulicity] 0.5 mg SQ TH 09/13/16 12/08/16 History Ergocalciferol (Vitamin D2) 50,000 unit PO TH 09/13/16 12/08/16 History [Vitamin D2] Insulin Glargine,Hum.rec.anlog 30 unit SQ 09/13/16 12/08/16 History [Lantus Solostar] Levothyroxine Sodium [Synthroid] 50 mcg PO QAM 09/13/16 12/08/16 History Lisinopril-Hctz 20-25 mg 1 tab PO QAM 11/19/16 12/08/16 History [Zestoretic 20-25] Metoprolol Tartrate [Lopressor] 25 mg PO BID 11/19/16 12/08/16 History Aspirin 325 mg PO DAILY 12/04/16 12/08/16 History Nitroglycerin Sl Tabs [Nitrostat] 0.4 mg SUBLINGUAL Q5M PRN 12/04/16 12/08/16 History Allergies Allergy/AdvReac Type Severity Reaction Status Date / Time No Known Allergies Allergy Verified 12/08/16 06:06 Physical Exam Vitals: Vital Signs Temp Pulse Pulse Resp BP Pulse Ox 12/09/16 10:00 71 41 H 97 12/09/16 09:30 73 20 106/49 96 12/09/16 09:00 73 25 H 106/49 98 12/09/16 08:30 71 11 L 106/49 97 12/09/16 08:10 70 12/09/16 08:00 68 72 17 106/49 95 12/09/16 07:30 66 14 93 L 12/09/16 07:00 67 11 L 94 L 12/09/16 06:30 69 11 L 97 12/09/16 06:00 69 22 98 12/09/16 05:30 70 21 100 12/09/16 05:00 70 16 99 12/09/16 04:30 70 17 100 12/09/16 04:00 71 16 100 12/09/16 03:30 71 16 100 12/09/16 03:22 72 12/09/16 03:14 75 12/09/16 03:00 72 17 98 12/09/16 02:30 71 19 96 12/09/16 02:00 71 23 96 12/09/16 01:30 72 21 97 12/09/16 01:00 71 22 98 12/09/16 00:30 73 20 97 12/09/16 00:00 74 22 98 12/08/16 23:30 77 21 99 12/08/16 23:19 73 12/08/16 23:08 71 12/08/16 23:00 71 20 99 12/08/16 22:30 72 21 99 12/08/16 22:00 73 24 98 12/08/16 21:30 72 24 99 12/08/16 21:00 73 24 99 12/08/16 20:45 98.1 F 73 24 109/49 12/08/16 20:30 75 22 100 12/08/16 20:00 76 73 21 100 12/08/16 19:41 98.1 F 77 12 90/42 100 12/08/16 19:30 86 20 100 12/08/16 19:10 84 12/08/16 19:00 86 100 12/08/16 18:53 82 12/08/16 18:30 84 100 12/08/16 18:24 82 100 12/08/16 17:30 75 12 100 12/08/16 17:00 78 12 100 12/08/16 16:30 76 12 100 12/08/16 16:00 74 12 99 Intake and Output 12/08/16 12/09/16 12/09/16 22:59 06:59 14:59 Intake Total 3421.756 5231.310 766.672 Output Total 3348 880 355 Balance -1898.001 319.310 411.672 Intake: IV 617 1012 609 0.9 NaCl- for Pressure 27 72 9 Bag ACETAMINOPHEN IV (For NPO 100 100 100 ) 1,000 mg In Empty Bag 1 bag @ 400 mls/hr IVPB Q6HR [facility] Rx#:[id number] CO/CI injection fluid 90 140 Lactated Ringers 1,000 ml 300 400 100 @ 20 mls/hr IV .Q24H [facility] Rx#:[id number] Magnesium Sulfate 10 mEq/ 200 100ml Potassium Chloride 10 mEq 200 200 /100ml ceFAZolin 2 gm In Sodium 100 100 Chloride 0.9% 100 ml @ 100 mls/hr IVPB Q8HR [facility] Rx#:[id number] Intake, IV Titration 112.999 187.310 157.672 Amount Clevidipine Butyrate 25 62.866 119 40.667 mg In Empty Bag 1 bag @ 1 MG/HR 2 mls/hr IV .Q24H [facility] Rx#:[id number] Insulin Regular 100 unit 10.173 56.071 17.005 In Sodium Chloride 0.9% 100 ml @ Per Protocol IV .Q0M [facility] Rx#:[id number] Lactated Ringers 1,000 ml 100 @ 20 mls/hr IV .Q24H [facility] Rx#:[id number] Propofol 500 mg In Empty 39.960 12.239 Bag 1 bag @ Titrate IV . Q0M [facility] Rx#:[id number] Blood Product 620 Rc As-3 Unit 310 [id number] Other 100 Rc As-3 Unit 100 [id number] Output: Chest Tube Drainage 151 160 75 Chest Tube Left Lateral 53 28 45 Chest Chest Tube Right Pleural/ 98 132 30 Mediastinal Gastric Drainage 180 Drainage 25 Left Rodriguez 25 Urine 1397 315 280 Emesis 200 Estimated Blood Loss 1800 Other: Voiding Method Indwelling Catheter Indwelling Catheter Indwelling Catheter Weight 103.4 kg ABP, PAP, CO, CI - Last 8 Hours Arterial Blood Pressure 127/43 Arterial Blood Pressure 146/51 Arterial Blood Pressure 135/43 Arterial Blood Pressure 116/45 Arterial Blood Pressure 112/46 Arterial Blood Pressure 112/45 Arterial Blood Pressure 112/44 Arterial Blood Pressure 119/45 Arterial Blood Pressure 118/46 Arterial Blood Pressure 119/47 Arterial Blood Pressure 115/44 Arterial Blood Pressure 113/42 Arterial Blood Pressure 111/43 Arterial Blood Pressure 127/51 Pulmonary Artery Pressure 36/18 Pulmonary Artery Pressure 36/17 Pulmonary Artery Pressure 36/19 Pulmonary Artery Pressure 39/20 Pulmonary Artery Pressure 37/20 Pulmonary Artery Pressure 37/18 Pulmonary Artery Pressure 35/17 Pulmonary Artery Pressure 36/17 Pulmonary Artery Pressure 32/18 Pulmonary Artery Pressure 32/16 Pulmonary Artery Pressure 30/15 Pulmonary Artery Pressure 43/23 Cardiac Output 4.8 Cardiac Output 4.8 Cardiac Output 4.8 Cardiac Output 4.8 Cardiac Output 4.8 Cardiac Output 5.3 Cardiac Output 5.3 Cardiac Output 5.5 Cardiac Index 2.4 Cardiac Index 2.7 Cardiac Index 2.8 GENERAL EXAM: Alert, fairly comfortable in no apparent distress. HEAD: Normocephalic. EYES: Normal reaction of pupils, equal size. NOSE: Clear with pink turbinates. THROAT: No erythema or exudates. NECK: No masses, no JVD. CHEST: Sternal dressing dry and intact. LUNGS: Equal air entry with crackles in the posterior bases. CVS: S1 and S2 normal with no audible murmurs, regular rhythm. ABDOMEN: No hepatosplenomegaly, normal bowel sounds, no guarding or rigidity. SPINE: No scoliosis or deformity SKIN: No rashes CENTRAL NERVOUS SYSTEM: No focal deficits, tone is normal in all 4 extremities. Extremities: There is trace peripheral edema. No clubbing, no cyanosis. Peripheral pulses are intact. Results - Laboratory Findings CBC and BMP: 12/09/16 04:05 12/09/16 04:05 ABG ABG pH 7.35 (7.35-7.45) 12/09/16 04:12 ABG pCO2 34 mmHg (35-45) L 12/09/16 04:12 ABG pO2 110 mmHg (83-108) H 12/09/16 04:12 ABG O2 Saturation 98.0 % (94-97) H 12/09/16 04:12 PT/INR, D-dimer PT 11.8 sec (9.0-12.0) 12/09/16 04:05 INR 1.2 (<1.1) 12/09/16 04:05 Abnormal lab findings: Abnormal Labs 12/03/16 12/08/16 12/08/16 09:01 06:14 08:42 RBC Hgb Hct MCHC Plt Count Neutrophils # Lymphocytes # PT APTT ABG pH ABG pCO2 ABG pO2 ABG HCO3 ABG Total CO2 ABG O2 Saturation ABG Hematocrit ABG Potassium Potassium Carbon Dioxide BUN Glucose POC Glucose (mg/dL) 142 H 114 H Calcium AST Alkaline Phosphatase Total Protein Albumin Arterial Blood Potassium Crossmatch See Detail 12/08/16 12/08/16 12/08/16 08:42 11:01 11:02 RBC Hgb Hct MCHC Plt Count Neutrophils # Lymphocytes # PT APTT ABG pH ABG pCO2 33 L ABG pO2 186 H 285 H ABG HCO3 ABG Total CO2 ABG O2 Saturation 99.7 H 99.9 H ABG Hematocrit 33 L 25 L ABG Potassium Potassium Carbon Dioxide BUN Glucose POC Glucose (mg/dL) 136 H Calcium AST Alkaline Phosphatase Total Protein Albumin Arterial Blood Potassium Crossmatch 12/08/16 12/08/16 12/08/16 11:38 11:38 12:21 RBC Hgb Hct MCHC Plt Count Neutrophils # Lymphocytes # PT APTT ABG pH 7.48 H ABG pCO2 31 L ABG pO2 280 H ABG HCO3 ABG Total CO2 ABG O2 Saturation 99.9 H ABG Hematocrit 23 L ABG Potassium Potassium Carbon Dioxide BUN Glucose POC Glucose (mg/dL) 144 H 149 H Calcium AST Alkaline Phosphatase Total Protein Albumin Arterial Blood Potassium Crossmatch 12/08/16 12/08/16 12/08/16 12:22 13:19 13:19 RBC Hgb Hct MCHC Plt Count Neutrophils # Lymphocytes # PT APTT ABG pH ABG pCO2 ABG pO2 359 H 219 H ABG HCO3 ABG Total CO2 25 H 25 H ABG O2 Saturation 100.0 H 99.8 H ABG Hematocrit 22 L 20 L* ABG Potassium 5.2 H Potassium Carbon Dioxide BUN Glucose POC Glucose (mg/dL) 300 H Calcium AST Alkaline Phosphatase Total Protein Albumin Arterial Blood Potassium 5.2 H Crossmatch 12/08/16 12/08/16 12/08/16 13:56 13:57 14:54 RBC Hgb Hct MCHC Plt Count Neutrophils # Lymphocytes # PT APTT ABG pH 7.34 L ABG pCO2 ABG pO2 321 H ABG HCO3 ABG Total CO2 25 H ABG O2 Saturation 99.9 H ABG Hematocrit 22 L ABG Potassium 4.9 H Potassium Carbon Dioxide BUN Glucose POC Glucose (mg/dL) 281 H 235 H Calcium AST Alkaline Phosphatase Total Protein Albumin Arterial Blood Potassium 4.9 H Crossmatch 12/08/16 12/08/16 12/08/16 14:54 16:00 16:04 RBC 1.90 L Hgb 6.2 L* D Hct 17.4 L* MCHC Plt Count 88 L D Neutrophils # Lymphocytes # 0.9 L PT APTT ABG pH ABG pCO2 ABG pO2 172 H ABG HCO3 ABG Total CO2 ABG O2 Saturation 99.5 H ABG Hematocrit 23 L ABG Potassium Potassium Carbon Dioxide BUN Glucose POC Glucose (mg/dL) 170 H Calcium AST Alkaline Phosphatase Total Protein Albumin Arterial Blood Potassium Crossmatch 12/08/16 12/08/16 12/08/16 16:04 16:04 16:25 RBC Hgb Hct MCHC Plt Count Neutrophils # Lymphocytes # PT 12.4 H APTT ABG pH 7.28 L ABG pCO2 55 H ABG pO2 344 H ABG HCO3 ABG Total CO2 27 H ABG O2 Saturation 99.9 H ABG Hematocrit ABG Potassium Potassium Carbon Dioxide BUN 19 H Glucose 165 H POC Glucose (mg/dL) Calcium 7.4 L AST Alkaline Phosphatase 35 L Total Protein 5.0 L Albumin 3.2 L Arterial Blood Potassium Crossmatch 12/08/16 12/08/16 12/08/16 17:01 17:25 18:09 RBC Hgb Hct MCHC Plt Count Neutrophils # Lymphocytes # PT APTT ABG pH ABG pCO2 33 L ABG pO2 79 L ABG HCO3 ABG Total CO2 ABG O2 Saturation ABG Hematocrit ABG Potassium Potassium Carbon Dioxide BUN Glucose POC Glucose (mg/dL) 156 H 144 H Calcium AST Alkaline Phosphatase Total Protein Albumin Arterial Blood Potassium Crossmatch 12/08/16 12/08/16 12/08/16 18:55 18:59 20:13 RBC 1.81 L Hgb 6.1 L* Hct 16.2 L* MCHC 37.6 H Plt Count 97 L Neutrophils # Lymphocytes # 0.9 L PT APTT ABG pH ABG pCO2 ABG pO2 ABG HCO3 ABG Total CO2 ABG O2 Saturation ABG Hematocrit ABG Potassium Potassium Carbon Dioxide BUN Glucose POC Glucose (mg/dL) 134 H 157 H Calcium AST Alkaline Phosphatase Total Protein Albumin Arterial Blood Potassium Crossmatch 12/08/16 12/08/16 12/08/16 21:26 22:05 22:05 RBC 2.61 L Hgb 8.3 L D Hct 22.5 L MCHC Plt Count 101 L Neutrophils # Lymphocytes # 0.6 L PT APTT ABG pH ABG pCO2 ABG pO2 ABG HCO3 ABG Total CO2 ABG O2 Saturation ABG Hematocrit ABG Potassium Potassium Carbon Dioxide BUN 19 H Glucose 155 H POC Glucose (mg/dL) 166 H Calcium 8.2 L AST Alkaline Phosphatase Total Protein Albumin Arterial Blood Potassium Crossmatch 12/08/16 12/08/16 12/09/16 22:07 23:14 00:13 RBC Hgb Hct MCHC Plt Count Neutrophils # Lymphocytes # PT APTT ABG pH ABG pCO2 ABG pO2 ABG HCO3 ABG Total CO2 ABG O2 Saturation ABG Hematocrit ABG Potassium Potassium Carbon Dioxide BUN Glucose POC Glucose (mg/dL) 164 H 156 H 159 H Calcium AST Alkaline Phosphatase Total Protein Albumin Arterial Blood Potassium Crossmatch 12/09/16 12/09/16 12/09/16 01:04 02:11 03:15 RBC Hgb Hct MCHC Plt Count Neutrophils # Lymphocytes # PT APTT ABG pH ABG pCO2 ABG pO2 ABG HCO3 ABG Total CO2 ABG O2 Saturation ABG Hematocrit ABG Potassium Potassium Carbon Dioxide BUN Glucose POC Glucose (mg/dL) 153 H 151 H 155 H Calcium AST Alkaline Phosphatase Total Protein Albumin Arterial Blood Potassium Crossmatch 12/09/16 12/09/16 12/09/16 04:05 04:05 04:05 RBC 2.67 L Hgb 8.5 L Hct 23.4 L MCHC Plt Count 104 L Neutrophils # 8.9 H Lymphocytes # 0.5 L PT APTT 30.7 H ABG pH ABG pCO2 ABG pO2 ABG HCO3 ABG Total CO2 ABG O2 Saturation ABG Hematocrit ABG Potassium Potassium 3.4 L Carbon Dioxide 19 L BUN 20 H Glucose 139 H POC Glucose (mg/dL) Calcium 8.0 L AST 43 H Alkaline Phosphatase Total Protein 5.3 L Albumin Arterial Blood Potassium Crossmatch 12/09/16 12/09/16 12/09/16 04:06 04:12 05:23 RBC Hgb Hct MCHC Plt Count Neutrophils # Lymphocytes # PT APTT ABG pH ABG pCO2 34 L ABG pO2 110 H ABG HCO3 18 L ABG Total CO2 ABG O2 Saturation 98.0 H ABG Hematocrit ABG Potassium Potassium Carbon Dioxide BUN Glucose POC Glucose (mg/dL) 148 H 136 H Calcium AST Alkaline Phosphatase Total Protein Albumin Arterial Blood Potassium Crossmatch 12/09/16 12/09/16 12/09/16 06:09 07:00 08:06 RBC Hgb Hct MCHC Plt Count Neutrophils # Lymphocytes # PT APTT ABG pH ABG pCO2 ABG pO2 ABG HCO3 ABG Total CO2 ABG O2 Saturation ABG Hematocrit ABG Potassium Potassium Carbon Dioxide BUN Glucose POC Glucose (mg/dL) 126 H 142 H 105 H Calcium AST Alkaline Phosphatase Total Protein Albumin Arterial Blood Potassium Crossmatch 12/09/16 12/09/16 08:58 09:58 RBC Hgb Hct MCHC Plt Count Neutrophils # Lymphocytes # PT APTT ABG pH ABG pCO2 ABG pO2 ABG HCO3 ABG Total CO2 ABG O2 Saturation ABG Hematocrit ABG Potassium Potassium Carbon Dioxide BUN Glucose POC Glucose (mg/dL) 103 H 133 H Calcium AST Alkaline Phosphatase Total Protein Albumin Arterial Blood Potassium Crossmatch - Diagnostic Findings Chest x-ray: image reviewed Assessment and Plan Plan: Impression: #1 Coronary artery disease status post coronary artery bypass grafting utilizing the OZUNA to the LAD, reverse saphenous vein grafts to the obtuse marginal and PDA. Postoperative day #1. #2 Postoperative mechanical ventilatory support is an expected outcome. Successfully extubated to 5 L/m per nasal cannula. #3 Postoperative atelectasis as an expected surgical outcome. #4 Hyperlipidemia. #5 Hypertension. #6 Diabetes mellitus. #7 Hypothyroidism area #8 Previous history of chronic tobacco dependence. Plan: The patient was seen and evaluated by Dr. Rasmussen. Her chest x-ray ABGs and labs were reviewed. He did okay for the extubation approximate 4:30 this morning. She is tolerating it quite well. We'll continue with bronchodilators 4 times a day and when necessary. We have also encouraged increased use of the incentive spirometer and cough and deep breathing exercises. We'll repeat her chest x- ray in the a.m. Will increase her activity as tolerated. She remains on heparin subcutaneous for DVT prophylaxis. We'll continue to follow. Time with Patient: Greater than 30
[2016-12-09 11:59] LABS: Magnesium 2.5 mg/dL (1.6-2.3); Potassium 3.7 mmol/L (3.5-5.1)
[2016-12-09 12:00] LABS: Glucose,Whole Blood 105 mg/dL (75-99)
[2016-12-09] MEDS ORDERED: POTASSIUM CHLORIDE ER 20 MEQ TAB.ER PO SCH (13:00)
[2016-12-09 13:05] LABS: Glucose,Whole Blood 109 mg/dL (75-99)
--- NOTE | 2016-12-09 14:07 | OP ---
DATE OF SURGERY: 12/08/2016 SURGEON: Dr. Moreno DITCHER: Kaylen Tovar and JED Kinsey ANESTHESIOLOGIST: Dr. Mason PREOPERATIVE DIAGNOSES: 1. Triple vessel coronary artery disease. 2. Preserved systolic function. 3. Left ventricular hypertrophy. 4. Diabetes. 5. Hypertension. 6. Hyperlipidemia. 7. Obesity. 8. Hypothyroidism. POSTOPERATIVE DIAGNOSES: 1. Triple vessel coronary artery disease. 2. Preserved systolic function. 3. Left ventricular hypertrophy. 4. Diabetes. 5. Hypertension. 6. Hyperlipidemia. 7. Obesity. 8. Hypothyroidism. 9. Diffuse coronary artery disease. PROCEDURE: 1. Triple vessel coronary artery bypass grafting using the left internal artery mammary to the left anterior descending artery, reverse saphenous vein graft from the aorta to the obtuse marginal artery, reverse saphenous vein graft from the aorta to the posterior descending artery. 2. Endoscopic harvesting of the left greater saphenous vein. 3. Intraoperative transesophageal echocardiogram and epiaortic scanning. 4. Intraoperative graft flow measurements using the Learning Hyperdrive System. INDICATIONS FOR SURGERY: The patient is a 61-year-old lady with metabolic syndrome who had positive stress test. Cardiac catheterization showed diffuse triple vessel coronary artery disease. She is brought in today for elective coronary artery bypass grafting. Risks, benefits and alternatives were discussed with her. She understood and agreed to proceed. DESCRIPTION OF THE PROCEDURE: Patient had a right internal jugular [place]-Tyrone catheter and a right radial arterial line placed in the preoperative holding area. She had normal PA pressure and good cardiac index. Subsequently she was brought to the operating room where general endotracheal anesthesia was induced uneventfully. Patient received 2 grams of Cephazolin intravenously preoperatively. A Chávez catheter was inserted. The chest, abdomen and both lower extremities were prepped and draped using ChloraPrep. Ioban was used to cover the skin. Transesophageal echocardiogram confirmed the preoperative finding of preserved systolic function, left ventricular hypertrophy, mild mitral valve regurgitation. Midline sternotomy was performed. Patient had thick subcutaneous fat layer. the bone was mildly osteopenic. The left claudio-sternum was elevated and the left internal mammary artery was harvested in a semi-skeletonized fashion. The left pleura was opened in this process and was drained with 28 [place]an chest tube. The right pleura remained grossly intact. In the same setting, the left greater saphenous vein was harvested endoscopically from groin to above ankle level. All the branches were tied. The leg incisions were closed over a drain. The vein appeared to be of good quality around 40 mm in diameter. The vein harvesting was done after administration of 2500 units of heparin. Subsequently, systemic heparinization was achieved and after placement of respective pledgeted pursestring, aortic cannulation with 21 [place] soft flow cannula. Venous cannulation with dual stage cannula via the right atrial appendage was performed. Antegrade cardioplegia catheters were placed. I placed a pursestring that was pledgeted on the free wall of the right atrium for insertion of retrograde catheter. However, I was not able to negotiate probably a valve at the ostium of the coronary sinus even using a smaller retrograde cannula. So despite multiple attempts I decided to abort it. The mammary artery was double clipped and transected and had an excellent pulsatile flow in it. One was around 1.75 mm in diameter. The vein is above mentioned was of good quality around 4 to 5 mm in diameter. Cardiopulmonary bypass was initiated at this point and with the heart warm empty and beating, we looked at potential coronary targets. The LAD was intra- epicardial deep in the fat and was found in its mid third in a reasonable soft spot though it was diffusely diseased. The diagonal artery by the time it was identified was small, non-bypassable and diffusely diseased. We looked at the lateral wall and could identify the three branching of the obtuse marginal artery and the middle branching was the site for bypass. That was on the smaller side and also diffusely diseased. Inferior wall was explored and the proximal posterior descending artery was identified and would be the site for bypass. During aortic clamping myocardial protection was achieved with initial dose of around 1 L of antegrade cold cardioplegia. All subsequent doses were given antegrade at 15 minutes interval. Patient's temperature was allowed to drift down to 34 degrees celsius. The first anastomosis between the segment of reversed saphenous vein and 1.25 mm posterior descending artery which had eccentric plaque in it using Prolene 7- 0 in continuous fashion. I used a 1 mm shunt to better identify the artery and that was removed before the last stitch. There was good flow into the vein and it was hemostatic. It was measured to length and cut and suspended. The second distal anastomosis between another segment of reverse saphenous vein graft and the middle branching of the obtuse marginal artery which was opened was around 1.25 mm in diameter. Also I used a 1 mm shunt to better define it using Prolene 7-0 in continuous fashion. The shunt was removed before completing the anastomosis. There was good flow in it and it was hemostatic. The vein was measured to length, cut and suspended. The third and last distal anastomosis was between the left internal mammary artery and the mid left anterior descending artery which was opened was around 1.5 mm in diameter on a diffusely diseased vessel and anastomosis was completed using Prolene 7-0 in continuous fashion. That anastomosis was hemostatic. The pedicle was affixed to the epicardium with 1 Prolene 6-0 suture. Rewarming was started at this point and we punched out two buttons of 5 mm each from the proximal aspect of the ascending aorta. The two vein proximal anastomoses were fashioned using Prolene 6-0 in continuous fashion. The patient was given Lidocaine and magnesium. Deairing maneuver was performed. Flow was reestablished into the mammary artery. Subsequently the aorta was unclamped. Both veins were deaired before reestablishing flow in them. Patient regained spontaneous junctional rhythm. Two monopolar atrial pacing wires were affixed to the right atrial appendage. One bipolar ventricular pacing wire was driven via the inferior aspect of the right ventricle. Two substernal chest tubes were placed. A groove was made in the left pleura pericardial fat to accommodate the mammary artery medial to the lung and away from the posterior sternal table. After a period of reperfusion, we were able to wean off coronary artery bypass without support. All anastomoses were hemostatic. Graft flow measurement revealed excellent parameters. The flow into the vein graft going to the posterior descending artery was 30 mL/min with pulsatility of 4.8. The flow into the vein graft going to the obtuse marginal artery was 48 mL/min with pulsatility of 4.7. The flow into the left internal mammary artery was 41 mL/ min with PI that was slightly high in view of competitive flow. The graft test was done and Protamine was given. Decannulation proceeded. The aortic cannulation site required reinforcement with pledgeted 4-0. There was paucity of pericardial fat to close over the heart. After ensuring adequate hemostasis and hemodynamics, correct sponge, instrument and needle count, the sternum was approximated using several figure of eight Whitney cable after interposing Fiber wire between the sternal edges. Thorough irrigation with cephazolin followed. The rest of the closure proceeded in layers. Skin clips were applied. Patient did not receive any blood bank but received 270 mL of Cell Saver blood. She was transferred to the ICU in excellent hemodynamic condition and atrially paced at 80 with good conduction. Mean arterial pressure 65. PA pressure of 31/ 14. Cardiac index at 2.7. MTDD
[2016-12-09 14:26] LABS: Glucose,Whole Blood 126 mg/dL (75-99)
--- NOTE | 2016-12-09 14:42 | P.PN ---
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 Patient ended up having heart catheter [address] Mathis result were positive with multiple vessel disease. Patient was seen in cardiothoracic surgeon and scheduled for elective [place] vessel bypass surgery in today 12/08/2016. Surgery went successfully patient is on mechanical ventilation had the 3 chest tube sedated currently require minimum vasopressor on insulin drip she is admitted to the ICU. She has slight the drop in hemoglobin post surgery with hemoglobin down 6.2 and low platelet count of 80,000. Patient was extubated this morning doing very well sitting in recliner her family around she still and slight the pain having mild shortness of breath but able to tolerate nasal cannula with pulse ox running about 92 percentile. Her platelet count are significantly better than yesterday and no further drop in hemoglobin since yesterday hemoglobin is up to 8.5 today. Objective - Vital Signs Vital signs: Vital Signs Temp 98.1 F 12/08/16 20:45 Pulse 68 12/09/16 14:30 Resp 12 12/09/16 14:30 BP 106/49 12/09/16 09:30 Pulse Ox 96 12/09/16 14:30 Intake & Output 12/08/16 12/09/16 12/09/16 18:59 06:59 18:59 Intake Total 312.347 6911.835 994.261 Output Total 2872 1356 578 Balance -2667.526 1088.835 416.261 Weight 103.4 kg 103.4 kg Intake: IV 200 1429 809 0.9 NaCl- for Pressure 99 9 Bag ACETAMINOPHEN IV (For NPO 200 100 ) 1,000 mg In Empty Bag 1 bag @ 400 mls/hr IVPB Q6HR RANJITH Rx#:[id number] CO/CI injection fluid 230 Lactated Ringers 1,000 ml 100 600 300 @ 20 mls/hr IV .Q24H RANJITH Rx#:[id number] Magnesium Sulfate 10 mEq/ 200 100ml Potassium Chloride 10 mEq 200 200 /100ml ceFAZolin 2 gm In Sodium 100 100 Chloride 0.9% 100 ml @ 100 mls/hr IVPB Q8HR RANJITH Rx#:[id number] Intake, IV Titration 4.474 295.835 185.261 Amount Clevidipine Butyrate 25 3.466 178.400 50.667 mg In Empty Bag 1 bag @ 1 MG/HR 2 mls/hr IV .Q24H RANJITH Rx#:[id number] Insulin Regular 100 unit 1.008 65.236 34.594 In Sodium Chloride 0.9% 100 ml @ Per Protocol IV .Q0M RANJITH Rx#:[id number] Lactated Ringers 1,000 ml 100 @ 20 mls/hr IV .Q24H RANJITH Rx#:[id number] Propofol 500 mg In Empty 52.199 Bag 1 bag @ Titrate IV . Q0M RANJITH Rx#:[id number] Blood Product 620 Rc As-3 Unit 310 [id number] Other 100 Rc As-3 Unit 100 [id number] Output: Chest Tube Drainage 85 226 173 Chest Tube Left Lateral 34 47 83 Chest Chest Tube Right Pleural/ 51 179 90 Mediastinal Gastric Drainage 180 Drainage 25 Left Rodriguez 25 Urine 987 725 280 Emesis 200 125 Estimated Blood Loss 1800 Other: Voiding Method Indwelling Catheter Indwelling Catheter Indwelling Catheter # Emeses 1 ABP, PAP, CO, CI - Last Documented Arterial Blood Pressure 131/42 Pulmonary Artery Pressure 36/18 Cardiac Output 4.8 Cardiac Index 2.4 - Constitutional General appearance: Present: cooperative, no acute distress, obese. Absent: average body habitus, disheveled, mild distress, morbidly obese, severe distress , thin - EENT Eyes: Present: normal appearance. Absent: abnormal pupil, anicteric sclerae, disc margins sharp, edentulous, EOMI, PERRLA, fundus normal, photophobia, dentition normal, poor dentition, ptosis, scleral icterus ENT: Present: hard of hearing, normal oropharynx. Absent: hearing grossly normal, NA/AT, other, pharyngeal erythema, thrush, tonsillar exudates, tonsillar swelling Ears: bilateral: normal - Neck Neck: Present: normal ROM. Absent: lymphadenopathy, other, rigidity, stridor, thyromegaly Carotids: bilateral: upstroke normal Thyroid: bilateral: normal size - Respiratory Respiratory: bilateral: CTA, diminished, dullness - Cardiovascular Rhythm: regular Heart sounds: normal: S1, S2 Abnormal Heart Sounds: Present: systolic murmur, S3 Gallop - Gastrointestinal General gastrointestinal: Present: decreased bowel sounds, scaphoid. Absent: absent bowel sounds, distended, hepatomegaly, hyperactive bowel sounds, normal bowel sounds, organomegaly, rigid, soft, splenomegaly, tenderness, umbilical hernia, ventral hernia - Integumentary Integumentary: Present: normal, pale, rash. Absent: calor, cellulitis, cyanotic , decreased turgor, flushed, jaundiced, normal turgor, ulcer - Neurologic Neurologic: Present: CNII-XII intact - Musculoskeletal Musculoskeletal: Present: generalized weakness, strength equal bilaterally. Absent: gait normal, right sided weakness, left sided weakness - Psychiatric Psychiatric: Present: A&O x's 3, appropriate affect - Labs CBC & Chem 7: 12/09/16 04:05 12/09/16 11:26 Labs: Abnormal Lab Results - Last 24 Hours (Table) 12/03/16 12/08/16 12/08/16 Range/Units 09:01 08:42 11:02 RBC (3.80-5.40) m/uL Hgb (11.4-16.0) gm/dL Hct (34.0-46.0) % MCHC (31.0-37.0) g/dL Plt Count (150-450) k/uL Neutrophils # (1.3-7.7) k/uL Lymphocytes # (1.0-4.8) k/uL PT (9.0-12.0) sec APTT (22.0-30.0) sec ABG pH (7.35-7.45) ABG pCO2 33 L (35-45) mmHg ABG pO2 186 H 285 H (83-108) mmHg ABG HCO3 (21-25) mmol/L ABG Total CO2 (19-24) mmol/L ABG O2 Saturation 99.7 H 99.9 H (94-97) % ABG Hematocrit 33 L 25 L (34.0-46.0) % ABG Potassium (3.4-4.5) mmol/L Potassium (3.5-5.1) mmol/L Carbon Dioxide (22-30) mmol/L BUN (7-17) mg/dL Glucose (74-99) mg/dL POC Glucose (mg/dL) (75-99) mg/dL Calcium (8.4-10.2) mg/dL Magnesium (1.6-2.3) mg/dL AST (14-36) U/L Alkaline Phosphatase (38-126) U/L Total Protein (6.3-8.2) g/dL Albumin (3.5-5.0) g/dL Arterial Blood Potassium (3.4-4.5) mmol/L Crossmatch See Detail 12/08/16 12/08/16 12/08/16 Range/Units 11:38 12:22 13:19 RBC (3.80-5.40) m/uL Hgb (11.4-16.0) gm/dL Hct (34.0-46.0) % MCHC (31.0-37.0) g/dL Plt Count (150-450) k/uL Neutrophils # (1.3-7.7) k/uL Lymphocytes # (1.0-4.8) k/uL PT (9.0-12.0) sec APTT (22.0-30.0) sec ABG pH 7.48 H (7.35-7.45) ABG pCO2 31 L (35-45) mmHg ABG pO2 280 H 359 H 219 H (83-108) mmHg ABG HCO3 (21-25) mmol/L ABG Total CO2 25 H 25 H (19-24) mmol/L ABG O2 Saturation 99.9 H 100.0 H 99.8 H (94-97) % ABG Hematocrit 23 L 22 L 20 L* (34.0-46.0) % ABG Potassium 5.2 H (3.4-4.5) mmol/L Potassium (3.5-5.1) mmol/L Carbon Dioxide (22-30) mmol/L BUN (7-17) mg/dL Glucose (74-99) mg/dL POC Glucose (mg/dL) (75-99) mg/dL Calcium (8.4-10.2) mg/dL Magnesium (1.6-2.3) mg/dL AST (14-36) U/L Alkaline Phosphatase (38-126) U/L Total Protein (6.3-8.2) g/dL Albumin (3.5-5.0) g/dL Arterial Blood Potassium 5.2 H (3.4-4.5) mmol/L Crossmatch 12/08/16 12/08/16 12/08/16 Range/Units 13:57 14:54 14:54 RBC (3.80-5.40) m/uL Hgb (11.4-16.0) gm/dL Hct (34.0-46.0) % MCHC (31.0-37.0) g/dL Plt Count (150-450) k/uL Neutrophils # (1.3-7.7) k/uL Lymphocytes # (1.0-4.8) k/uL PT (9.0-12.0) sec APTT (22.0-30.0) sec ABG pH 7.34 L (7.35-7.45) ABG pCO2 (35-45) mmHg ABG pO2 321 H 172 H (83-108) mmHg ABG HCO3 (21-25) mmol/L ABG Total CO2 25 H (19-24) mmol/L ABG O2 Saturation 99.9 H 99.5 H (94-97) % ABG Hematocrit 22 L 23 L (34.0-46.0) % ABG Potassium 4.9 H (3.4-4.5) mmol/L Potassium (3.5-5.1) mmol/L Carbon Dioxide (22-30) mmol/L BUN (7-17) mg/dL Glucose (74-99) mg/dL POC Glucose (mg/dL) 235 H (75-99) mg/dL Calcium (8.4-10.2) mg/dL Magnesium (1.6-2.3) mg/dL AST (14-36) U/L Alkaline Phosphatase (38-126) U/L Total Protein (6.3-8.2) g/dL Albumin (3.5-5.0) g/dL Arterial Blood Potassium 4.9 H (3.4-4.5) mmol/L Crossmatch 12/08/16 12/08/16 12/08/16 Range/Units 16:00 16:04 16:04 RBC 1.90 L (3.80-5.40) m/uL Hgb 6.2 L* D (11.4-16.0) gm/dL Hct 17.4 L* (34.0-46.0) % MCHC (31.0-37.0) g/dL Plt Count 88 L D (150-450) k/uL Neutrophils # (1.3-7.7) k/uL Lymphocytes # 0.9 L (1.0-4.8) k/uL PT (9.0-12.0) sec APTT (22.0-30.0) sec ABG pH (7.35-7.45) ABG pCO2 (35-45) mmHg ABG pO2 (83-108) mmHg ABG HCO3 (21-25) mmol/L ABG Total CO2 (19-24) mmol/L ABG O2 Saturation (94-97) % ABG Hematocrit (34.0-46.0) % ABG Potassium (3.4-4.5) mmol/L Potassium (3.5-5.1) mmol/L Carbon Dioxide (22-30) mmol/L BUN 19 H (7-17) mg/dL Glucose 165 H (74-99) mg/dL POC Glucose (mg/dL) 170 H (75-99) mg/dL Calcium 7.4 L (8.4-10.2) mg/dL Magnesium (1.6-2.3) mg/dL AST (14-36) U/L Alkaline Phosphatase 35 L (38-126) U/L Total Protein 5.0 L (6.3-8.2) g/dL Albumin 3.2 L (3.5-5.0) g/dL Arterial Blood Potassium (3.4-4.5) mmol/L Crossmatch 12/08/16 12/08/16 12/08/16 Range/Units 16:04 16:25 17:01 RBC (3.80-5.40) m/uL Hgb (11.4-16.0) gm/dL Hct (34.0-46.0) % MCHC (31.0-37.0) g/dL Plt Count (150-450) k/uL Neutrophils # (1.3-7.7) k/uL Lymphocytes # (1.0-4.8) k/uL PT 12.4 H (9.0-12.0) sec APTT (22.0-30.0) sec ABG pH 7.28 L (7.35-7.45) ABG pCO2 55 H (35-45) mmHg ABG pO2 344 H (83-108) mmHg ABG HCO3 (21-25) mmol/L ABG Total CO2 27 H (19-24) mmol/L ABG O2 Saturation 99.9 H (94-97) % ABG Hematocrit (34.0-46.0) % ABG Potassium (3.4-4.5) mmol/L Potassium (3.5-5.1) mmol/L Carbon Dioxide (22-30) mmol/L BUN (7-17) mg/dL Glucose (74-99) mg/dL POC Glucose (mg/dL) 156 H (75-99) mg/dL Calcium (8.4-10.2) mg/dL Magnesium (1.6-2.3) mg/dL AST (14-36) U/L Alkaline Phosphatase (38-126) U/L Total Protein (6.3-8.2) g/dL Albumin (3.5-5.0) g/dL Arterial Blood Potassium (3.4-4.5) mmol/L Crossmatch 12/08/16 12/08/16 12/08/16 Range/Units 17:25 18:09 18:55 RBC 1.81 L (3.80-5.40) m/uL Hgb 6.1 L* (11.4-16.0) gm/dL Hct 16.2 L* (34.0-46.0) % MCHC 37.6 H (31.0-37.0) g/dL Plt Count 97 L (150-450) k/uL Neutrophils # (1.3-7.7) k/uL Lymphocytes # 0.9 L (1.0-4.8) k/uL PT (9.0-12.0) sec APTT (22.0-30.0) sec ABG pH (7.35-7.45) ABG pCO2 33 L (35-45) mmHg ABG pO2 79 L (83-108) mmHg ABG HCO3 (21-25) mmol/L ABG Total CO2 (19-24) mmol/L ABG O2 Saturation (94-97) % ABG Hematocrit (34.0-46.0) % ABG Potassium (3.4-4.5) mmol/L Potassium (3.5-5.1) mmol/L Carbon Dioxide (22-30) mmol/L BUN (7-17) mg/dL Glucose (74-99) mg/dL POC Glucose (mg/dL) 144 H (75-99) mg/dL Calcium (8.4-10.2) mg/dL Magnesium (1.6-2.3) mg/dL AST (14-36) U/L Alkaline Phosphatase (38-126) U/L Total Protein (6.3-8.2) g/dL Albumin (3.5-5.0) g/dL Arterial Blood Potassium (3.4-4.5) mmol/L Crossmatch 12/08/16 12/08/16 12/08/16 Range/Units 18:59 20:13 21:26 RBC (3.80-5.40) m/uL Hgb (11.4-16.0) gm/dL Hct (34.0-46.0) % MCHC (31.0-37.0) g/dL Plt Count (150-450) k/uL Neutrophils # (1.3-7.7) k/uL Lymphocytes # (1.0-4.8) k/uL PT (9.0-12.0) sec APTT (22.0-30.0) sec ABG pH (7.35-7.45) ABG pCO2 (35-45) mmHg ABG pO2 (83-108) mmHg ABG HCO3 (21-25) mmol/L ABG Total CO2 (19-24) mmol/L ABG O2 Saturation (94-97) % ABG Hematocrit (34.0-46.0) % ABG Potassium (3.4-4.5) mmol/L Potassium (3.5-5.1) mmol/L Carbon Dioxide (22-30) mmol/L BUN (7-17) mg/dL Glucose (74-99) mg/dL POC Glucose (mg/dL) 134 H 157 H 166 H (75-99) mg/dL Calcium (8.4-10.2) mg/dL Magnesium (1.6-2.3) mg/dL AST (14-36) U/L Alkaline Phosphatase (38-126) U/L Total Protein (6.3-8.2) g/dL Albumin (3.5-5.0) g/dL Arterial Blood Potassium (3.4-4.5) mmol/L Crossmatch 12/08/16 12/08/16 12/08/16 Range/Units 22:05 22:05 22:07 RBC 2.61 L (3.80-5.40) m/uL Hgb 8.3 L D (11.4-16.0) gm/dL Hct 22.5 L (34.0-46.0) % MCHC (31.0-37.0) g/dL Plt Count 101 L (150-450) k/uL Neutrophils # (1.3-7.7) k/uL Lymphocytes # 0.6 L (1.0-4.8) k/uL PT (9.0-12.0) sec APTT (22.0-30.0) sec ABG pH (7.35-7.45) ABG pCO2 (35-45) mmHg ABG pO2 (83-108) mmHg ABG HCO3 (21-25) mmol/L ABG Total CO2 (19-24) mmol/L ABG O2 Saturation (94-97) % ABG Hematocrit (34.0-46.0) % ABG Potassium (3.4-4.5) mmol/L Potassium (3.5-5.1) mmol/L Carbon Dioxide (22-30) mmol/L BUN 19 H (7-17) mg/dL Glucose 155 H (74-99) mg/dL POC Glucose (mg/dL) 164 H (75-99) mg/dL Calcium 8.2 L (8.4-10.2) mg/dL Magnesium (1.6-2.3) mg/dL AST (14-36) U/L Alkaline Phosphatase (38-126) U/L Total Protein (6.3-8.2) g/dL Albumin (3.5-5.0) g/dL Arterial Blood Potassium (3.4-4.5) mmol/L Crossmatch 12/08/16 12/09/16 12/09/16 Range/Units 23:14 00:13 01:04 RBC (3.80-5.40) m/uL Hgb (11.4-16.0) gm/dL Hct (34.0-46.0) % MCHC (31.0-37.0) g/dL Plt Count (150-450) k/uL Neutrophils # (1.3-7.7) k/uL Lymphocytes # (1.0-4.8) k/uL PT (9.0-12.0) sec APTT (22.0-30.0) sec ABG pH (7.35-7.45) ABG pCO2 (35-45) mmHg ABG pO2 (83-108) mmHg ABG HCO3 (21-25) mmol/L ABG Total CO2 (19-24) mmol/L ABG O2 Saturation (94-97) % ABG Hematocrit (34.0-46.0) % ABG Potassium (3.4-4.5) mmol/L Potassium (3.5-5.1) mmol/L Carbon Dioxide (22-30) mmol/L BUN (7-17) mg/dL Glucose (74-99) mg/dL POC Glucose (mg/dL) 156 H 159 H 153 H (75-99) mg/dL Calcium (8.4-10.2) mg/dL Magnesium (1.6-2.3) mg/dL AST (14-36) U/L Alkaline Phosphatase (38-126) U/L Total Protein (6.3-8.2) g/dL Albumin (3.5-5.0) g/dL Arterial Blood Potassium (3.4-4.5) mmol/L Crossmatch 12/09/16 12/09/16 12/09/16 Range/Units 02:11 03:15 04:05 RBC 2.67 L (3.80-5.40) m/uL Hgb 8.5 L (11.4-16.0) gm/dL Hct 23.4 L (34.0-46.0) % MCHC (31.0-37.0) g/dL Plt Count 104 L (150-450) k/uL Neutrophils # 8.9 H (1.3-7.7) k/uL Lymphocytes # 0.5 L (1.0-4.8) k/uL PT (9.0-12.0) sec APTT (22.0-30.0) sec ABG pH (7.35-7.45) ABG pCO2 (35-45) mmHg ABG pO2 (83-108) mmHg ABG HCO3 (21-25) mmol/L ABG Total CO2 (19-24) mmol/L ABG O2 Saturation (94-97) % ABG Hematocrit (34.0-46.0) % ABG Potassium (3.4-4.5) mmol/L Potassium (3.5-5.1) mmol/L Carbon Dioxide (22-30) mmol/L BUN (7-17) mg/dL Glucose (74-99) mg/dL POC Glucose (mg/dL) 151 H 155 H (75-99) mg/dL Calcium (8.4-10.2) mg/dL Magnesium (1.6-2.3) mg/dL AST (14-36) U/L Alkaline Phosphatase (38-126) U/L Total Protein (6.3-8.2) g/dL Albumin (3.5-5.0) g/dL Arterial Blood Potassium (3.4-4.5) mmol/L Crossmatch 12/09/16 12/09/16 12/09/16 Range/Units 04:05 04:05 04:06 RBC (3.80-5.40) m/uL Hgb (11.4-16.0) gm/dL Hct (34.0-46.0) % MCHC (31.0-37.0) g/dL Plt Count (150-450) k/uL Neutrophils # (1.3-7.7) k/uL Lymphocytes # (1.0-4.8) k/uL PT (9.0-12.0) sec APTT 30.7 H (22.0-30.0) sec ABG pH (7.35-7.45) ABG pCO2 (35-45) mmHg ABG pO2 (83-108) mmHg ABG HCO3 (21-25) mmol/L ABG Total CO2 (19-24) mmol/L ABG O2 Saturation (94-97) % ABG Hematocrit (34.0-46.0) % ABG Potassium (3.4-4.5) mmol/L Potassium 3.4 L (3.5-5.1) mmol/L Carbon Dioxide 19 L (22-30) mmol/L BUN 20 H (7-17) mg/dL Glucose 139 H (74-99) mg/dL POC Glucose (mg/dL) 148 H (75-99) mg/dL Calcium 8.0 L (8.4-10.2) mg/dL Magnesium (1.6-2.3) mg/dL AST 43 H (14-36) U/L Alkaline Phosphatase (38-126) U/L Total Protein 5.3 L (6.3-8.2) g/dL Albumin (3.5-5.0) g/dL Arterial Blood Potassium (3.4-4.5) mmol/L Crossmatch 12/09/16 12/09/16 12/09/16 Range/Units 04:12 05:23 06:09 RBC (3.80-5.40) m/uL Hgb (11.4-16.0) gm/dL Hct (34.0-46.0) % MCHC (31.0-37.0) g/dL Plt Count (150-450) k/uL Neutrophils # (1.3-7.7) k/uL Lymphocytes # (1.0-4.8) k/uL PT (9.0-12.0) sec APTT (22.0-30.0) sec ABG pH (7.35-7.45) ABG pCO2 34 L (35-45) mmHg ABG pO2 110 H (83-108) mmHg ABG HCO3 18 L (21-25) mmol/L ABG Total CO2 (19-24) mmol/L ABG O2 Saturation 98.0 H (94-97) % ABG Hematocrit (34.0-46.0) % ABG Potassium (3.4-4.5) mmol/L Potassium (3.5-5.1) mmol/L Carbon Dioxide (22-30) mmol/L BUN (7-17) mg/dL Glucose (74-99) mg/dL POC Glucose (mg/dL) 136 H 126 H (75-99) mg/dL Calcium (8.4-10.2) mg/dL Magnesium (1.6-2.3) mg/dL AST (14-36) U/L Alkaline Phosphatase (38-126) U/L Total Protein (6.3-8.2) g/dL Albumin (3.5-5.0) g/dL Arterial Blood Potassium (3.4-4.5) mmol/L Crossmatch 12/09/16 12/09/16 12/09/16 Range/Units 07:00 08:06 08:58 RBC (3.80-5.40) m/uL Hgb (11.4-16.0) gm/dL Hct (34.0-46.0) % MCHC (31.0-37.0) g/dL Plt Count (150-450) k/uL Neutrophils # (1.3-7.7) k/uL Lymphocytes # (1.0-4.8) k/uL PT (9.0-12.0) sec APTT (22.0-30.0) sec ABG pH (7.35-7.45) ABG pCO2 (35-45) mmHg ABG pO2 (83-108) mmHg ABG HCO3 (21-25) mmol/L ABG Total CO2 (19-24) mmol/L ABG O2 Saturation (94-97) % ABG Hematocrit (34.0-46.0) % ABG Potassium (3.4-4.5) mmol/L Potassium (3.5-5.1) mmol/L Carbon Dioxide (22-30) mmol/L BUN (7-17) mg/dL Glucose (74-99) mg/dL POC Glucose (mg/dL) 142 H 105 H 103 H (75-99) mg/dL Calcium (8.4-10.2) mg/dL Magnesium (1.6-2.3) mg/dL AST (14-36) U/L Alkaline Phosphatase (38-126) U/L Total Protein (6.3-8.2) g/dL Albumin (3.5-5.0) g/dL Arterial Blood Potassium (3.4-4.5) mmol/L Crossmatch 12/09/16 12/09/16 12/09/16 Range/Units 09:58 10:58 11:26 RBC (3.80-5.40) m/uL Hgb (11.4-16.0) gm/dL Hct (34.0-46.0) % MCHC (31.0-37.0) g/dL Plt Count (150-450) k/uL Neutrophils # (1.3-7.7) k/uL Lymphocytes # (1.0-4.8) k/uL PT (9.0-12.0) sec APTT (22.0-30.0) sec ABG pH (7.35-7.45) ABG pCO2 (35-45) mmHg ABG pO2 (83-108) mmHg ABG HCO3 (21-25) mmol/L ABG Total CO2 (19-24) mmol/L ABG O2 Saturation (94-97) % ABG Hematocrit (34.0-46.0) % ABG Potassium (3.4-4.5) mmol/L Potassium (3.5-5.1) mmol/L Carbon Dioxide (22-30) mmol/L BUN (7-17) mg/dL Glucose (74-99) mg/dL POC Glucose (mg/dL) 133 H 125 H (75-99) mg/dL Calcium (8.4-10.2) mg/dL Magnesium 2.5 H (1.6-2.3) mg/dL AST (14-36) U/L Alkaline Phosphatase (38-126) U/L Total Protein (6.3-8.2) g/dL Albumin (3.5-5.0) g/dL Arterial Blood Potassium (3.4-4.5) mmol/L Crossmatch 12/09/16 12/09/16 12/09/16 Range/Units 11:57 13:03 14:17 RBC (3.80-5.40) m/uL Hgb (11.4-16.0) gm/dL Hct (34.0-46.0) % MCHC (31.0-37.0) g/dL Plt Count (150-450) k/uL Neutrophils # (1.3-7.7) k/uL Lymphocytes # (1.0-4.8) k/uL PT (9.0-12.0) sec APTT (22.0-30.0) sec ABG pH (7.35-7.45) ABG pCO2 (35-45) mmHg ABG pO2 (83-108) mmHg ABG HCO3 (21-25) mmol/L ABG Total CO2 (19-24) mmol/L ABG O2 Saturation (94-97) % ABG Hematocrit (34.0-46.0) % ABG Potassium (3.4-4.5) mmol/L Potassium (3.5-5.1) mmol/L Carbon Dioxide (22-30) mmol/L BUN (7-17) mg/dL Glucose (74-99) mg/dL POC Glucose (mg/dL) 105 H 109 H 126 H (75-99) mg/dL Calcium (8.4-10.2) mg/dL Magnesium (1.6-2.3) mg/dL AST (14-36) U/L Alkaline Phosphatase (38-126) U/L Total Protein (6.3-8.2) g/dL Albumin (3.5-5.0) g/dL Arterial Blood Potassium (3.4-4.5) mmol/L Crossmatch Assessment and Plan Plan: 1 post three-vessel CABG: Continue post surgical care patient is off the vent 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 3 multiple vessel CAD: Post CABG so far heart function has been good before surgery. 4 type 2 diabetes on insulin: Her A1c was not that good last time she had it few weeks ago with A1c was running over 8. Patient will be on tighter insulin drip and insulin with oral agent after she leaves the ICU. Patient remain on 8 units of insulin drip currently. Was start patient back on Lantus tonight and by tomorrow morning we'll start NovoLog before meals meals along with a sliding scales along with Lantus and titrate medication. Patient was on Trulicity continue to hold it for now. 5 hyperlipidemia continue atorvastatin at higher dose. 6 hypertension: Has been on amlodipine metoprolol and lisinopril. 7 hypothyroidism we'll continue levothyroxine after surgery if she cannot take any oral meds in the next 24 hours which which the dose to half the dose through the IV. 8 chronic and recurrent folliculitis: Patient will be watch carefully after surgery for any sign of skin infection and treated very quickly. 9 anemia: No blood transfusion for the night of further drop in hemoglobin require blood transfusion. 10 GI prophylaxis: Patient will be on pantoprazole IV. 11 thrombocytopenia: We will watch the platelet count in the next 24 hours to make sure this is not related to ELIDIA. With improvement of platelet count currently diagnosis of ELIDIA is not there anymore
[2016-12-09] MEDS ORDERED: BISACODYL 10 MG SUPP RECTAL PRN (14:43)
[2016-12-09] MEDS ORDERED: MAGNESIUM HYDROXIDE 2,400 MG/10 ML CUP PO PRN (14:43)
[2016-12-09] MEDS ORDERED: IPRATROPIUM-ALBUTEROL 3 ML NEB INHALATION PRN (14:44)
[2016-12-09 15:45] LABS: Glucose,Whole Blood 102 mg/dL (75-99)
[2016-12-09 16:25] LABS: Glucose,Whole Blood 101 mg/dL (75-99)
[2016-12-09] MEDS: LACTATED RINGERS 1,000 ML IV SCH (16:33)
[2016-12-09 17:08] LABS: Glucose,Whole Blood 112 mg/dL (75-99)
[2016-12-09] MEDS ORDERED: POTASSIUM CHLORIDE ER 20 MEQ TAB.ER PO ONE (17:30)
[2016-12-09 18:09] LABS: Glucose,Whole Blood 138 mg/dL (75-99)
[2016-12-09 19:08] LABS: Glucose,Whole Blood 128 mg/dL (75-99)
[2016-12-09 20:14] LABS: Glucose,Whole Blood 105 mg/dL (75-99)
[2016-12-09] MEDS ORDERED: INSULIN GLARGINE 100 UNIT/ML 10 ML VIAL SQ SCH (21:00)
[2016-12-09 21:06] LABS: Glucose,Whole Blood 107 mg/dL (75-99)
[2016-12-09] MEDS: SENNOSIDES-DOCUSATE SODIUM 1 EACH TAB PO SCH (21:21)
[2016-12-09 22:02] LABS: Glucose,Whole Blood 122 mg/dL (75-99)
[2016-12-09 23:12] LABS: Glucose,Whole Blood 115 mg/dL (75-99)
--- NOTE | 2016-12-09 23:19 | CONS ---
This is a 61-year-old lady, a patient of Dr. Mathis, who underwent aortocoronary bypass surgery with a OZUNA to LAD, vein graft to the RCA and obtuse marginal branch of circumflex. She is being seen by me postoperatively. She has been extubated, remains hemodynamically stable, doing quite well overall. Denies any chest discomfort. She is on a small dose of antihypertensives intravenously. She is comfortable resting. Cardiac cath by Dr. Mathis revealed a 90% LAD lesion in the mid portion. Circumflex also had 2 obtuse marginal branches with a critical lesion in the mid portion. Right coronary was a dominant vessel with a 70% stenosis before bifurcation. Past medical history includes: 1. Type 2 diabetes mellitus. 2. Hypertension. 3. History of hypothyroidism, on replacement therapy. 4. Status post bariatric surgery. 5. Status post appendectomy. Medications at home include: 1. Lipitor. 2. Insulin. 3. Vitamin supplements. 4. Synthroid 50 mcg daily. 5. Lisinopril/hydrochlorothiazide. 6. Lopressor 25 mg daily. 7. Aspirin 325 mg daily. 8. Nitroglycerin. NO KNOWN ALLERGIES. On examination, blood pressure is 120/70, pulse rate 70 per minute, sinus. No JVD. S1, S2 heard normally. No rub is audible. Lungs reveal improved air entry. Abdomen and lower extremity exam unchanged. PLAN: Continue incentive spirometry, pulmonary toilet, and continue current medications. MTDD
[2016-12-10] MEDS: HYDROcodone/APAP 5-325MG 1 EACH TAB PO PRN ×3 (00:12→17:07)
[2016-12-10 00:19] LABS: Glucose,Whole Blood 89 mg/dL (75-99)
[2016-12-10] MEDS: HEPARIN SODIUM,PORCINE 5,000 UNIT/ML 1 ML VIAL SQ SCH ×3 (00:28→17:09)
[2016-12-10 01:01] LABS: Glucose,Whole Blood 101 mg/dL (75-99)
[2016-12-10 02:05] LABS: Glucose,Whole Blood 123 mg/dL (75-99)
[2016-12-10 03:11] LABS: Glucose,Whole Blood 112 mg/dL (75-99)
[2016-12-10] MEDS: CLEVIDIPINE BUTYRATE 25 MG in EMPTY BAG 1 BAG IV SCH (03:13)
[2016-12-10 03:57] LABS: Glucose,Whole Blood 125 mg/dL (75-99)
[2016-12-10 05:02] LABS: Glucose,Whole Blood 108 mg/dL (75-99)
[2016-12-10 05:16] LABS: Basophils % (A) 0 %; CH 31.4; CHCM 35.1; Eosinophils # (A) 0.1 k/uL (0-0.7); Eosinophils % (A) 1 %; HCT 22.5 % (34.0-46.0); HGB 8.1 gm/dL (11.4-16.0); Luc # (Auto) 0.15; Luc % (Auto) 1; Lymphocytes # (A) 1.2 k/uL (1.0-4.8); Lymphocytes % (A) 9 %; MCH 32.3 pg (25.0-35.0); MCHC 35.9 g/dL (31.0-37.0); Mean Platelet Volume 9.1; Monocytes # (A) 0.5 k/uL (0-1.0); Monocytes % (A) 4 %; Neutrophils # (A) 11.6 k/uL (1.3-7.7); Neutrophils % (A) 86 %; RDW 14.1 % (11.5-15.5); WBC 13.6 k/uL (3.8-10.6); WBC (Perox) 13.58
[2016-12-10 05:21] LABS: INR 1.1 (<1.1); Prothrombin Time 11.1 sec (9.0-12.0)
[2016-12-10] MEDS: LEVOTHYROXINE 50 MCG TAB PO SCH (05:34)
[2016-12-10 05:37] LABS: Ionized Calcium 4.9 mg/dL (4.5-5.3)
[2016-12-10 05:49] LABS: ALT 27 U/L (9-52); AST 29 U/L (14-36); Alkaline Phosphatase 47 U/L (38-126); Anion Gap 5 mmol/L; Blood Urea Nitrogen 24 mg/dL (7-17); Calcium 8.2 mg/dL (8.4-10.2); Carbon Dioxide 25 mmol/L (22-30); Chloride 108 mmol/L (98-107); Glucose 104 mg/dL (74-99); Magnesium 2.3 mg/dL (1.6-2.3); Non-African American GFR(MDRD) >60 (>60 ml/min/1.73 sqM); Potassium 4.5 mmol/L (3.5-5.1); Sodium 138 mmol/L (137-145); Total Bilirubin 0.4 mg/dL (0.2-1.3); Total Protein 4.8 g/dL (6.3-8.2)
[2016-12-10 06:05] LABS: Glucose,Whole Blood 129 mg/dL (75-99)
[2016-12-10] MEDS: IPRATROPIUM-ALBUTEROL 3 ML NEB INHALATION SCH ×4 (07:30→19:40)
[2016-12-10 07:40] LABS: Glucose,Whole Blood 94 mg/dL (75-99)
[2016-12-10] MEDS ORDERED: ERGOCALCIFEROL 50,000 UNIT CAP PO SCH ×2 (08:00→09:00)
[2016-12-10] MEDS ORDERED: FUROSEMIDE 10 MG/ML 2 ML VIAL IV ONE (08:00)
--- NOTE | 2016-12-10 08:26 | P.PN ---
Subjective Principal diagnosis: Severe stenotic multivessel coronary artery disease. Hypertension. Hyperlipidemia. Type 2 diabetes mellitus with hemoglobin A1c 6.8%. Family history of early coronary artery disease. Hypothyroid. Previous tobacco dependence. POD #2 elective coronary artery bypass grafting, left internal mammary artery to the left anterior descending artery, reverse saphenous vein graft to the obtuse marginal artery, reverse saphenous vein graft to the posterior descending artery, left lower extremity endoscopic vein harvesting, epi-aortic ultrasound, intraoperative transesophageal echocardiogram, graft flow measurement using the Medist[employer] system. Acute blood loss anemia postoperative, expected outcome of surgery, treated with transfusion of 1 unit packed red blood cells. Patient is currently sitting up in bed in no acute distress. States her pain is controlled on ordered medications. Objective - Vital Signs Vital signs: Vital Signs Temp 98.9 F 12/10/16 04:00 Pulse 70 12/10/16 07:56 Resp 17 12/10/16 05:00 BP 106/49 12/09/16 09:30 Pulse Ox 96 12/10/16 07:30 Intake & Output 12/09/16 12/10/16 12/10/16 18:59 06:59 18:59 Intake Total 1198.570 744.055 61.787 Output Total 1255 1062 60 Balance -56.430 -317.945 1.787 Weight 106 kg Intake: IV 1009 583 53 0.9 NaCl- for Pressure 9 33 3 Bag ACETAMINOPHEN IV (For NPO 100 ) 1,000 mg In Empty Bag 1 bag @ 400 mls/hr IVPB Q6HR RANJITH Rx#:[id number] Lactated Ringers 1,000 ml 500 550 50 @ 20 mls/hr IV .Q24H RANJITH Rx#:[id number] Magnesium Sulfate 10 mEq/ 200 100ml Potassium Chloride 10 mEq 200 /100ml Intake, IV Titration 189.570 161.055 8.787 Amount Clevidipine Butyrate 25 50.667 62.8 mg In Empty Bag 1 bag @ 1 MG/HR 2 mls/hr IV .Q24H RANJITH Rx#:[id number] Insulin Regular 100 unit 38.903 48.255 8.787 In Sodium Chloride 0.9% 100 ml @ Per Protocol IV .Q0M RANJITH Rx#:[id number] Lactated Ringers 1,000 ml 100 50 @ 20 mls/hr IV .Q24H RANJITH Rx#:[id number] Output: Chest Tube Drainage 264 630 30 Chest Tube Left Lateral 109 460 20 Chest Chest Tube Right Pleural/ 155 170 10 Mediastinal Drainage 10 Left Rodriguez 10 Urine 856 432 30 Emesis 125 Other: Voiding Method Indwelling Catheter Indwelling Catheter # Emeses 1 ABP, PAP, CO, CI - Last Documented Arterial Blood Pressure 134/58 Pulmonary Artery Pressure 36/18 Cardiac Output 4.8 Cardiac Index 2.4 - Constitutional General appearance: Present: cooperative, no acute distress, obese - Respiratory Details: Lungs sounds diminished bilaterally. Respirations even, nonlabored. Currently on 8 L high flow nasal cannula with oxygen saturation 99%. Able to achieve 750 mL on her incentive spirometry. Mediastinal chest tube to -20 cm wall suction, 100 mL drainage overnight, 250 mL in the last 24 hours. Left pleural chest tube to -20 cm wall suction, 180 mL drainage overnight, 250 mL last 24 hours. No air leaks present. - Cardiovascular Details: S1, S2 present. Regular rate and rhythm, normal sinus rhythm with first-degree AV block on telemetry. Epicardial pacemaker wires present, connected to generator, VVI with backup rate 50 bpm. Sternum stable. Heart hugger in place with patient demonstrating appropriate use. Teds/SCDs present. Right radial A- line, right internal jugular Cordis present. - Gastrointestinal Gastrointestinal Comment(s): Abdomen soft, nontender, nondistended. Active bowel sounds 4 quadrants. Tolerating diet. - Genitourinary Genitourinary Comment(s): Chávez present draining clear, yellow urine. Output 30-55 mL/h overnight. - Musculoskeletal Musculoskeletal: Present: gait normal, strength equal bilaterally - Psychiatric Psychiatric: Present: A&O x's 3, appropriate affect, intact judgment & insight - Allied health notes Allied health notes reviewed: nursing - Labs CBC & Chem 7: 12/10/16 05:00 12/10/16 05:00 Labs: Abnormal Lab Results - Last 24 Hours (Table) 12/08/16 12/08/16 12/08/16 Range/Units 08:42 11:02 11:38 WBC (3.8-10.6) k/uL RBC (3.80-5.40) m/uL Hgb (11.4-16.0) gm/dL Hct (34.0-46.0) % Plt Count (150-450) k/uL Neutrophils # (1.3-7.7) k/uL ABG pH 7.48 H (7.35-7.45) ABG pCO2 33 L 31 L (35-45) mmHg ABG pO2 186 H 285 H 280 H (83-108) mmHg ABG Total CO2 (19-24) mmol/L ABG O2 Saturation 99.7 H 99.9 H 99.9 H (94-97) % ABG Hematocrit 33 L 25 L 23 L (34.0-46.0) % ABG Potassium (3.4-4.5) mmol/L Chloride (98-107) mmol/L BUN (7-17) mg/dL Glucose (74-99) mg/dL POC Glucose (mg/dL) (75-99) mg/dL Calcium (8.4-10.2) mg/dL Magnesium (1.6-2.3) mg/dL Total Protein (6.3-8.2) g/dL Albumin (3.5-5.0) g/dL Arterial Blood Potassium (3.4-4.5) mmol/L 12/08/16 12/08/16 12/08/16 Range/Units 12:22 13:19 13:57 WBC (3.8-10.6) k/uL RBC (3.80-5.40) m/uL Hgb (11.4-16.0) gm/dL Hct (34.0-46.0) % Plt Count (150-450) k/uL Neutrophils # (1.3-7.7) k/uL ABG pH 7.34 L (7.35-7.45) ABG pCO2 (35-45) mmHg ABG pO2 359 H 219 H 321 H (83-108) mmHg ABG Total CO2 25 H 25 H 25 H (19-24) mmol/L ABG O2 Saturation 100.0 H 99.8 H 99.9 H (94-97) % ABG Hematocrit 22 L 20 L* 22 L (34.0-46.0) % ABG Potassium 5.2 H 4.9 H (3.4-4.5) mmol/L Chloride (98-107) mmol/L BUN (7-17) mg/dL Glucose (74-99) mg/dL POC Glucose (mg/dL) (75-99) mg/dL Calcium (8.4-10.2) mg/dL Magnesium (1.6-2.3) mg/dL Total Protein (6.3-8.2) g/dL Albumin (3.5-5.0) g/dL Arterial Blood Potassium 5.2 H 4.9 H (3.4-4.5) mmol/L 12/08/16 12/09/16 12/09/16 Range/Units 14:54 08:58 09:58 WBC (3.8-10.6) k/uL RBC (3.80-5.40) m/uL Hgb (11.4-16.0) gm/dL Hct (34.0-46.0) % Plt Count (150-450) k/uL Neutrophils # (1.3-7.7) k/uL ABG pH (7.35-7.45) ABG pCO2 (35-45) mmHg ABG pO2 172 H (83-108) mmHg ABG Total CO2 (19-24) mmol/L ABG O2 Saturation 99.5 H (94-97) % ABG Hematocrit 23 L (34.0-46.0) % ABG Potassium (3.4-4.5) mmol/L Chloride (98-107) mmol/L BUN (7-17) mg/dL Glucose (74-99) mg/dL POC Glucose (mg/dL) 103 H 133 H (75-99) mg/dL Calcium (8.4-10.2) mg/dL Magnesium (1.6-2.3) mg/dL Total Protein (6.3-8.2) g/dL Albumin (3.5-5.0) g/dL Arterial Blood Potassium (3.4-4.5) mmol/L 12/09/16 12/09/16 12/09/16 Range/Units 10:58 11:26 11:57 WBC (3.8-10.6) k/uL RBC (3.80-5.40) m/uL Hgb (11.4-16.0) gm/dL Hct (34.0-46.0) % Plt Count (150-450) k/uL Neutrophils # (1.3-7.7) k/uL ABG pH (7.35-7.45) ABG pCO2 (35-45) mmHg ABG pO2 (83-108) mmHg ABG Total CO2 (19-24) mmol/L ABG O2 Saturation (94-97) % ABG Hematocrit (34.0-46.0) % ABG Potassium (3.4-4.5) mmol/L Chloride (98-107) mmol/L BUN (7-17) mg/dL Glucose (74-99) mg/dL POC Glucose (mg/dL) 125 H 105 H (75-99) mg/dL Calcium (8.4-10.2) mg/dL Magnesium 2.5 H (1.6-2.3) mg/dL Total Protein (6.3-8.2) g/dL Albumin (3.5-5.0) g/dL Arterial Blood Potassium (3.4-4.5) mmol/L 12/09/16 12/09/16 12/09/16 Range/Units 13:03 14:17 15:35 WBC (3.8-10.6) k/uL RBC (3.80-5.40) m/uL Hgb (11.4-16.0) gm/dL Hct (34.0-46.0) % Plt Count (150-450) k/uL Neutrophils # (1.3-7.7) k/uL ABG pH (7.35-7.45) ABG pCO2 (35-45) mmHg ABG pO2 (83-108) mmHg ABG Total CO2 (19-24) mmol/L ABG O2 Saturation (94-97) % ABG Hematocrit (34.0-46.0) % ABG Potassium (3.4-4.5) mmol/L Chloride (98-107) mmol/L BUN (7-17) mg/dL Glucose (74-99) mg/dL POC Glucose (mg/dL) 109 H 126 H 102 H (75-99) mg/dL Calcium (8.4-10.2) mg/dL Magnesium (1.6-2.3) mg/dL Total Protein (6.3-8.2) g/dL Albumin (3.5-5.0) g/dL Arterial Blood Potassium (3.4-4.5) mmol/L 12/09/16 12/09/1617 Range/Units 16:23 17:04 18:06 WBC (3.8-10.6) k/uL RBC (3.80-5.40) m/uL Hgb (11.4-16.0) gm/dL Hct (34.0-46.0) % Plt Count (150-450) k/uL Neutrophils # (1.3-7.7) k/uL ABG pH (7.35-7.45) ABG pCO2 (35-45) mmHg ABG pO2 (83-108) mmHg ABG Total CO2 (19-24) mmol/L ABG O2 Saturation (94-97) % ABG Hematocrit (34.0-46.0) % ABG Potassium (3.4-4.5) mmol/L Chloride (98-107) mmol/L BUN (7-17) mg/dL Glucose (74-99) mg/dL POC Glucose (mg/dL) 101 H 112 H 138 H (75-99) mg/dL Calcium (8.4-10.2) mg/dL Magnesium (1.6-2.3) mg/dL Total Protein (6.3-8.2) g/dL Albumin (3.5-5.0) g/dL Arterial Blood Potassium (3.4-4.5) mmol/L 12/09/16 12/09/16 12/09/16 Range/Units 19:03 20:03 21:04 WBC (3.8-10.6) k/uL RBC (3.80-5.40) m/uL Hgb (11.4-16.0) gm/dL Hct (34.0-46.0) % Plt Count (150-450) k/uL Neutrophils # (1.3-7.7) k/uL ABG pH (7.35-7.45) ABG pCO2 (35-45) mmHg ABG pO2 (83-108) mmHg ABG Total CO2 (19-24) mmol/L ABG O2 Saturation (94-97) % ABG Hematocrit (34.0-46.0) % ABG Potassium (3.4-4.5) mmol/L Chloride (98-107) mmol/L BUN (7-17) mg/dL Glucose (74-99) mg/dL POC Glucose (mg/dL) 128 H 105 H 107 H (75-99) mg/dL Calcium (8.4-10.2) mg/dL Magnesium (1.6-2.3) mg/dL Total Protein (6.3-8.2) g/dL Albumin (3.5-5.0) g/dL Arterial Blood Potassium (3.4-4.5) mmol/L 12/09/16 12/09/16 12/10/16 Range/Units 22:00 23:08 00:58 WBC (3.8-10.6) k/uL RBC (3.80-5.40) m/uL Hgb (11.4-16.0) gm/dL Hct (34.0-46.0) % Plt Count (150-450) k/uL Neutrophils # (1.3-7.7) k/uL ABG pH (7.35-7.45) ABG pCO2 (35-45) mmHg ABG pO2 (83-108) mmHg ABG Total CO2 (19-24) mmol/L ABG O2 Saturation (94-97) % ABG Hematocrit (34.0-46.0) % ABG Potassium (3.4-4.5) mmol/L Chloride (98-107) mmol/L BUN (7-17) mg/dL Glucose (74-99) mg/dL POC Glucose (mg/dL) 122 H 115 H 101 H (75-99) mg/dL Calcium (8.4-10.2) mg/dL Magnesium (1.6-2.3) mg/dL Total Protein (6.3-8.2) g/dL Albumin (3.5-5.0) g/dL Arterial Blood Potassium (3.4-4.5) mmol/L 12/10/16 12/10/16 12/10/16 Range/Units 02:03 03:08 03:54 WBC (3.8-10.6) k/uL RBC (3.80-5.40) m/uL Hgb (11.4-16.0) gm/dL Hct (34.0-46.0) % Plt Count (150-450) k/uL Neutrophils # (1.3-7.7) k/uL ABG pH (7.35-7.45) ABG pCO2 (35-45) mmHg ABG pO2 (83-108) mmHg ABG Total CO2 (19-24) mmol/L ABG O2 Saturation (94-97) % ABG Hematocrit (34.0-46.0) % ABG Potassium (3.4-4.5) mmol/L Chloride (98-107) mmol/L BUN (7-17) mg/dL Glucose (74-99) mg/dL POC Glucose (mg/dL) 123 H 112 H 125 H (75-99) mg/dL Calcium (8.4-10.2) mg/dL Magnesium (1.6-2.3) mg/dL Total Protein (6.3-8.2) g/dL Albumin (3.5-5.0) g/dL Arterial Blood Potassium (3.4-4.5) mmol/L 12/10/16 12/10/16 12/10/16 Range/Units 04:57 05:00 05:00 WBC 13.6 H (3.8-10.6) k/uL RBC 2.50 L (3.80-5.40) m/uL Hgb 8.1 L (11.4-16.0) gm/dL Hct 22.5 L (34.0-46.0) % Plt Count 117 L (150-450) k/uL Neutrophils # 11.6 H (1.3-7.7) k/uL ABG pH (7.35-7.45) ABG pCO2 (35-45) mmHg ABG pO2 (83-108) mmHg ABG Total CO2 (19-24) mmol/L ABG O2 Saturation (94-97) % ABG Hematocrit (34.0-46.0) % ABG Potassium (3.4-4.5) mmol/L Chloride 108 H (98-107) mmol/L BUN 24 H (7-17) mg/dL Glucose 104 H (74-99) mg/dL POC Glucose (mg/dL) 108 H (75-99) mg/dL Calcium 8.2 L (8.4-10.2) mg/dL Magnesium (1.6-2.3) mg/dL Total Protein 4.8 L (6.3-8.2) g/dL Albumin 2.8 L (3.5-5.0) g/dL Arterial Blood Potassium (3.4-4.5) mmol/L 12/10/16 Range/Units 06:02 WBC (3.8-10.6) k/uL RBC (3.80-5.40) m/uL Hgb (11.4-16.0) gm/dL Hct (34.0-46.0) % Plt Count (150-450) k/uL Neutrophils # (1.3-7.7) k/uL ABG pH (7.35-7.45) ABG pCO2 (35-45) mmHg ABG pO2 (83-108) mmHg ABG Total CO2 (19-24) mmol/L ABG O2 Saturation (94-97) % ABG Hematocrit (34.0-46.0) % ABG Potassium (3.4-4.5) mmol/L Chloride (98-107) mmol/L BUN (7-17) mg/dL Glucose (74-99) mg/dL POC Glucose (mg/dL) 129 H (75-99) mg/dL Calcium (8.4-10.2) mg/dL Magnesium (1.6-2.3) mg/dL Total Protein (6.3-8.2) g/dL Albumin (3.5-5.0) g/dL Arterial Blood Potassium (3.4-4.5) mmol/L - Imaging and Cardiology Chest x-ray: image reviewed Assessment and Plan (1) Morbid obesity with BMI of 40.0-44.9, adult Status: Acute (2) Diabetes mellitus type 2 in obese Status: Acute (3) Family history of coronary artery disease Status: Acute (4) Hyperlipidemia Status: Acute (5) Hypertension Status: Acute (6) Tobacco dependence in remission Status: Acute (7) Triple vessel coronary artery disease Status: Acute (8) Hypothyroid Status: Acute Plan: 1. Continue aspirin, statin, Plavix. Will increase Lopressor to 50 mg twice a day, will maximize beta steven therapy as tolerated. Will add MICHELLE inhibitor. Will give IV Lasix 20 mg today. 2. Wean Cleviprex. 3. Will discontinue mediastinal chest tubes, Chávez catheter. 4. Wean O2. Encourage incentive spirometry. 5. Insulin drip/diabetic management per primary care services. 6. Increase activity, out of bed to chair. Physical therapy to follow. 7. GI/DVT prophylaxis. 8. Will monitor daily labs and x-rays. 9. More recommendations as patient progresses. Time with Patient: Greater than 30
[2016-12-10] MEDS: CLOPIDOGREL 75 MG TAB PO SCH (08:50)
[2016-12-10] MEDS: METOPROLOL TARTRATE 50 MG TAB PO SCH ×2 (08:50→20:54)
[2016-12-10] MEDS: ASPIRIN 325 MG TAB PO SCH (08:50)
[2016-12-10] MEDS: PANTOPRAZOLE 40 MG TABLET PO SCH (08:51)
[2016-12-10] MEDS: ATORVASTATIN 40 MG TAB PO SCH (08:52)
--- NOTE | 2016-12-10 09:02 | XR ---
EXAMINATION TYPE: XR chest 1V portable DATE OF EXAM: 12/10/2016 COMPARISON: NONE HISTORY: Postop TECHNIQUE: Single frontal view of the chest is obtained. FINDINGS: [place]-Tyrone catheter has been removed. Mediastinal drain and chest tube remain no sizable pn eumothorax. Subsegmental changes at both lung bases noted cannot exclude mild venous congestion Postsurgical changes noted IMPRESSION: Postoperative changes with suspected basilar atelectasis. Mild central venous congestion not excluded.
[2016-12-10] MEDS: INSULIN GLARGINE 100 UNIT/ML 10 ML VIAL SQ SCH (09:08)
[2016-12-10 09:14] LABS: Glucose,Whole Blood 90 mg/dL (75-99)
[2016-12-10 11:08] LABS: Glucose,Whole Blood 162 mg/dL (75-99)
--- NOTE | 2016-12-10 11:09 | P.PN ---
Subjective Principal diagnosis: Coronary artery disease, status post coronary artery bypass grafting This is a very pleasant 61-year-old female patient who follows with as her primary care physician. She has a history of diabetes mellitus, hypertension, hypothyroidism, hyperlipidemia. She was having issues with increased dyspnea with minimal exertion and chest discomfort. She subsequently undergone stress testing and follow-up cardiac catheterization which revealed triple vessel coronary disease. She presented here yesterday 12/08/2016 for an elective coronary artery bypass grafting which was performed by Dr. Moreno. She received a OZUNA to the LAD, reverse saphenous grafts to the obtuse marginal and PDA. She was successfully x-rayed approximate 4:30 this morning. At that time ABGs revealed a PaO2 of 110, pCO2 34 and pH of 7.35 and 60% FiO2 with excellent weaning parameters. Currently, she is seen sitting up in the chair at the bedside. She is awake and alert in no acute distress. He is maintaining good O2 saturations in the upper 90s on 5 L/m per nasal cannula. Her chest x-ray reveals some postsurgical changes along with suspected bibasilar atelectasis. She has a right left and mediastinal chest tube in place. [place]-Tyrone Catheter in place. PA pressure 36/18, CVP 15. Currently on clevidipine at 8 mg per hour, insulin drip at 8.5 units per hour, lactated Ringer's at 20 mL's per hour. The patient is seen again today 12/10/2016 in follow-up in the intensive care unit. This is postoperative day #2. She is currently sitting up in a chair at the bedside. She is awake and alert in no acute distress. She denies any worsening shortness of breath, cough or congestion. She is requiring 6 L high flow nasal cannula to maintain O2 saturations greater than 90%. She is pulling approximately 1000 MLS on the incentive spirometer. She has a very remote history of smoking for approximately 5 years between the ages of 19 and 24. No other pulmonary issues preoperatively. Her chest x-ray does reveal some basilar atelectasis and mild central venous congestion. Her chest tubes remain in place. She is currently on lactated Ringer's at 50 MLS per hour, of the proximal at 1 mg per hour, insulin at 2.5 units per hour. CVP 13. Remaining in normal sinus rhythm. Her surgical pain is well controlled. Objective - Vital Signs Vital signs: Vital Signs Temp 98.9 F 12/10/16 04:00 Pulse 64 12/10/16 10:00 Resp 16 12/10/16 10:00 BP 106/49 12/09/16 09:30 Pulse Ox 100 12/10/16 10:00 Intake & Output 12/09/16 12/10/16 12/10/16 18:59 06:59 18:59 Intake Total 1198.570 744.055 229.787 Output Total 1255 1062 325 Balance -56.430 -317.945 -95.213 Weight 106 kg Intake: IV 1009 583 221 0.9 NaCl- for Pressure 9 33 21 Bag ACETAMINOPHEN IV (For NPO 100 ) 1,000 mg In Empty Bag 1 bag @ 400 mls/hr IVPB Q6HR RANJITH Rx#:[id number] Lactated Ringers 1,000 ml 500 550 200 @ 20 mls/hr IV .Q24H RANJITH Rx#:[id number] Magnesium Sulfate 10 mEq/ 200 100ml Potassium Chloride 10 mEq 200 /100ml Intake, IV Titration 189.570 161.055 8.787 Amount Clevidipine Butyrate 25 50.667 62.8 mg In Empty Bag 1 bag @ 1 MG/HR 2 mls/hr IV .Q24H RANJITH Rx#:[id number] Insulin Regular 100 unit 38.903 48.255 8.787 In Sodium Chloride 0.9% 100 ml @ Per Protocol IV .Q0M RANJITH Rx#:[id number] Lactated Ringers 1,000 ml 100 50 @ 20 mls/hr IV .Q24H RANJITH Rx#:[id number] Output: Chest Tube Drainage 264 630 80 Chest Tube Left Lateral 109 460 40 Chest Chest Tube Right Pleural/ 155 170 40 Mediastinal Drainage 10 Left Rodriguez 10 Urine 856 432 245 Emesis 125 Other: Voiding Method Indwelling Catheter Indwelling Catheter Indwelling Catheter # Emeses 1 ABP, PAP, CO, CI - Last Documented Arterial Blood Pressure 120/43 Pulmonary Artery Pressure 36/18 Cardiac Output 4.8 Cardiac Index 2.4 - Exam GENERAL EXAM: Alert, fairly comfortable in no apparent distress. HEAD: Normocephalic. EYES: Normal reaction of pupils, equal size. NOSE: Clear with pink turbinates. THROAT: No erythema or exudates. NECK: No masses, no JVD. CHEST: Sternal dressing dry and intact. LUNGS: Equal air entry with crackles in the posterior bases. CVS: S1 and S2 normal with no audible murmurs, regular rhythm. ABDOMEN: No hepatosplenomegaly, normal bowel sounds, no guarding or rigidity. SPINE: No scoliosis or deformity SKIN: No rashes CENTRAL NERVOUS SYSTEM: No focal deficits, tone is normal in all 4 extremities. Extremities: There is trace peripheral edema. No clubbing, no cyanosis. Peripheral pulses are intact. - Labs CBC & Chem 7: 12/10/16 05:00 12/10/16 05:00 Labs: Abnormal Lab Results - Last 24 Hours (Table) 12/09/16 12/09/16 12/09/16 Range/Units 11:26 11:57 13:03 WBC (3.8-10.6) k/uL RBC (3.80-5.40) m/uL Hgb (11.4-16.0) gm/dL Hct (34.0-46.0) % Plt Count (150-450) k/uL Neutrophils # (1.3-7.7) k/uL Chloride (98-107) mmol/L BUN (7-17) mg/dL Glucose (74-99) mg/dL POC Glucose (mg/dL) 105 H 109 H (75-99) mg/dL Calcium (8.4-10.2) mg/dL Magnesium 2.5 H (1.6-2.3) mg/dL Total Protein (6.3-8.2) g/dL Albumin (3.5-5.0) g/dL 12/09/16 12/09/16 12/09/16 Range/Units 14:17 15:35 16:23 WBC (3.8-10.6) k/uL RBC (3.80-5.40) m/uL Hgb (11.4-16.0) gm/dL Hct (34.0-46.0) % Plt Count (150-450) k/uL Neutrophils # (1.3-7.7) k/uL Chloride (98-107) mmol/L BUN (7-17) mg/dL Glucose (74-99) mg/dL POC Glucose (mg/dL) 126 H 102 H 101 H (75-99) mg/dL Calcium (8.4-10.2) mg/dL Magnesium (1.6-2.3) mg/dL Total Protein (6.3-8.2) g/dL Albumin (3.5-5.0) g/dL 12/09/16 12/09/16 12/09/16 Range/Units 17:04 18:06 19:03 WBC (3.8-10.6) k/uL RBC (3.80-5.40) m/uL Hgb (11.4-16.0) gm/dL Hct (34.0-46.0) % Plt Count (150-450) k/uL Neutrophils # (1.3-7.7) k/uL Chloride (98-107) mmol/L BUN (7-17) mg/dL Glucose (74-99) mg/dL POC Glucose (mg/dL) 112 H 138 H 128 H (75-99) mg/dL Calcium (8.4-10.2) mg/dL Magnesium (1.6-2.3) mg/dL Total Protein (6.3-8.2) g/dL Albumin (3.5-5.0) g/dL 12/09/16 12/09/16 12/09/16 Range/Units 20:03 21:04 22:00 WBC (3.8-10.6) k/uL RBC (3.80-5.40) m/uL Hgb (11.4-16.0) gm/dL Hct (34.0-46.0) % Plt Count (150-450) k/uL Neutrophils # (1.3-7.7) k/uL Chloride (98-107) mmol/L BUN (7-17) mg/dL Glucose (74-99) mg/dL POC Glucose (mg/dL) 105 H 107 H 122 H (75-99) mg/dL Calcium (8.4-10.2) mg/dL Magnesium (1.6-2.3) mg/dL Total Protein (6.3-8.2) g/dL Albumin (3.5-5.0) g/dL 12/09/16 12/10/16 12/10/16 Range/Units 23:08 00:58 02:03 WBC (3.8-10.6) k/uL RBC (3.80-5.40) m/uL Hgb (11.4-16.0) gm/dL Hct (34.0-46.0) % Plt Count (150-450) k/uL Neutrophils # (1.3-7.7) k/uL Chloride (98-107) mmol/L BUN (7-17) mg/dL Glucose (74-99) mg/dL POC Glucose (mg/dL) 115 H 101 H 123 H (75-99) mg/dL Calcium (8.4-10.2) mg/dL Magnesium (1.6-2.3) mg/dL Total Protein (6.3-8.2) g/dL Albumin (3.5-5.0) g/dL 12/10/16 12/10/16 12/10/16 Range/Units 03:08 03:54 04:57 WBC (3.8-10.6) k/uL RBC (3.80-5.40) m/uL Hgb (11.4-16.0) gm/dL Hct (34.0-46.0) % Plt Count (150-450) k/uL Neutrophils # (1.3-7.7) k/uL Chloride (98-107) mmol/L BUN (7-17) mg/dL Glucose (74-99) mg/dL POC Glucose (mg/dL) 112 H 125 H 108 H (75-99) mg/dL Calcium (8.4-10.2) mg/dL Magnesium (1.6-2.3) mg/dL Total Protein (6.3-8.2) g/dL Albumin (3.5-5.0) g/dL 12/10/16 12/10/16 12/10/16 Range/Units 05:00 05:00 06:02 WBC 13.6 H (3.8-10.6) k/uL RBC 2.50 L (3.80-5.40) m/uL Hgb 8.1 L (11.4-16.0) gm/dL Hct 22.5 L (34.0-46.0) % Plt Count 117 L (150-450) k/uL Neutrophils # 11.6 H (1.3-7.7) k/uL Chloride 108 H (98-107) mmol/L BUN 24 H (7-17) mg/dL Glucose 104 H (74-99) mg/dL POC Glucose (mg/dL) 129 H (75-99) mg/dL Calcium 8.2 L (8.4-10.2) mg/dL Magnesium (1.6-2.3) mg/dL Total Protein 4.8 L (6.3-8.2) g/dL Albumin 2.8 L (3.5-5.0) g/dL Assessment and Plan Plan: Impression: #1 Coronary artery disease status post coronary artery bypass grafting utilizing the OZUNA to the LAD, reverse saphenous vein grafts to the obtuse marginal and PDA. Postoperative day #2. #2 Postoperative mechanical ventilatory support is an expected outcome. Successfully extubated to 6 L/m per nasal cannula. #3 Postoperative atelectasis as an expected surgical outcome. #4 Hyperlipidemia. #5 Hypertension. #6 Diabetes mellitus. #7 Hypothyroidism area #8 Previous history of chronic tobacco dependence. Plan: The patient was seen and evaluated by Dr. Rasmussen. Her chest x-ray and labs were reviewed. We'll continue with bronchodilators 4 times a day and when necessary. We have also encouraged increased use of the incentive spirometer and cough and deep breathing exercises. We'll repeat her chest x-ray in the a.m. Will increase her activity as tolerated. She remains on heparin subcutaneous for DVT prophylaxis. We'll continue to follow.
--- NOTE | 2016-12-10 11:39 | P.PN ---
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 Patient ended up having heart catheter [address] Mathis result were positive with multiple vessel disease. Patient was seen in cardiothoracic surgeon and scheduled for elective triple vessel bypass surgery in today 12/08/2016. Surgery went successfully patient is on mechanical ventilation had the 3 chest tubes sedated currently require minimum vasopressor on insulin drip she is admitted to the ICU. She has slight the drop in hemoglobin post surgery with hemoglobin down 6.2 and low platelet count of 80,000. 12/09: Patient was extubated this morning doing very well sitting in recliner her family around she still and slight the pain having mild shortness of breath but able to tolerate nasal cannula with pulse ox running about 92 percentile. Her platelet count are significantly better than yesterday and no further drop in hemoglobin since yesterday hemoglobin is up to 8.5 today. 12/10: Patient was seen and evaluated today. The patient is doing well, she was sitting up eating breakfast in her chair this morning. She denies any worsening shortness of breath or chest pain. She was noted to have acute blood loss anemia postoperatively, she was treated with 1 unit of packed red blood cells. Patient's hemoglobin today is 8.1. Will try to wean patient off insulin drip today, drip turned down to 1 unit per hour. Will also give Lantus today. Repeat chest x-ray shows postoperative changes with suspected basilar atelectasis. We'll continue to watch patient closely for postoperative combinations. Objective - Vital Signs Vital signs: Vital Signs Temp 98.1 F 12/10/16 11:00 Pulse 69 12/10/16 11:00 Resp 14 12/10/16 11:00 BP 106/49 12/09/16 09:30 Pulse Ox 100 12/10/16 11:00 Intake & Output 12/09/16 12/10/16 12/10/16 18:59 06:59 18:59 Intake Total 1198.570 744.055 285.787 Output Total 1255 1062 465 Balance -56.430 -317.945 -179.213 Weight 106 kg Intake: IV 1009 583 277 0.9 NaCl- for Pressure 9 33 27 Bag ACETAMINOPHEN IV (For NPO 100 ) 1,000 mg In Empty Bag 1 bag @ 400 mls/hr IVPB Q6HR RANJITH Rx#:[id number] Lactated Ringers 1,000 ml 500 550 250 @ 20 mls/hr IV .Q24H RANJITH Rx#:[id number] Magnesium Sulfate 10 mEq/ 200 100ml Potassium Chloride 10 mEq 200 /100ml Intake, IV Titration 189.570 161.055 8.787 Amount Clevidipine Butyrate 25 50.667 62.8 mg In Empty Bag 1 bag @ 1 MG/HR 2 mls/hr IV .Q24H RANJITH Rx#:[id number] Insulin Regular 100 unit 38.903 48.255 8.787 In Sodium Chloride 0.9% 100 ml @ Per Protocol IV .Q0M RANJITH Rx#:[id number] Lactated Ringers 1,000 ml 100 50 @ 20 mls/hr IV .Q24H RANJITH Rx#:[id number] Output: Chest Tube Drainage 264 630 100 Chest Tube Left Lateral 109 460 50 Chest Chest Tube Right Pleural/ 155 170 50 Mediastinal Drainage 10 20 Left Rodriguez 10 20 Urine 856 432 345 Emesis 125 Other: Voiding Method Indwelling Catheter Indwelling Catheter Indwelling Catheter # Emeses 1 ABP, PAP, CO, CI - Last Documented Arterial Blood Pressure 152/52 Pulmonary Artery Pressure 36/18 Cardiac Output 4.8 Cardiac Index 2.4 - Exam - Constitutional General appearance: Present: cooperative, no acute distress, obese. Absent: average body habitus, disheveled, mild distress, morbidly obese, severe distress , thin - EENT Eyes: Present: normal appearance. Absent: abnormal pupil, anicteric sclerae, disc margins sharp, edentulous, EOMI, PERRLA, fundus normal, photophobia, dentition normal, poor dentition, ptosis, scleral icterus ENT: Present: hard of hearing, normal oropharynx. Absent: hearing grossly normal, NA/AT, other, pharyngeal erythema, thrush, tonsillar exudates, tonsillar swelling Ears: bilateral: normal - Neck Neck: Present: normal ROM. Absent: lymphadenopathy, other, rigidity, stridor, thyromegaly Carotids: bilateral: upstroke normal Thyroid: bilateral: normal size - Respiratory Respiratory: bilateral: CTA, diminished, dullness - Cardiovascular Rhythm: regular Heart sounds: normal: S1, S2 Abnormal Heart Sounds: Present: systolic murmur, S3 Gallop - Gastrointestinal General gastrointestinal: Present: decreased bowel sounds, scaphoid. Absent: absent bowel sounds, distended, hepatomegaly, hyperactive bowel sounds, normal bowel sounds, organomegaly, rigid, soft, splenomegaly, tenderness, umbilical hernia, ventral hernia - Integumentary Integumentary: Present: normal, pale, rash. Absent: calor, cellulitis, cyanotic , decreased turgor, flushed, jaundiced, normal turgor, ulcer - Neurologic Neurologic: Present: CNII-XII intact - Musculoskeletal Musculoskeletal: Present: generalized weakness, strength equal bilaterally. Absent: gait normal, right sided weakness, left sided weakness - Psychiatric Psychiatric: Present: A&O x's 3, appropriate affect - Labs CBC & Chem 7: 12/10/16 05:00 12/10/16 05:00 Labs: Abnormal Lab Results - Last 24 Hours (Table) 12/09/16 12/09/16 12/09/16 Range/Units 11:26 11:57 13:03 WBC (3.8-10.6) k/uL RBC (3.80-5.40) m/uL Hgb (11.4-16.0) gm/dL Hct (34.0-46.0) % Plt Count (150-450) k/uL Neutrophils # (1.3-7.7) k/uL Chloride (98-107) mmol/L BUN (7-17) mg/dL Glucose (74-99) mg/dL POC Glucose (mg/dL) 105 H 109 H (75-99) mg/dL Calcium (8.4-10.2) mg/dL Magnesium 2.5 H (1.6-2.3) mg/dL Total Protein (6.3-8.2) g/dL Albumin (3.5-5.0) g/dL 12/09/16 12/09/16 12/09/16 Range/Units 14:17 15:35 16:23 WBC (3.8-10.6) k/uL RBC (3.80-5.40) m/uL Hgb (11.4-16.0) gm/dL Hct (34.0-46.0) % Plt Count (150-450) k/uL Neutrophils # (1.3-7.7) k/uL Chloride (98-107) mmol/L BUN (7-17) mg/dL Glucose (74-99) mg/dL POC Glucose (mg/dL) 126 H 102 H 101 H (75-99) mg/dL Calcium (8.4-10.2) mg/dL Magnesium (1.6-2.3) mg/dL Total Protein (6.3-8.2) g/dL Albumin (3.5-5.0) g/dL 12/09/16 12/09/16 12/09/16 Range/Units 17:04 18:06 19:03 WBC (3.8-10.6) k/uL RBC (3.80-5.40) m/uL Hgb (11.4-16.0) gm/dL Hct (34.0-46.0) % Plt Count (150-450) k/uL Neutrophils # (1.3-7.7) k/uL Chloride (98-107) mmol/L BUN (7-17) mg/dL Glucose (74-99) mg/dL POC Glucose (mg/dL) 112 H 138 H 128 H (75-99) mg/dL Calcium (8.4-10.2) mg/dL Magnesium (1.6-2.3) mg/dL Total Protein (6.3-8.2) g/dL Albumin (3.5-5.0) g/dL 12/09/16 12/09/16 12/09/16 Range/Units 20:03 21:04 22:00 WBC (3.8-10.6) k/uL RBC (3.80-5.40) m/uL Hgb (11.4-16.0) gm/dL Hct (34.0-46.0) % Plt Count (150-450) k/uL Neutrophils # (1.3-7.7) k/uL Chloride (98-107) mmol/L BUN (7-17) mg/dL Glucose (74-99) mg/dL POC Glucose (mg/dL) 105 H 107 H 122 H (75-99) mg/dL Calcium (8.4-10.2) mg/dL Magnesium (1.6-2.3) mg/dL Total Protein (6.3-8.2) g/dL Albumin (3.5-5.0) g/dL 12/09/16 12/10/16 12/10/16 Range/Units 23:08 00:58 02:03 WBC (3.8-10.6) k/uL RBC (3.80-5.40) m/uL Hgb (11.4-16.0) gm/dL Hct (34.0-46.0) % Plt Count (150-450) k/uL Neutrophils # (1.3-7.7) k/uL Chloride (98-107) mmol/L BUN (7-17) mg/dL Glucose (74-99) mg/dL POC Glucose (mg/dL) 115 H 101 H 123 H (75-99) mg/dL Calcium (8.4-10.2) mg/dL Magnesium (1.6-2.3) mg/dL Total Protein (6.3-8.2) g/dL Albumin (3.5-5.0) g/dL 12/10/16 12/10/16 12/10/16 Range/Units 03:08 03:54 04:57 WBC (3.8-10.6) k/uL RBC (3.80-5.40) m/uL Hgb (11.4-16.0) gm/dL Hct (34.0-46.0) % Plt Count (150-450) k/uL Neutrophils # (1.3-7.7) k/uL Chloride (98-107) mmol/L BUN (7-17) mg/dL Glucose (74-99) mg/dL POC Glucose (mg/dL) 112 H 125 H 108 H (75-99) mg/dL Calcium (8.4-10.2) mg/dL Magnesium (1.6-2.3) mg/dL Total Protein (6.3-8.2) g/dL Albumin (3.5-5.0) g/dL 12/10/16 12/10/16 12/10/16 Range/Units 05:00 05:00 06:02 WBC 13.6 H (3.8-10.6) k/uL RBC 2.50 L (3.80-5.40) m/uL Hgb 8.1 L (11.4-16.0) gm/dL Hct 22.5 L (34.0-46.0) % Plt Count 117 L (150-450) k/uL Neutrophils # 11.6 H (1.3-7.7) k/uL Chloride 108 H (98-107) mmol/L BUN 24 H (7-17) mg/dL Glucose 104 H (74-99) mg/dL POC Glucose (mg/dL) 129 H (75-99) mg/dL Calcium 8.2 L (8.4-10.2) mg/dL Magnesium (1.6-2.3) mg/dL Total Protein 4.8 L (6.3-8.2) g/dL Albumin 2.8 L (3.5-5.0) g/dL // Range/Units 11:06 WBC (3.8-10.6) k/uL RBC (3.80-5.40) m/uL Hgb (11.4-16.0) gm/dL Hct (34.0-46.0) % Plt Count (150-450) k/uL Neutrophils # (1.3-7.7) k/uL Chloride (98-107) mmol/L BUN (7-17) mg/dL Glucose (74-99) mg/dL POC Glucose (mg/dL) 162 H (75-99) mg/dL Calcium (8.4-10.2) mg/dL Magnesium (1.6-2.3) mg/dL Total Protein (6.3-8.2) g/dL Albumin (3.5-5.0) g/dL Assessment and Plan Plan: 1 post three-vessel CABG: Continue post surgical care patient is off the vent doing well continue cardiac catheterization technologist 2 surgical related respiratory failure: Off mechanical ventilation doing very well on nasal cannula with O2 level is better so far. 3 multiple vessel CAD: Post CABG so far heart function has been good before surgery. 4 type 2 diabetes on insulin: Her A1c was not that good last time she had it few weeks ago with A1c was running over 8. Insulin drip titrated down to 1 unit per hour, Lantus started this morning, we'll start NovoLog before meals along with a sliding scales and titrate medication as needed. Patient was on Trulicity continue to hold it for now, possibly restart on Wednesday. 5 hyperlipidemia continue atorvastatin at higher dose. 6 hypertension: Has been on amlodipine metoprolol and lisinopril. 7 hypothyroidism we'll continue levothyroxine 50 g 8 chronic and recurrent folliculitis: Patient will be watch carefully after surgery for any sign of skin infection and treat as needed 9 anemia: Patient received 1 unit of packed red blood cells, hemoglobin 8.1, we' ll continue to monitor hemoglobin and hematocrit. 10 thrombocytopenia: We will watch the platelet count in the next 24 hours to make sure this is not related to ELIDIA. With improvement of platelet count currently diagnosis of ELIDIA is not there anymore 11 GI prophylaxis: Patient will be on pantoprazole IV. 12 DVT prophylaxis: Patient is on anticoagulation The above impression and plan of care have been discussed and directed by signing physician. Anh Gaviria nurse practitioner acting as scribe for signing physician.
[2016-12-10 12:23] LABS: Glucose,Whole Blood 155 mg/dL (75-99)
[2016-12-10] MEDS: LISINOPRIL 5 MG TAB PO SCH (12:23)
[2016-12-10 14:01] LABS: Glucose,Whole Blood 153 mg/dL (75-99)
--- NOTE | 2016-12-10 14:34 | PN ---
This patient underwent aortocoronary bypass surgery, is doing well, recovering nicely. doing well on incentive spirometry. Vital signs are stable. Remains in sinus rhythm. S1, S2 heard normally. Lungs reveal improved air entry. Abdomen and lower extremity examination unchanged. Plan is to continue incentive spirometry, pulmonary toileting, increased activity. Possibly move her to telemetry soon. MADHAVI
[2016-12-10 17:13] LABS: Glucose,Whole Blood 124 mg/dL (75-99)
[2016-12-10] MEDS: INSULIN LISPRO (humaLOG) 300 UNIT/3 ML VIAL SQ SCH ×4 (17:17→20:56)
[2016-12-10 20:38] LABS: Glucose,Whole Blood 156 mg/dL (75-99)
[2016-12-10] MEDS: SENNOSIDES-DOCUSATE SODIUM 1 EACH TAB PO SCH (20:51)
[2016-12-11] MEDS: HEPARIN SODIUM,PORCINE 5,000 UNIT/ML 1 ML VIAL SQ SCH ×3 (00:43→17:37)
[2016-12-11] MEDS: HYDROcodone/APAP 5-325MG 1 EACH TAB PO PRN (04:38)
[2016-12-11 06:24] LABS: Basophils # (A) 0.1 k/uL (0-0.2); Basophils % (A) 0 %; CH 31.5; CHCM 34.9; Eosinophils # (A) 0.4 k/uL (0-0.7); Eosinophils % (A) 3 %; HCT 21.5 % (34.0-46.0); HDW 2.79; HGB 7.7 gm/dL (11.4-16.0); Luc # (Auto) 0.24; Luc % (Auto) 2; Lymphocytes # (A) 1.6 k/uL (1.0-4.8); Lymphocytes % (A) 12 %; MCH 32.5 pg (25.0-35.0); MCHC 35.8 g/dL (31.0-37.0); MCV 90.9 fL (80.0-100.0); Mean Platelet Volume 8.3; Monocytes # (A) 0.6 k/uL (0-1.0); Monocytes % (A) 5 %; Neutrophils # (A) 10.2 k/uL (1.3-7.7); Neutrophils % (A) 78 %; RBC 2.37 m/uL (3.80-5.40)
[2016-12-11 06:32] LABS: Prothrombin Time 10.5 sec (9.0-12.0)
[2016-12-11 06:39] LABS: ALT 18 U/L (9-52); AST 18 U/L (14-36); Alkaline Phosphatase 51 U/L (38-126); Anion Gap 5 mmol/L; Blood Urea Nitrogen 26 mg/dL (7-17); Calcium 7.8 mg/dL (8.4-10.2); Carbon Dioxide 27 mmol/L (22-30); Chloride 105 mmol/L (98-107); Glucose 118 mg/dL (74-99); Non-African American GFR(MDRD) >60 (>60 ml/min/1.73 sqM); Potassium 4.7 mmol/L (3.5-5.1); Sodium 137 mmol/L (137-145); Total Bilirubin 0.6 mg/dL (0.2-1.3); Total Protein 4.8 g/dL (6.3-8.2)
[2016-12-11 06:42] LABS: Ionized Calcium 4.8 mg/dL (4.5-5.3)
[2016-12-11] MEDS: LEVOTHYROXINE 50 MCG TAB PO SCH (06:57)
[2016-12-11] MEDS: INSULIN LISPRO (humaLOG) 300 UNIT/3 ML VIAL SQ SCH ×9 (07:31→21:25)
[2016-12-11 07:33] LABS: Glucose,Whole Blood 120 mg/dL (75-99)
[2016-12-11] MEDS: PANTOPRAZOLE 40 MG TABLET PO SCH (07:42)
[2016-12-11] MEDS: ATORVASTATIN 40 MG TAB PO SCH (07:44)
[2016-12-11] MEDS: ASPIRIN 325 MG TAB PO SCH (07:44)
[2016-12-11] MEDS: CLOPIDOGREL 75 MG TAB PO SCH (07:45)
[2016-12-11] MEDS: METOPROLOL TARTRATE 50 MG TAB PO SCH ×3 (07:45→21:22)
[2016-12-11] MEDS: INSULIN GLARGINE 100 UNIT/ML 10 ML VIAL SQ SCH ×2 (07:47→13:13)
--- NOTE | 2016-12-11 08:10 | XR ---
EXAMINATION TYPE: XR chest 1V portable DATE OF EXAM: 12/11/2016 COMPARISON: Prior chest x-ray 12/10/2016 HISTORY: Postop cardiac surgery TECHNIQUE: Single frontal view of the chest is obtained. FINDINGS: Patient is post median sternotomy and rotated. The heart remains enlarged. There are overl keyana cardiac leads. No evident pneumothorax or sizable effusion. Interstitium is increased, minimal p atchy central density is present. Minimal basilar density persists. Right jugular central venous horton th remains in place. Left-sided chest tube remains in place. IMPRESSION: Cardiomegaly, there may be a component of volume overload, atelectasis, small effusion, correlate to exclude pulmonary venous hypertension and interstitial edema, follow-up recommended.
--- NOTE | 2016-12-11 08:12 | P.PN ---
Subjective Principal diagnosis: Severe stenotic multivessel coronary artery disease. Hypertension. Hyperlipidemia. Type 2 diabetes mellitus with hemoglobin A1c 6.8%. Family history of early coronary artery disease. Hypothyroid. Previous tobacco dependence. POD #3 elective coronary artery bypass grafting, left internal mammary artery to the left anterior descending artery, reverse saphenous vein graft to the obtuse marginal artery, reverse saphenous vein graft to the posterior descending artery, left lower extremity endoscopic vein harvesting, epi-aortic ultrasound, intraoperative transesophageal echocardiogram, graft flow measurement using the [employer] system. Acute blood loss anemia postoperative, expected outcome of surgery, treated with transfusion of 1 unit packed red blood cells. Patient's currently sitting up in the recliner in no acute distress eating breakfast. States pain is well-controlled. Chávez catheter discontinued yesterday, no void overnight, was straight cathed this morning for 500 mL urine. Objective - Vital Signs Vital signs: Vital Signs Temp 99.1 F 12/11/16 01:30 Pulse 70 12/11/16 07:00 Resp 12 12/11/16 07:00 BP 106/49 12/09/16 09:30 Pulse Ox 95 12/11/16 06:00 Intake & Output 12/10/16 12/11/16 12/11/16 18:59 06:59 18:59 Intake Total 677.787 645 50 Output Total 1000 530 60 Balance -322.213 115 -10 Weight 105.2 kg Intake: IV 669 645 0.9 NaCl- for Pressure 69 45 Bag Lactated Ringers 1,000 ml 600 600 @ 20 mls/hr IV .Q24H RANJITH Rx#:[id number] Intake, IV Titration 8.787 50 Amount Insulin Regular 100 unit 8.787 In Sodium Chloride 0.9% 100 ml @ Per Protocol IV .Q0M RANJITH Rx#:[id number] Lactated Ringers 1,000 ml 50 @ 20 mls/hr IV .Q24H RANJITH Rx#:[id number] Output: Chest Tube Drainage 130 30 60 Chest Tube Left Lateral 70 30 60 Chest Chest Tube Right Pleural/ 60 Mediastinal Drainage 20 Left Rodriguez 20 Urine 850 500 0 Other: Voiding Method Indwelling Catheter Toilet Bedside Commode # Voids 1 ABP, PAP, CO, CI - Last Documented Arterial Blood Pressure 135/50 Pulmonary Artery Pressure 36/18 Cardiac Output 4.8 Cardiac Index 2.4 - Constitutional General appearance: Present: cooperative, no acute distress, obese - Respiratory Details: Lungs sounds diminished bilaterally. Respirations even, nonlabored. Currently on 4 L nasal cannula with oxygen saturations 97%. Able to achieve 750 mL on her incentive spirometry. Left pleural chest tube to -20 cm wall suction, 20 mL serous drainage overnight, 250 mL drainage in the last 24 hours. - Cardiovascular Details: S1, S2 present. Regular rate and rhythm, normal sinus rhythm on telemetry. Sternum stable. Epicardial pacemaker wires present, grounded. Heart hugger in place with patient demonstrating appropriate use. Teds/SCDs present. Right radial A-line, right internal jugular Cordis present. - Gastrointestinal Gastrointestinal Comment(s): Abdomen soft, nontender, nondistended. Active bowel sounds 4 quadrants. Tolerating diet. - Genitourinary Genitourinary Comment(s): Chávez discontinued yesterday. Patient unable to void. Needed to be straight cathed this morning. - Integumentary Integumentary Comment(s): Anterior chest incision well approximated and covered with dry intact dressing. Left lower extremity EVH site well approximated, CARMEN drain with minimal drainage present. - Musculoskeletal Musculoskeletal: Present: gait normal, strength equal bilaterally - Psychiatric Psychiatric: Present: A&O x's 3, appropriate affect, intact judgment & insight - Allied health notes Allied health notes reviewed: nursing - Labs CBC & Chem 7: 12/11/16 05:50 12/11/16 05:50 Labs: Abnormal Lab Results - Last 24 Hours (Table) 12/10/16 12/10/16 12/10/16 Range/Units 11:06 12:20 13:58 WBC (3.8-10.6) k/uL RBC (3.80-5.40) m/uL Hgb (11.4-16.0) gm/dL Hct (34.0-46.0) % Plt Count (150-450) k/uL Neutrophils # (1.3-7.7) k/uL BUN (7-17) mg/dL Glucose (74-99) mg/dL POC Glucose (mg/dL) 162 H 155 H 153 H (75-99) mg/dL Calcium (8.4-10.2) mg/dL Total Protein (6.3-8.2) g/dL Albumin (3.5-5.0) g/dL 12/10/16 12/10/16 12/11/16 Range/Units 17:11 20:35 05:50 WBC (3.8-10.6) k/uL RBC (3.80-5.40) m/uL Hgb (11.4-16.0) gm/dL Hct (34.0-46.0) % Plt Count (150-450) k/uL Neutrophils # (1.3-7.7) k/uL BUN 26 H (7-17) mg/dL Glucose 118 H (74-99) mg/dL POC Glucose (mg/dL) 124 H 156 H (75-99) mg/dL Calcium 7.8 L (8.4-10.2) mg/dL Total Protein 4.8 L (6.3-8.2) g/dL Albumin 2.6 L (3.5-5.0) g/dL 12/11/16 12/11/16 Range/Units 05:50 07:30 WBC 13.0 H (3.8-10.6) k/uL RBC 2.37 L (3.80-5.40) m/uL Hgb 7.7 L (11.4-16.0) gm/dL Hct 21.5 L (34.0-46.0) % Plt Count 140 L (150-450) k/uL Neutrophils # 10.2 H (1.3-7.7) k/uL BUN (7-17) mg/dL Glucose (74-99) mg/dL POC Glucose (mg/dL) 120 H (75-99) mg/dL Calcium (8.4-10.2) mg/dL Total Protein (6.3-8.2) g/dL Albumin (3.5-5.0) g/dL - Imaging and Cardiology Chest x-ray: image reviewed Assessment and Plan (1) Morbid obesity with BMI of 40.0-44.9, adult Status: Acute (2) Diabetes mellitus type 2 in obese Status: Acute (3) Family history of coronary artery disease Status: Acute (4) Hyperlipidemia Status: Acute (5) Hypertension Status: Acute (6) Tobacco dependence in remission Status: Acute (7) Triple vessel coronary artery disease Status: Acute (8) Hypothyroid Status: Acute (9) Postoperative anemia due to acute blood loss Status: Acute Plan: 1. Continue aspirin, statin, Plavix, MICHELLE inhibitor. Will increase Lopressor to 75 mg twice a day, will maximize beta steven therapy as tolerated. 2. Discontinue arterial line, Cordis.Will discontinue left pleural chest tube. 3. Will monitor urine output. 4. Wean O2. Encourage incentive spirometry. 5. Diabetic management per primary care services. 6. Increase activity, ambulate in hallway. Physical therapy to follow. 7. GI/DVT prophylaxis. 8. Will monitor daily labs and x-rays. 9. Will transfer out of ICU to E. selective care today. Discharge planning in progress. Time with Patient: Greater than 30
[2016-12-11] MEDS: IPRATROPIUM-ALBUTEROL 3 ML NEB INHALATION SCH ×4 (08:35→20:00)
--- NOTE | 2016-12-11 10:21 | P.PN ---
Subjective Principal diagnosis: Coronary artery disease, status post coronary artery bypass grafting This is a very pleasant 61-year-old female patient who follows with as her primary care physician. She has a history of diabetes mellitus, hypertension, hypothyroidism, hyperlipidemia. She was having issues with increased dyspnea with minimal exertion and chest discomfort. She subsequently undergone stress testing and follow-up cardiac catheterization which revealed triple vessel coronary disease. She presented here yesterday 12/08/2016 for an elective coronary artery bypass grafting which was performed by Dr. Moreno. She received a OZUNA to the LAD, reverse saphenous grafts to the obtuse marginal and PDA. She was successfully x-rayed approximate 4:30 this morning. At that time ABGs revealed a PaO2 of 110, pCO2 34 and pH of 7.35 and 60% FiO2 with excellent weaning parameters. Currently, she is seen sitting up in the chair at the bedside. She is awake and alert in no acute distress. He is maintaining good O2 saturations in the upper 90s on 5 L/m per nasal cannula. Her chest x-ray reveals some postsurgical changes along with suspected bibasilar atelectasis. She has a right left and mediastinal chest tube in place. [place]-Tyrone Catheter in place. PA pressure 36/18, CVP 15. Currently on clevidipine at 8 mg per hour, insulin drip at 8.5 units per hour, lactated Ringer's at 20 mL's per hour. The patient is seen again today 12/10/2016 in follow-up in the intensive care unit. This is postoperative day #2. She is currently sitting up in a chair at the bedside. She is awake and alert in no acute distress. She denies any worsening shortness of breath, cough or congestion. She is requiring 6 L high flow nasal cannula to maintain O2 saturations greater than 90%. She is pulling approximately 1000 MLS on the incentive spirometer. She has a very remote history of smoking for approximately 5 years between the ages of 19 and 24. No other pulmonary issues preoperatively. Her chest x-ray does reveal some basilar atelectasis and mild central venous congestion. Her chest tubes remain in place. She is currently on lactated Ringer's at 50 MLS per hour, of the proximal at 1 mg per hour, insulin at 2.5 units per hour. CVP 13. Remaining in normal sinus rhythm. Her surgical pain is well controlled. The patient is seen again today 12/11/2016 in follow-up in the intensive care unit. She is currently sitting up in the chair at the bedside. She is awake and alert in no acute distress. She is doing well today. She has had 2 chest tubes removed [address] She's been up ambulating in the [place] with assistance. She is not on any IV fluids or drips at this time. She is maintaining good O2 saturations in the 90s on 2 L/m per nasal cannula. Pulling approximately 1 L on the incentive spirometer. His x-ray reveals evidence of cardiomegaly and some atelectasis in the bases and some mild pulmonary venous hypertension. Objective - Vital Signs Vital signs: Vital Signs Temp 98.1 F 12/11/16 08:30 Pulse 70 12/11/16 09:13 Resp 12 12/11/16 08:30 BP 136/61 12/11/16 08:30 Pulse Ox 96 12/11/16 08:35 Intake & Output 12/10/16 12/11/16 12/11/16 18:59 06:59 18:59 Intake Total 677.787 645 50 Output Total 1000 530 100 Balance -322.213 115 -50 Weight 105.2 kg Intake: IV 669 645 0.9 NaCl- for Pressure 69 45 Bag Lactated Ringers 1,000 ml 600 600 @ 20 mls/hr IV .Q24H [facility] Rx#:[id number] Intake, IV Titration 8.787 50 Amount Insulin Regular 100 unit 8.787 In Sodium Chloride 0.9% 100 ml @ Per Protocol IV .Q0M [facility] Rx#:[id number] Lactated Ringers 1,000 ml 50 @ 20 mls/hr IV .Q24H [facility] Rx#:[id number] Output: Chest Tube Drainage 130 30 100 Chest Tube Left Lateral 70 30 100 Chest Chest Tube Right Pleural/ 60 Mediastinal Drainage 20 Left Rodriguez 20 Urine 850 500 0 Other: Voiding Method Indwelling Catheter Toilet Toilet Bedside Commode Bedside Commode # Voids 1 ABP, PAP, CO, CI - Last Documented Arterial Blood Pressure 78/60 Pulmonary Artery Pressure 36/18 Cardiac Output 4.8 Cardiac Index 2.4 - Exam GENERAL EXAM: Alert, fairly comfortable in no apparent distress. HEAD: Normocephalic. EYES: Normal reaction of pupils, equal size. NOSE: Clear with pink turbinates. THROAT: No erythema or exudates. NECK: No masses, no JVD. CHEST: Sternal dressing dry and intact. LUNGS: Equal air entry with crackles in the posterior bases. CVS: S1 and S2 normal with no audible murmurs, regular rhythm. ABDOMEN: No hepatosplenomegaly, normal bowel sounds, no guarding or rigidity. SPINE: No scoliosis or deformity SKIN: No rashes CENTRAL NERVOUS SYSTEM: No focal deficits, tone is normal in all 4 extremities. Extremities: There is trace peripheral edema. No clubbing, no cyanosis. Peripheral pulses are intact. - Labs CBC & Chem 7: 12/11/16 05:50 12/11/16 05:50 Labs: Abnormal Lab Results - Last 24 Hours (Table) 12/10/16 12/10/16 12/10/16 Range/Units 11:06 12:20 13:58 WBC (3.8-10.6) k/uL RBC (3.80-5.40) m/uL Hgb (11.4-16.0) gm/dL Hct (34.0-46.0) % Plt Count (150-450) k/uL Neutrophils # (1.3-7.7) k/uL BUN (7-17) mg/dL Glucose (74-99) mg/dL POC Glucose (mg/dL) 162 H 155 H 153 H (75-99) mg/dL Calcium (8.4-10.2) mg/dL Total Protein (6.3-8.2) g/dL Albumin (3.5-5.0) g/dL 12/10/16 12/10/16 12/11/16 Range/Units 17:11 20:35 05:50 WBC (3.8-10.6) k/uL RBC (3.80-5.40) m/uL Hgb (11.4-16.0) gm/dL Hct (34.0-46.0) % Plt Count (150-450) k/uL Neutrophils # (1.3-7.7) k/uL BUN 26 H (7-17) mg/dL Glucose 118 H (74-99) mg/dL POC Glucose (mg/dL) 124 H 156 H (75-99) mg/dL Calcium 7.8 L (8.4-10.2) mg/dL Total Protein 4.8 L (6.3-8.2) g/dL Albumin 2.6 L (3.5-5.0) g/dL 12/11/16 12/11/16 Range/Units 05:50 07:30 WBC 13.0 H (3.8-10.6) k/uL RBC 2.37 L (3.80-5.40) m/uL Hgb 7.7 L (11.4-16.0) gm/dL Hct 21.5 L (34.0-46.0) % Plt Count 140 L (150-450) k/uL Neutrophils # 10.2 H (1.3-7.7) k/uL BUN (7-17) mg/dL Glucose (74-99) mg/dL POC Glucose (mg/dL) 120 H (75-99) mg/dL Calcium (8.4-10.2) mg/dL Total Protein (6.3-8.2) g/dL Albumin (3.5-5.0) g/dL Assessment and Plan Plan: Impression: #1 Coronary artery disease status post coronary artery bypass grafting utilizing the OZUNA to the LAD, reverse saphenous vein grafts to the obtuse marginal and PDA. Postoperative day #3. #2 Postoperative mechanical ventilatory support is an expected outcome. Successfully extubated to 6 L/m per nasal cannula and currently down to 2 L. #3 Postoperative atelectasis as an expected surgical outcome. #4 Hyperlipidemia. #5 Hypertension. #6 Diabetes mellitus. #7 Hypothyroidism #8 Previous history of chronic tobacco dependence. Plan: The patient was seen and evaluated by Dr. Rasmussen. Her chest x-ray and labs were reviewed. We'll continue with bronchodilators 4 times a day and when necessary. We have also encouraged increased use of the incentive spirometer and cough and deep breathing exercises. Will increase her activity as tolerated. She remains on heparin subcutaneous for DVT prophylaxis. We'll continue to follow.
[2016-12-11] MEDS ORDERED: FUROSEMIDE 10 MG/ML 2 ML VIAL IV ONE (10:30)
[2016-12-11 10:49] LABS: Phosphorous 1.8 mg/dL (2.5-4.5)
--- NOTE | 2016-12-11 10:50 | P.PN ---
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 Patient ended up having heart catheter [address] Mathis result were positive with multiple vessel disease. Patient was seen in cardiothoracic surgeon and scheduled for elective triple vessel bypass surgery in today 12/08/2016. Surgery went successfully patient is on mechanical ventilation had the 3 chest tubes sedated currently require minimum vasopressor on insulin drip she is admitted to the ICU. She has slight the drop in hemoglobin post surgery with hemoglobin down 6.2 and low platelet count of 80,000. 12/09: Patient was extubated this morning doing very well sitting in recliner her family around she still and slight the pain having mild shortness of breath but able to tolerate nasal cannula with pulse ox running about 92 percentile. Her platelet count are significantly better than yesterday and no further drop in hemoglobin since yesterday hemoglobin is up to 8.5 today. 12/10: Patient was seen and evaluated today. The patient is doing well, she was sitting up eating breakfast in her chair this morning. She denies any worsening shortness of breath or chest pain. She was noted to have acute blood loss anemia postoperatively, she was treated with 1 unit of packed red blood cells. Patient's hemoglobin today is 8.1. Will try to wean patient off insulin drip today, drip turned down to 1 unit per hour. Will also give Lantus today. Repeat chest x-ray shows postoperative changes with suspected basilar atelectasis. We'll continue to watch patient closely for postoperative combinations. 12/11: Patient was evaluated today, she was noted sitting up in her chair and in no acute distress. Status post coronary bypass surgery, patient doing well. Vital signs remain stable, she remains sinus rhythm. Patient did have some urinary retention after the Chávez catheter was removed and was straight cathed this morning for 500 mL's of urine. She may have her left pleural chest tube discontinued today. Her hemoglobin did drop a little and is 7.7 we'll continue to monitor closely, BUN 26, creatinine 0.69. She was weaned off the insulin drip yesterday she had a few episodes of hyperglycemia in the 150s, Lantus was increased from 20 units to 24 units in hopes to achieve tighter glucose control. Objective - Vital Signs Vital signs: Vital Signs Temp 98.1 F 12/11/16 08:30 Pulse 70 12/11/16 09:13 Resp 12 12/11/16 08:30 BP 136/61 12/11/16 08:30 Pulse Ox 96 12/11/16 08:35 Intake & Output 12/10/16 12/11/16 12/11/16 18:59 06:59 18:59 Intake Total 677.787 645 50 Output Total 1000 530 100 Balance -322.213 115 -50 Weight 105.2 kg Intake: IV 669 645 0.9 NaCl- for Pressure 69 45 Bag Lactated Ringers 1,000 ml 600 600 @ 20 mls/hr IV .Q24H [facility] Rx#:[id number] Intake, IV Titration 8.787 50 Amount Insulin Regular 100 unit 8.787 In Sodium Chloride 0.9% 100 ml @ Per Protocol IV .Q0M [facility] Rx#:[id number] Lactated Ringers 1,000 ml 50 @ 20 mls/hr IV .Q24H [facility] Rx#:[id number] Output: Chest Tube Drainage 130 30 100 Chest Tube Left Lateral 70 30 100 Chest Chest Tube Right Pleural/ 60 Mediastinal Drainage 20 Left Rodriguez 20 Urine 850 500 0 Other: Voiding Method Indwelling Catheter Toilet Toilet Bedside Commode Bedside Commode # Voids 1 ABP, PAP, CO, CI - Last Documented Arterial Blood Pressure 78/60 Pulmonary Artery Pressure 36/18 Cardiac Output 4.8 Cardiac Index 2.4 - Exam - Constitutional General appearance: Present: cooperative, no acute distress, obese. Absent: average body habitus, disheveled, mild distress, morbidly obese, severe distress , thin - EENT Eyes: Present: normal appearance. Absent: abnormal pupil, anicteric sclerae, disc margins sharp, edentulous, EOMI, PERRLA, fundus normal, photophobia, dentition normal, poor dentition, ptosis, scleral icterus ENT: Present: hard of hearing, normal oropharynx. Absent: hearing grossly normal, NA/AT, other, pharyngeal erythema, thrush, tonsillar exudates, tonsillar swelling Ears: bilateral: normal - Neck Neck: Present: normal ROM. Absent: lymphadenopathy, other, rigidity, stridor, thyromegaly Carotids: bilateral: upstroke normal Thyroid: bilateral: normal size - Respiratory Respiratory: bilateral: CTA, diminished, dullness - Cardiovascular Rhythm: regular Heart sounds: normal: S1, S2 Abnormal Heart Sounds: Present: systolic murmur, S3 Gallop - Gastrointestinal General gastrointestinal: Present: decreased bowel sounds, scaphoid. Absent: absent bowel sounds, distended, hepatomegaly, hyperactive bowel sounds, normal bowel sounds, organomegaly, rigid, soft, splenomegaly, tenderness, umbilical hernia, ventral hernia - Integumentary Integumentary: Present: normal, pale, rash. Absent: calor, cellulitis, cyanotic , decreased turgor, flushed, jaundiced, normal turgor, ulcer - Neurologic Neurologic: Present: CNII-XII intact - Musculoskeletal Musculoskeletal: Present: generalized weakness, strength equal bilaterally. Absent: gait normal, right sided weakness, left sided weakness - Psychiatric Psychiatric: Present: A&O x's 3, appropriate affect - Labs CBC & Chem 7: 12/11/16 05:50 12/11/16 05:50 Labs: Abnormal Lab Results - Last 24 Hours (Table) 12/10/16 12/10/16 12/10/16 Range/Units 11:06 12:20 13:58 WBC (3.8-10.6) k/uL RBC (3.80-5.40) m/uL Hgb (11.4-16.0) gm/dL Hct (34.0-46.0) % Plt Count (150-450) k/uL Neutrophils # (1.3-7.7) k/uL BUN (7-17) mg/dL Glucose (74-99) mg/dL POC Glucose (mg/dL) 162 H 155 H 153 H (75-99) mg/dL Calcium (8.4-10.2) mg/dL Total Protein (6.3-8.2) g/dL Albumin (3.5-5.0) g/dL 12/10/16 12/10/16 12/11/16 Range/Units 17:11 20:35 05:50 WBC (3.8-10.6) k/uL RBC (3.80-5.40) m/uL Hgb (11.4-16.0) gm/dL Hct (34.0-46.0) % Plt Count (150-450) k/uL Neutrophils # (1.3-7.7) k/uL BUN 26 H (7-17) mg/dL Glucose 118 H (74-99) mg/dL POC Glucose (mg/dL) 124 H 156 H (75-99) mg/dL Calcium 7.8 L (8.4-10.2) mg/dL Total Protein 4.8 L (6.3-8.2) g/dL Albumin 2.6 L (3.5-5.0) g/dL 12/11/16 12/11/16 Range/Units 05:50 07:30 WBC 13.0 H (3.8-10.6) k/uL RBC 2.37 L (3.80-5.40) m/uL Hgb 7.7 L (11.4-16.0) gm/dL Hct 21.5 L (34.0-46.0) % Plt Count 140 L (150-450) k/uL Neutrophils # 10.2 H (1.3-7.7) k/uL BUN (7-17) mg/dL Glucose (74-99) mg/dL POC Glucose (mg/dL) 120 H (75-99) mg/dL Calcium (8.4-10.2) mg/dL Total Protein (6.3-8.2) g/dL Albumin (3.5-5.0) g/dL Assessment and Plan Plan: 1 post three-vessel CABG: Continue post surgical care patient is off the vent doing well continue cardiac rehabilitation program director 2 surgical related respiratory failure: Off mechanical ventilation doing very well on nasal cannula with O2 level is better so far. 3 multiple vessel CAD: Post CABG so far heart function has been good before surgery. 4 type 2 diabetes on insulin: Her A1c was not that good last time she had it few weeks ago with A1c was running over 8. Insulin drip discontinued, Lantus increased, continue NovoLog before meals along with a sliding scales and titrate medication as needed. Patient was on Trulicity continue to hold it for now, possibly restart on Wednesday. 5 hyperlipidemia continue atorvastatin at higher dose. 6 hypertension: Has been on amlodipine metoprolol and lisinopril. 7 hypothyroidism we'll continue levothyroxine 50 g 8 chronic and recurrent folliculitis: Patient will be watch carefully after surgery for any sign of skin infection and treat as needed 9 anemia: Patient received 1 unit of packed red blood cells, hemoglobin 7.7, we' ll continue to monitor hemoglobin and hematocrit. 10 thrombocytopenia: We will watch the platelet count, with improvement of platelet count currently diagnosis of ELIDIA is not there anymore 11 GI prophylaxis: Patient will be on pantoprazole IV. 12 DVT prophylaxis: Patient is on anticoagulation The above impression and plan of care have been discussed and directed by signing physician. Anh Gaviria nurse practitioner acting as scribe for signing physician.
[2016-12-11 11:32] LABS: Glucose,Whole Blood 157 mg/dL (75-99)
[2016-12-11 11:50] LABS: Glucose,Whole Blood 154 mg/dL (75-99)
[2016-12-11 12:08] LABS: Glucose,Whole Blood 161 mg/dL (75-99)
[2016-12-11] MEDS: LISINOPRIL 5 MG TAB PO SCH (13:17)
--- NOTE | 2016-12-11 16:08 | PN ---
Mrs. Curtis underwent aortocoronary bypass surgery, is recovering nicely, doing well on incentive spirometry. Vital signs are stable. Remains in sinus rhythm. S1, S2 heard normally. Lungs revealed improved air entry. Abdomen and lower extremity examination unchanged. MTDD
[2016-12-11 17:36] LABS: Glucose,Whole Blood 180 mg/dL (75-99)
[2016-12-11 21:17] LABS: Glucose,Whole Blood 172 mg/dL (75-99)
[2016-12-11] MEDS: SENNOSIDES-DOCUSATE SODIUM 1 EACH TAB PO SCH (21:26)
[2016-12-12] MEDS: HEPARIN SODIUM,PORCINE 5,000 UNIT/ML 1 ML VIAL SQ SCH ×4 (00:27→23:53)
[2016-12-12 02:32] LABS: Glucose,Whole Blood 106 mg/dL (75-99)
[2016-12-12 05:46] LABS: Glucose,Whole Blood 106 mg/dL (75-99)
[2016-12-12] MEDS: INSULIN LISPRO (humaLOG) 300 UNIT/3 ML VIAL SQ SCH ×8 (06:42→21:26)
[2016-12-12 06:51] LABS: CH 31.5; CHCM 34.1; HCT 23.1 % (34.0-46.0); HDW 2.98; HGB 7.8 gm/dL (11.4-16.0); MCH 31.4 pg (25.0-35.0); MCHC 33.8 g/dL (31.0-37.0); MCV 92.8 fL (80.0-100.0); Mean Platelet Volume 8.3; RBC 2.48 m/uL (3.80-5.40); RDW 13.8 % (11.5-15.5); WBC 13.1 k/uL (3.8-10.6)
[2016-12-12] MEDS: LEVOTHYROXINE 50 MCG TAB PO SCH (06:54)
[2016-12-12] MEDS: PANTOPRAZOLE 40 MG TABLET PO SCH (06:54)
[2016-12-12 07:11] LABS: ALT 26 U/L (9-52); AST 17 U/L (14-36); Alkaline Phosphatase 62 U/L (38-126); Anion Gap 9 mmol/L; Blood Urea Nitrogen 26 mg/dL (7-17); Calcium 8.4 mg/dL (8.4-10.2); Carbon Dioxide 26 mmol/L (22-30); Chloride 102 mmol/L (98-107); Glucose 100 mg/dL (74-99); Non-African American GFR(MDRD) >60 (>60 ml/min/1.73 sqM); Potassium 4.2 mmol/L (3.5-5.1); Sodium 137 mmol/L (137-145); Total Bilirubin 0.7 mg/dL (0.2-1.3); Total Protein 5.3 g/dL (6.3-8.2)
--- NOTE | 2016-12-12 07:21 | XR ---
EXAMINATION TYPE: XR chest 2V DATE OF EXAM: 12/12/2016 COMPARISON: Chest x-ray from yesterday. HISTORY: Post open cardiac surgery. TECHNIQUE: Frontal and lateral views of the chest are obtained. FINDINGS: Post-CABG changes with mediastinal clips and sternal wires is redemonstrated. There is inte rval removal of left basilar chest tube. No sizable pneumothorax is seen. There is persistent left ba silar opacity consistent with infiltrate and/or atelectasis. Small bilateral pleural effusions are pr esent. Cardiac silhouette size is stable and enlarged with mild central vascular congestion. Osseous structures are intact. IMPRESSION: Interval removal of left basilar chest tube. There is persisting cardiomegaly with small bilateral pleural effusions and mild central vascular congestion as well as more focal left basilar atelectasis and/or infiltrate all redemonstrated.
[2016-12-12] MEDS: ATORVASTATIN 40 MG TAB PO SCH (08:02)
[2016-12-12] MEDS: METOPROLOL TARTRATE 50 MG TAB PO SCH ×2 (08:02→20:19)
[2016-12-12] MEDS: CLOPIDOGREL 75 MG TAB PO SCH (08:02)
[2016-12-12] MEDS: ASPIRIN 325 MG TAB PO SCH (08:02)
[2016-12-12] MEDS: INSULIN GLARGINE 100 UNIT/ML 10 ML VIAL SQ SCH (08:11)
[2016-12-12] MEDS: IPRATROPIUM-ALBUTEROL 3 ML NEB INHALATION SCH ×4 (08:21→19:38)
--- NOTE | 2016-12-12 09:55 | P.PN ---
Subjective Principal diagnosis: Severe symptomatic multivessel coronary artery disease, left ventricular hypertrophy with preserved systolic function, Hypertension, Hyperlipidemia, Type 2 diabetes mellitus with hemoglobin A1c 6.8%, Family history of early coronary artery disease, Hypothyroid, tobacco dependence in remission. POD #4 triple vessel coronary artery bypass grafting using the left internal mammary artery to the left anterior descending coronary artery, a reverse greater saphenous vein graft from the aorta to the obtuse marginal coronary artery, a reverse greater saphenous vein graft from the aorta to the posterior descending coronary artery. Endoscopic harvesting of the left greater saphenous vein. Intraoperative transesophageal echocardiogram and epi-aortic scanning. Intraoperative graft flow measurement using the Peerly[employer] system. Acute blood loss anemia postoperative, expected outcome of surgery, treated with transfusion of 1 unit packed red blood cells on 12/08/2016. The patient is alert and oriented 3, she is sitting up to the bedside chair in no acute distress. She is tolerating her right wrist. Family member at her bedside. Denies complaints at this time, she states she feels much better today. Objective - Vital Signs Vital signs: Vital Signs Temp 98.6 F 12/12/16 08:00 Pulse 83 12/12/16 08:35 Resp 16 12/12/16 08:00 BP 136/62 12/12/16 08:00 Pulse Ox 95 12/12/16 08:24 Intake & Output 12/11/16 12/12/16 12/12/16 18:59 06:59 18:59 Intake Total 50 Output Total 260 10 Balance -210 -10 Weight 105.2 kg Intake: Intake, IV Titration 50 Amount Lactated Ringers 1,000 ml 50 @ 20 mls/hr IV .Q24H [facility] Rx#:[id number] Output: Chest Tube Drainage 220 Chest Tube Left Lateral 220 Chest Drainage 40 10 Left Rodriguez 40 10 Urine 0 Other: Voiding Method Toilet Toilet Bedside Commode # Voids 2 2 # Bowel Movements 1 1 ABP, PAP, CO, CI - Last Documented Arterial Blood Pressure 78/60 Pulmonary Artery Pressure 36/18 Cardiac Output 4.8 Cardiac Index 2.4 - Constitutional General appearance: Present: cooperative, no acute distress, obese - EENT Eyes: Present: normal appearance ENT: Present: hearing grossly normal - Respiratory Details: Respirations are symmetrical and unlabored. Lungs sounds are essentially clear throughout, diminished bilateral bases. She is currently on room air with oxygen saturations of 96%. She is tolerating 1000 mL on her incentive spirometry, reviewed with the patient important of using her incentive spirometry every hour while awake. - Cardiovascular Details: Regular rhythm and rate, negative for S3, gallop or murmur. We will telemetry showing normal sinus rhythm heart rate 82. Her sternum and stable. Heart hugger is in place, she is demonstrating appropriate use of her heart hugger. Knee-high BONNIE hose and sequential compression devices in place to bilateral lower extremities. Heart sounds: normal: S1, S2 - Gastrointestinal Gastrointestinal Comment(s): Her abdomen is soft, nontender, nondistended. She is active bowel sounds in all 4 abdominal quadrants. She is tolerating her diet. Positive bowel movement last night. - Genitourinary Genitourinary Comment(s): Urine output is adequate, clear yellow urine. - Musculoskeletal Musculoskeletal: Present: gait normal, strength equal bilaterally - Psychiatric Psychiatric: Present: A&O x's 3, appropriate affect, intact judgment & insight - Allied health notes Allied health notes reviewed: nursing - Labs CBC & Chem 7: 12/12/16 06:17 12/12/16 06:17 Labs: Abnormal Lab Results - Last 24 Hours (Table) 12/11/16 12/11/16 12/11/16 Range/Units 05:50 11:12 11:47 WBC (3.8-10.6) k/uL RBC (3.80-5.40) m/uL Hgb (11.4-16.0) gm/dL Hct (34.0-46.0) % BUN (7-17) mg/dL Glucose (74-99) mg/dL POC Glucose (mg/dL) 157 H 154 H (75-99) mg/dL Phosphorus 1.8 L (2.5-4.5) mg/dL Total Protein (6.3-8.2) g/dL Albumin (3.5-5.0) g/dL 12/11/16 12/11/16 12/11/16 Range/Units 12:06 17:32 21:16 WBC (3.8-10.6) k/uL RBC (3.80-5.40) m/uL Hgb (11.4-16.0) gm/dL Hct (34.0-46.0) % BUN (7-17) mg/dL Glucose (74-99) mg/dL POC Glucose (mg/dL) 161 H 180 H 172 H (75-99) mg/dL Phosphorus (2.5-4.5) mg/dL Total Protein (6.3-8.2) g/dL Albumin (3.5-5.0) g/dL 12/12/16 12/12/16 12/12/16 Range/Units 02:31 05:45 06:17 WBC 13.1 H (3.8-10.6) k/uL RBC 2.48 L (3.80-5.40) m/uL Hgb 7.8 L (11.4-16.0) gm/dL Hct 23.1 L (34.0-46.0) % BUN (7-17) mg/dL Glucose (74-99) mg/dL POC Glucose (mg/dL) 106 H 106 H (75-99) mg/dL Phosphorus (2.5-4.5) mg/dL Total Protein (6.3-8.2) g/dL Albumin (3.5-5.0) g/dL 12/12/16 12/12/16 Range/Units 06:17 06:17 WBC (3.8-10.6) k/uL RBC (3.80-5.40) m/uL Hgb (11.4-16.0) gm/dL Hct (34.0-46.0) % BUN 26 H (7-17) mg/dL Glucose 100 H (74-99) mg/dL POC Glucose (mg/dL) (75-99) mg/dL Phosphorus 2.2 L (2.5-4.5) mg/dL Total Protein 5.3 L (6.3-8.2) g/dL Albumin 2.9 L (3.5-5.0) g/dL - Imaging and Cardiology Chest x-ray: report reviewed, image reviewed Assessment and Plan (1) Hypothyroid Status: Acute (2) Morbid obesity with BMI of 40.0-44.9, adult Status: Acute (3) Postoperative anemia due to acute blood loss Status: Acute (4) Diabetes mellitus type 2 in obese Status: Acute (5) Family history of coronary artery disease Status: Acute (6) Hyperlipidemia Status: Acute (7) Hypertension Status: Acute (8) Tobacco dependence in remission Status: Acute (9) Triple vessel coronary artery disease Status: Acute Plan: 1. Continue aspirin, statin, Plavix, we will increase his lisinopril to 10 mg by mouth daily, and continue the Lopressor to 75 mg twice a day. 2. Discontinue left leg CARMEN drain. 3. Will monitor urine output, we will give Lasix 20 mg IV twice a day today. 4. Encourage incentive spirometry every hour while awake. 5. Diabetic management per primary care services. 6. Increase activity, ambulate in hallway. Physical therapy to follow. 7. GI/DVT prophylaxis. 8. Will monitor daily labs and x-rays. 9. Discharge planning in progress. We will possibly discharge her home in the a.m. Time with Patient: Greater than 30
[2016-12-12] MEDS ORDERED: SODIUM PHOSPHATE 10 MMOL in SODIUM CHLORIDE 0.9% 250 ML IVPB ONE (10:00)
--- NOTE | 2016-12-12 11:19 | P.PN ---
Subjective Principal diagnosis: Coronary artery disease, status post coronary artery bypass grafting This is a very pleasant 61-year-old female patient who follows with as her primary care physician. She has a history of diabetes mellitus, hypertension, hypothyroidism, hyperlipidemia. She was having issues with increased dyspnea with minimal exertion and chest discomfort. She subsequently undergone stress testing and follow-up cardiac catheterization which revealed triple vessel coronary disease. She presented here yesterday 12/08/2016 for an elective coronary artery bypass grafting which was performed by Dr. Moreno. She received a OZUNA to the LAD, reverse saphenous grafts to the obtuse marginal and PDA. She was successfully x-rayed approximate 4:30 this morning. At that time ABGs revealed a PaO2 of 110, pCO2 34 and pH of 7.35 and 60% FiO2 with excellent weaning parameters. Currently, she is seen sitting up in the chair at the bedside. She is awake and alert in no acute distress. He is maintaining good O2 saturations in the upper 90s on 5 L/m per nasal cannula. Her chest x-ray reveals some postsurgical changes along with suspected bibasilar atelectasis. She has a right left and mediastinal chest tube in place. Edmond-Tyrone Catheter in place. PA pressure 36/18, CVP 15. Currently on clevidipine at 8 mg per hour, insulin drip at 8.5 units per hour, lactated Ringer's at 20 mL's per hour. The patient is seen again today 12/10/2016 in follow-up in the intensive care unit. This is postoperative day #2. She is currently sitting up in a chair at the bedside. She is awake and alert in no acute distress. She denies any worsening shortness of breath, cough or congestion. She is requiring 6 L high flow nasal cannula to maintain O2 saturations greater than 90%. She is pulling approximately 1000 MLS on the incentive spirometer. She has a very remote history of smoking for approximately 5 years between the ages of 19 and 24. No other pulmonary issues preoperatively. Her chest x-ray does reveal some basilar atelectasis and mild central venous congestion. Her chest tubes remain in place. She is currently on lactated Ringer's at 50 MLS per hour, of the proximal at 1 mg per hour, insulin at 2.5 units per hour. CVP 13. Remaining in normal sinus rhythm. Her surgical pain is well controlled. The patient is seen again today 12/11/2016 in follow-up in the intensive care unit. She is currently sitting up in the chair at the bedside. She is awake and alert in no acute distress. She is doing well today. She has had 2 chest tubes removed [address] She's been up ambulating in the [place] with assistance. She is not on any IV fluids or drips at this time. She is maintaining good O2 saturations in the 90s on 2 L/m per nasal cannula. Pulling approximately 1 L on the incentive spirometer. His x-ray reveals evidence of cardiomegaly and some atelectasis in the bases and some mild pulmonary venous hypertension. The patient was seen again today 12/12/2016 in follow-up on the selective care unit. She is awake and alert in no acute distress. She is currently sitting up in the chair at the bedside. She denies any worsening shortness of breath, cough or congestion. She is now pulling approximately 1250 on the incentive spirometer. She is maintaining good O2 saturations in the mid 90s on room air. Chest tubes have been removed. Chest x-ray continues to show cardiomegaly with small bilateral pleural effusions and mild central venous congestion. She's been hemodynamically stable. Hemoglobin 7.8. Objective - Vital Signs Vital signs: Vital Signs Temp 98.6 F 12/12/16 08:00 Pulse 83 12/12/16 08:35 Resp 16 12/12/16 08:00 BP 136/62 12/12/16 08:00 Pulse Ox 95 12/12/16 08:24 Intake & Output 12/11/16 12/12/16 12/12/16 18:59 06:59 18:59 Intake Total 50 Output Total 260 10 Balance -210 -10 Weight 105.2 kg Intake: Intake, IV Titration 50 Amount Lactated Ringers 1,000 ml 50 @ 20 mls/hr IV .Q24H [facility] Rx#:[id number] Output: Chest Tube Drainage 220 Chest Tube Left Lateral 220 Chest Drainage 40 10 Left Rodriguez 40 10 Urine 0 Other: Voiding Method Toilet Toilet Bedside Commode # Voids 2 2 # Bowel Movements 1 1 ABP, PAP, CO, CI - Last Documented Arterial Blood Pressure 78/60 Pulmonary Artery Pressure 36/18 Cardiac Output 4.8 Cardiac Index 2.4 - Exam GENERAL EXAM: Alert, fairly comfortable in no apparent distress. HEAD: Normocephalic. EYES: Normal reaction of pupils, equal size. NOSE: Clear with pink turbinates. THROAT: No erythema or exudates. NECK: No masses, no JVD. CHEST: Sternal dressing dry and intact. LUNGS: Equal air entry with crackles in the posterior bases. CVS: S1 and S2 normal with no audible murmurs, regular rhythm. ABDOMEN: No hepatosplenomegaly, normal bowel sounds, no guarding or rigidity. SPINE: No scoliosis or deformity SKIN: No rashes CENTRAL NERVOUS SYSTEM: No focal deficits, tone is normal in all 4 extremities. Extremities: There is trace peripheral edema. No clubbing, no cyanosis. Peripheral pulses are intact. CARMEN drain in place. - Labs CBC & Chem 7: 12/12/16 06:17 12/12/16 06:17 Labs: Abnormal Lab Results - Last 24 Hours (Table) 12/11/16 12/11/16 12/11/16 Range/Units 11:12 11:47 12:06 WBC (3.8-10.6) k/uL RBC (3.80-5.40) m/uL Hgb (11.4-16.0) gm/dL Hct (34.0-46.0) % BUN (7-17) mg/dL Glucose (74-99) mg/dL POC Glucose (mg/dL) 157 H 154 H 161 H (75-99) mg/dL Phosphorus (2.5-4.5) mg/dL Total Protein (6.3-8.2) g/dL Albumin (3.5-5.0) g/dL 12/11/16 12/11/16 12/12/16 Range/Units 17:32 21:16 02:31 WBC (3.8-10.6) k/uL RBC (3.80-5.40) m/uL Hgb (11.4-16.0) gm/dL Hct (34.0-46.0) % BUN (7-17) mg/dL Glucose (74-99) mg/dL POC Glucose (mg/dL) 180 H 172 H 106 H (75-99) mg/dL Phosphorus (2.5-4.5) mg/dL Total Protein (6.3-8.2) g/dL Albumin (3.5-5.0) g/dL 12/12/16 12/12/16 12/12/16 Range/Units 05:45 06:17 06:17 WBC 13.1 H (3.8-10.6) k/uL RBC 2.48 L (3.80-5.40) m/uL Hgb 7.8 L (11.4-16.0) gm/dL Hct 23.1 L (34.0-46.0) % BUN 26 H (7-17) mg/dL Glucose 100 H (74-99) mg/dL POC Glucose (mg/dL) 106 H (75-99) mg/dL Phosphorus (2.5-4.5) mg/dL Total Protein 5.3 L (6.3-8.2) g/dL Albumin 2.9 L (3.5-5.0) g/dL 12/12/16 Range/Units 06:17 WBC (3.8-10.6) k/uL RBC (3.80-5.40) m/uL Hgb (11.4-16.0) gm/dL Hct (34.0-46.0) % BUN (7-17) mg/dL Glucose (74-99) mg/dL POC Glucose (mg/dL) (75-99) mg/dL Phosphorus 2.2 L (2.5-4.5) mg/dL Total Protein (6.3-8.2) g/dL Albumin (3.5-5.0) g/dL Assessment and Plan Plan: Impression: #1 Coronary artery disease status post coronary artery bypass grafting utilizing the OZUNA to the LAD, reverse saphenous vein grafts to the obtuse marginal and PDA. Postoperative day #4. #2 Postoperative mechanical ventilatory support is an expected outcome. Successfully extubated to 6 L/m per nasal cannula and currently on room air. #3 Postoperative atelectasis as an expected surgical outcome. #4 Hyperlipidemia. #5 Hypertension. #6 Diabetes mellitus. #7 Hypothyroidism #8 Previous history of chronic tobacco dependence. Plan: The patient was seen and evaluated by Dr. Rasmussen. Her chest x-ray and labs were reviewed. She is to receive Lasix 20 mg IV twice a day today. We'll continue with bronchodilators 4 times a day and when necessary. We have also encouraged increased use of the incentive spirometer and cough and deep breathing exercises. Will increase her activity as tolerated. She remains on heparin subcutaneous for DVT prophylaxis. We'll continue to follow.
[2016-12-12] MEDS: LISINOPRIL 10 MG TAB PO SCH (11:55)
[2016-12-12] MEDS: FUROSEMIDE 10 MG/ML 2 ML VIAL IV SCH ×2 (12:53→18:10)
--- NOTE | 2016-12-12 13:25 | PN ---
Mrs. Curtis is status post bypass surgery, remains in sinus rhythm, hemodynamically stable, doing well on incentive spirometry. Vital signs are stable, JVD is not evident. S1, S2 heard normally. Lungs reveal improved air entry. Abdomen and lower extremity exam unchanged. Plan is to continue current medical regimen and see how she does. Hopefully, she will be discharged in the next 24 to 48 hours. Continue incentive spirometry and pulmonary toilet. MADHAVI
--- NOTE | 2016-12-12 14:01 | P.PN ---
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 Patient ended up having heart catheter [address] Mathis result were positive with multiple vessel disease. Patient was seen in cardiothoracic surgeon and scheduled for elective Triple vessel bypass surgery in today 12/08/2016. Surgery went successfully patient is on mechanical ventilation had the 3 chest tube sedated currently require minimum vasopressor on insulin drip she is admitted to the ICU. She has slight the drop in hemoglobin post surgery with hemoglobin down 6.2 and low platelet count of 80,000. Was transfer out of the intensive care unit all chest tubes are out patient is doing very well, blood sugar become much better last 24 hours we will titrate Lantus and keep NovoLog still on Accu-Chek with sliding scales coverage. Patient still have 1 drainage tube and the leg from her graft site. Possibility for discharge hopefully in the next 48 hours. Objective - Vital Signs Vital signs: Vital Signs Temp 98.4 F 12/12/16 12:00 Pulse 72 12/12/16 12:00 Resp 16 12/12/16 12:00 BP 124/59 12/12/16 12:00 Pulse Ox 100 12/12/16 12:00 Intake & Output 12/11/16 12/12/16 12/12/16 18:59 06:59 18:59 Intake Total 50 240 Output Total 260 10 0 Balance -210 -10 240 Weight 105.2 kg Intake: Intake, IV Titration 50 Amount Lactated Ringers 1,000 ml 50 @ 20 mls/hr IV .Q24H [facility] Rx#:[id number] Oral 240 Output: Chest Tube Drainage 220 Chest Tube Left Lateral 220 Chest Drainage 40 10 0 Left Rodriguez 40 10 0 Urine 0 Other: Voiding Method Toilet Toilet Toilet Bedside Commode # Voids 2 2 # Bowel Movements 1 1 ABP, PAP, CO, CI - Last Documented Arterial Blood Pressure 78/60 Pulmonary Artery Pressure 36/18 Cardiac Output 4.8 Cardiac Index 2.4 - Constitutional General appearance: Present: cooperative, disheveled, morbidly obese. Absent: average body habitus, mild distress, no acute distress, obese, severe distress, thin - EENT Eyes: Present: abnormal pupil, normal appearance. Absent: anicteric sclerae, disc margins sharp, edentulous, EOMI, PERRLA, fundus normal, photophobia, dentition normal, poor dentition, ptosis, scleral icterus ENT: Present: hard of hearing, normal oropharynx. Absent: hearing grossly normal, NA/AT, other, pharyngeal erythema, thrush, tonsillar exudates, tonsillar swelling Ears: bilateral: normal - Neck Neck: Present: normal ROM. Absent: lymphadenopathy, other, rigidity, stridor, thyromegaly Carotids: bilateral: upstroke normal Thyroid: bilateral: normal size - Respiratory Respiratory: left: diminished, dullness, rales - Cardiovascular Rhythm: regular Heart sounds: normal: S1, S2 Abnormal Heart Sounds: Present: systolic murmur, S3 Gallop - Gastrointestinal General gastrointestinal: Present: distended, soft. Absent: absent bowel sounds , decreased bowel sounds, hepatomegaly, hyperactive bowel sounds, normal bowel sounds, organomegaly, rigid, scaphoid, splenomegaly, tenderness, umbilical hernia, ventral hernia - Integumentary Integumentary: Present: normal, pale, rash. Absent: calor, cellulitis, cyanotic , decreased turgor, flushed, jaundiced, normal turgor, ulcer - Neurologic Neurologic: Present: CNII-XII intact - Musculoskeletal Musculoskeletal: Present: gait normal, generalized weakness, strength equal bilaterally. Absent: right sided weakness, left sided weakness - Psychiatric Psychiatric: Present: A&O x's 3, appropriate affect. Absent: intact judgment & insight - Labs CBC & Chem 7: 12/12/16 06:17 12/12/16 06:17 Labs: Abnormal Lab Results - Last 24 Hours (Table) 12/11/16 12/11/16 12/12/16 Range/Units 17:32 21:16 02:31 WBC (3.8-10.6) k/uL RBC (3.80-5.40) m/uL Hgb (11.4-16.0) gm/dL Hct (34.0-46.0) % BUN (7-17) mg/dL Glucose (74-99) mg/dL POC Glucose (mg/dL) 180 H 172 H 106 H (75-99) mg/dL Phosphorus (2.5-4.5) mg/dL Total Protein (6.3-8.2) g/dL Albumin (3.5-5.0) g/dL 12/12/16 12/12/16 12/12/16 Range/Units 05:45 06:17 06:17 WBC 13.1 H (3.8-10.6) k/uL RBC 2.48 L (3.80-5.40) m/uL Hgb 7.8 L (11.4-16.0) gm/dL Hct 23.1 L (34.0-46.0) % BUN 26 H (7-17) mg/dL Glucose 100 H (74-99) mg/dL POC Glucose (mg/dL) 106 H (75-99) mg/dL Phosphorus (2.5-4.5) mg/dL Total Protein 5.3 L (6.3-8.2) g/dL Albumin 2.9 L (3.5-5.0) g/dL 12/12/16 Range/Units 06:17 WBC (3.8-10.6) k/uL RBC (3.80-5.40) m/uL Hgb (11.4-16.0) gm/dL Hct (34.0-46.0) % BUN (7-17) mg/dL Glucose (74-99) mg/dL POC Glucose (mg/dL) (75-99) mg/dL Phosphorus 2.2 L (2.5-4.5) mg/dL Total Protein (6.3-8.2) g/dL Albumin (3.5-5.0) g/dL Assessment and Plan Plan: 1 post three-vessel CABG: Continue post surgical care patient is off the vent doing well continue monitor worker 2 surgical related respiratory failure: Off mechanical ventilation doing very well on nasal cannula with O2 level is better so far. 3 multiple vessel CAD: Post CABG so far heart function has been good before surgery. 4 type 2 diabetes on insulin: Doing much better on current dose of Lantus titrated dose for x-ray unit and continue to titrate her NovoLog before meals meals and bedtime continue Accu-Chek with sliding scales coverage. 5 hyperlipidemia continue atorvastatin at higher dose. 6 hypertension: Has been on amlodipine metoprolol and lisinopril. 7 hypothyroidism we'll continue levothyroxine after surgery if she cannot take any oral meds in the next 24 hours which which the dose to half the dose through the IV. 8 chronic and recurrent folliculitis: Patient will be watch carefully after surgery for any sign of skin infection and treated very quickly. 9 anemia: No blood transfusion for the night of further drop in hemoglobin require blood transfusion. 10 GI prophylaxis: Patient will be oral PPI. 11 thrombocytopenia: Much better platelet count are above 100,000.
[2016-12-12 17:22] LABS: Glucose,Whole Blood 118 mg/dL (75-99)
[2016-12-12] MEDS: HYDROcodone/APAP 5-325MG 1 EACH TAB PO PRN (20:18)
[2016-12-12] MEDS: SENNOSIDES-DOCUSATE SODIUM 1 EACH TAB PO SCH (20:20)
[2016-12-12 20:56] LABS: Glucose,Whole Blood 213 mg/dL (75-99)
[2016-12-12] MEDS ORDERED: FUROSEMIDE 10 MG/ML 2 ML VIAL IV SCH (21:00)
[2016-12-13 02:20] LABS: Glucose,Whole Blood 149 mg/dL (75-99)
[2016-12-13 06:02] LABS: Glucose,Whole Blood 139 mg/dL (75-99)
[2016-12-13 06:47] LABS: Basophils # (A) 0.1 k/uL (0-0.2); Basophils % (A) 1 %; CH 31.6; CHCM 33.6; Eosinophils # (A) 0.8 k/uL (0-0.7); Eosinophils % (A) 6 %; HCT 24.7 % (34.0-46.0); HDW 3.06; HGB 8.2 gm/dL (11.4-16.0); Luc # (Auto) 0.35; Luc % (Auto) 3; Lymphocytes # (A) 2.3 k/uL (1.0-4.8); Lymphocytes % (A) 18 %; MCH 31.5 pg (25.0-35.0); MCHC 33.3 g/dL (31.0-37.0); MCV 94.6 fL (80.0-100.0); Mean Platelet Volume 8.1; Monocytes # (A) 0.8 k/uL (0-1.0); Monocytes % (A) 7 %; Neutrophils # (A) 8.2 k/uL (1.3-7.7); Neutrophils % (A) 65 %; RBC 2.61 m/uL (3.80-5.40); RDW 14.2 % (11.5-15.5); WBC 12.5 k/uL (3.8-10.6); WBC (Perox) 12.68
[2016-12-13] MEDS: LEVOTHYROXINE 50 MCG TAB PO SCH (06:52)
[2016-12-13 07:00] LABS: ALT 27 U/L (9-52); AST 16 U/L (14-36); Alkaline Phosphatase 61 U/L (38-126); Anion Gap 10 mmol/L; Blood Urea Nitrogen 24 mg/dL (7-17); Calcium 8.5 mg/dL (8.4-10.2); Carbon Dioxide 27 mmol/L (22-30); Chloride 102 mmol/L (98-107); Glucose 137 mg/dL (74-99); Non-African American GFR(MDRD) >60 (>60 ml/min/1.73 sqM); Potassium 3.9 mmol/L (3.5-5.1); Sodium 139 mmol/L (137-145); Total Bilirubin 0.6 mg/dL (0.2-1.3); Total Protein 5.6 g/dL (6.3-8.2)
--- NOTE | 2016-12-13 07:06 | XR ---
EXAMINATION TYPE: XR chest 2V DATE OF EXAM: 12/13/2016 COMPARISON: Chest x-ray from yesterday. HISTORY: Post open cardiac surgery progress study TECHNIQUE: Frontal and lateral views of the chest are obtained. FINDINGS: Post-CABG changes with mediastinal clips and sternal wires is redemonstrated. There is per sistent patchy left basilar opacity consistent with atelectasis and/or infiltrate. Small bilateral pl eural effusions remain present. Cardiac silhouette size is stable and enlarged with persistent mild c entral vascular congestion. Osseous structures are intact. IMPRESSION: Overall stable findings, cardiomegaly with and mild central vascular congestion and smal l bilateral pleural effusions consistent with CHF exacerbation fluid overload state. In addition patc hy left basilar atelectasis and/or infiltrate is redemonstrated.
[2016-12-13] MEDS: INSULIN LISPRO (humaLOG) 300 UNIT/3 ML VIAL SQ SCH ×4 (07:33→12:03)
[2016-12-13] MEDS: PANTOPRAZOLE 40 MG TABLET PO SCH (07:34)
[2016-12-13] MEDS: IPRATROPIUM-ALBUTEROL 3 ML NEB INHALATION SCH ×2 (08:18→12:07)
[2016-12-13] MEDS: METOPROLOL TARTRATE 50 MG TAB PO SCH (08:23)
[2016-12-13] MEDS: CLOPIDOGREL 75 MG TAB PO SCH (08:23)
[2016-12-13] MEDS: ATORVASTATIN 40 MG TAB PO SCH (08:23)
[2016-12-13] MEDS: HEPARIN SODIUM,PORCINE 5,000 UNIT/ML 1 ML VIAL SQ SCH (08:23)
[2016-12-13] MEDS: ASPIRIN 325 MG TAB PO SCH (08:23)
[2016-12-13] MEDS ORDERED: INSULIN GLARGINE 100 UNIT/ML 10 ML VIAL SQ SCH (09:00)
[2016-12-13 11:26] VITALS: BP 114/76; PULSE 68; RESP 16; TEMP 97.7
[2016-12-13 11:58] LABS: Glucose,Whole Blood 123 mg/dL (75-99)
[2016-12-13] MEDS: LISINOPRIL 10 MG TAB PO SCH (12:03)
--- NOTE | 2016-12-13 12:49 | P.PN ---
Subjective Principal diagnosis: Severe symptomatic multivessel coronary artery disease, left ventricular hypertrophy with preserved systolic function, Hypertension, Hyperlipidemia, Type 2 diabetes mellitus with hemoglobin A1c 6.8%, Family history of early coronary artery disease, Hypothyroid, tobacco dependence in remission. POD #5 triple vessel coronary artery bypass grafting using the left internal mammary artery to the left anterior descending coronary artery, a reverse greater saphenous vein graft from the aorta to the obtuse marginal coronary artery, a reverse greater saphenous vein graft from the aorta to the posterior descending coronary artery. Endoscopic harvesting of the left greater saphenous vein. Intraoperative transesophageal echocardiogram and epi-aortic scanning. Intraoperative graft flow measurement using the Arteris system. Acute blood loss anemia postoperative, expected outcome of surgery, treated with transfusion of 1 unit packed red blood cells on 12/08/2016. The patient is alert and oriented 3, she is sitting up to the bedside chair in no acute distress. Denies complaints at this time, she states she feels much better each day. Objective - Vital Signs Vital signs: Vital Signs Temp 97.1 F L 12/13/16 08:00 Pulse 80 12/13/16 08:34 Resp 18 12/13/16 08:00 BP 176/68 12/13/16 08:00 Pulse Ox 96 12/13/16 08:26 Intake & Output 12/12/16 12/13/16 12/13/16 18:59 06:59 18:59 Intake Total 240 650 480 Output Total 28 30 Balance 212 620 480 Weight 105.6 kg Intake: Oral 240 650 480 Output: Drainage 28 30 Left Rodriguez 28 30 Urine 0 Other: Voiding Method Toilet Toilet Toilet # Voids 1 2 ABP, PAP, CO, CI - Last Documented Arterial Blood Pressure 78/60 Pulmonary Artery Pressure 36/18 Cardiac Output 4.8 Cardiac Index 2.4 - Constitutional General appearance: Present: cooperative, no acute distress - EENT Eyes: Present: PERRLA, normal appearance ENT: Present: hearing grossly normal - Respiratory Details: Respirations are symmetrical and unlabored. Lungs are essentially clear to her bilateral upper lobes, few scattered crackles to her lower lobes. Her oxygen saturations are 96% on room air. She is tolerating 4580-2564 mL on her incentive spirometry. She's been encouraged to use her incentive spirometry every hour while awake. - Cardiovascular Details: Regular rhythm and rate, negative for S3, gallop or murmur. Her sternum is stable, heart hugger in place and she is demonstrating appropriate use of her heart hugger. She has knee-high BONNIE hose and sequential compression devices in place to bilateral lower extremities. There is +1 edema to her bilateral lower extremities. Heart rate: 71 (Remote telemetry showing normal sinus rhythm) Rhythm: regular Heart sounds: normal: S1, S2 - Gastrointestinal Gastrointestinal Comment(s): Her abdomen is soft, nontender and nondistended. She is positive bowel sounds all 4 abdominal quadrants. She is tolerating her diet. - Genitourinary Genitourinary Comment(s): Adequate urine output, clear yellow urine. - Integumentary Integumentary Comment(s): Her midline sternal incision is clean dry and well approximated. Dermabond dressing remains clean and dry with no drainage noted. Her left leg incisions are clean dry and well approximated. Scant serous drainage from her left mid thigh incision. Integumentary: Present: normal, normal turgor - Neurologic Neurologic: Present: CNII-XII intact - Musculoskeletal Musculoskeletal: Present: gait normal, generalized weakness, strength equal bilaterally - Psychiatric Psychiatric: Present: A&O x's 3, appropriate affect, intact judgment & insight - Allied health notes Allied health notes reviewed: nursing - Labs CBC & Chem 7: 12/13/16 06:18 12/13/16 06:18 Labs: Abnormal Lab Results - Last 24 Hours (Table) 12/12/16 12/12/16 12/13/16 Range/Units 16:58 20:55 02:18 WBC (3.8-10.6) k/uL RBC (3.80-5.40) m/uL Hgb (11.4-16.0) gm/dL Hct (34.0-46.0) % Neutrophils # (1.3-7.7) k/uL Eosinophils # (0-0.7) k/uL BUN (7-17) mg/dL Glucose (74-99) mg/dL POC Glucose (mg/dL) 118 H 213 H 149 H (75-99) mg/dL Total Protein (6.3-8.2) g/dL Albumin (3.5-5.0) g/dL 12/13/16 12/13/16 12/13/16 Range/Units 06:00 06:18 06:18 WBC 12.5 H (3.8-10.6) k/uL RBC 2.61 L (3.80-5.40) m/uL Hgb 8.2 L (11.4-16.0) gm/dL Hct 24.7 L (34.0-46.0) % Neutrophils # 8.2 H (1.3-7.7) k/uL Eosinophils # 0.8 H (0-0.7) k/uL BUN 24 H (7-17) mg/dL Glucose 137 H (74-99) mg/dL POC Glucose (mg/dL) 139 H (75-99) mg/dL Total Protein 5.6 L (6.3-8.2) g/dL Albumin 3.1 L (3.5-5.0) g/dL - Imaging and Cardiology Chest x-ray: report reviewed, image reviewed Assessment and Plan (1) Hypothyroid Status: Acute (2) Morbid obesity with BMI of 40.0-44.9, adult Status: Acute (3) Postoperative anemia due to acute blood loss Status: Acute (4) Diabetes mellitus type 2 in obese Status: Acute (5) Family history of coronary artery disease Status: Acute (6) Hyperlipidemia Status: Acute (7) Hypertension Status: Acute (8) Tobacco dependence in remission Status: Acute (9) Triple vessel coronary artery disease Status: Acute Plan: 1. Continue aspirin, statin, Plavix, lisinopril to 10 mg by mouth daily, and continue the Lopressor to 75 mg twice a day. 2. The patient will be discharged home today and will be sent home on Lasix 40 mg by mouth daily 3 days and K Dur 20 mEq by mouth daily 3 days.. 3. Encourage incentive spirometry every hour while awake. 4. Diabetic management per primary care services. 5. Increase activity, ambulate in hallway. Physical therapy to follow. 6. GI/DVT prophylaxis. 7. Will monitor daily labs and x-rays. 8. She'll be discharged home today, discharge instructions reviewed with the patient. Time with Patient: Greater than 30
[2016-12-13] MEDS ORDERED: FUROSEMIDE 40 MG TAB PO ONE (13:00)
[2016-12-13] MEDS ORDERED: POTASSIUM CHLORIDE ER 20 MEQ TAB.ER PO ONE (13:00)
--- NOTE | 2016-12-13 13:52 | P.PN ---
Subjective Principal diagnosis: Post three-vessel CABG, CAD with positive stress test and heart cath, diabetes better controlled, hyperlipidemia, hypertension, arrhythmia, anemia. 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 Patient ended up having heart catheter [address] Mathis result were positive with multiple vessel disease. Patient was seen in cardiothoracic surgeon and scheduled for elective Triple vessel bypass surgery in today 12/08/2016. Surgery went successfully patient is on mechanical ventilation had the 3 chest tube sedated currently require minimum vasopressor on insulin drip she is admitted to the ICU. She has slight the drop in hemoglobin post surgery with hemoglobin down 6.2 and low platelet count of 80,000. Was transfer out of the intensive care unit all chest tubes are out patient is doing very well, blood sugar become much better last 24 hours we will titrate Lantus and keep NovoLog still on Accu-Chek with sliding scales coverage. Patient still have 1 drainage tube and the leg from her graft site. Possibility for discharge hopefully in the next 48 hours. Blood sugars under well control, patient's pain is under control, no arrhythmia all her lab and vitals are stable hemoglobin still running at 8.2 with no need for blood transfusion. Cardiothoracic service might send patient home today. Objective - Vital Signs Vital signs: Vital Signs Temp 97.7 F 12/13/16 11:25 Pulse 68 12/13/16 11:26 Resp 16 12/13/16 11:26 BP 114/76 12/13/16 11:25 Pulse Ox 100 12/13/16 11:25 Intake & Output 12/12/16 12/13/16 12/13/16 18:59 06:59 18:59 Intake Total 240 650 480 Output Total 28 30 Balance 212 620 480 Weight 105.6 kg Intake: Oral 240 650 480 Output: Drainage 28 30 Left Rodriguez 28 30 Urine 0 Other: Voiding Method Toilet Toilet Toilet # Voids 1 2 ABP, PAP, CO, CI - Last Documented Arterial Blood Pressure 78/60 Pulmonary Artery Pressure 36/18 Cardiac Output 4.8 Cardiac Index 2.4 - Constitutional General appearance: Present: cooperative, no acute distress, obese. Absent: average body habitus, disheveled, mild distress, morbidly obese, severe distress , thin - EENT Eyes: Present: normal appearance. Absent: abnormal pupil, anicteric sclerae, disc margins sharp, edentulous, EOMI, PERRLA, fundus normal, photophobia, dentition normal, poor dentition, ptosis, scleral icterus ENT: Present: normal oropharynx. Absent: hard of hearing, hearing grossly normal, NA/AT, other, pharyngeal erythema, thrush, tonsillar exudates, tonsillar swelling Ears: bilateral: normal - Neck Neck: Present: normal ROM Carotids: bilateral: upstroke normal Thyroid: bilateral: normal size - Respiratory Details: Incision from her open heart surgery looks fine with no sign of hematoma no sign of infection or induration. Respiratory: left: diminished, dullness, rhonchi - Cardiovascular Rhythm: regular Heart sounds: normal: S1, S2 Abnormal Heart Sounds: Present: systolic murmur - Gastrointestinal General gastrointestinal: Present: normal bowel sounds, soft. Absent: absent bowel sounds, decreased bowel sounds, distended, hepatomegaly, hyperactive bowel sounds, organomegaly, rigid, scaphoid, splenomegaly, tenderness, umbilical hernia, ventral hernia - Integumentary Integumentary Comment(s): Left leg venograph side still have drainage tube in no bleeding no sign of infection positive pulse in the dorsalis pedis. Integumentary: Present: normal, pale. Absent: calor, cellulitis, cyanotic, decreased turgor, flushed, jaundiced, normal turgor, rash, ulcer - Neurologic Neurologic: Present: CNII-XII intact - Musculoskeletal Musculoskeletal: Present: gait normal, generalized weakness, strength equal bilaterally - Psychiatric Psychiatric: Present: A&O x's 3, appropriate affect - Labs CBC & Chem 7: 12/13/16 06:18 12/13/16 06:18 Labs: Abnormal Lab Results - Last 24 Hours (Table) 12/12/16 12/12/16 12/13/16 Range/Units 16:58 20:55 02:18 WBC (3.8-10.6) k/uL RBC (3.80-5.40) m/uL Hgb (11.4-16.0) gm/dL Hct (34.0-46.0) % Neutrophils # (1.3-7.7) k/uL Eosinophils # (0-0.7) k/uL BUN (7-17) mg/dL Glucose (74-99) mg/dL POC Glucose (mg/dL) 118 H 213 H 149 H (75-99) mg/dL Total Protein (6.3-8.2) g/dL Albumin (3.5-5.0) g/dL 12/13/16 12/13/16 12/13/16 Range/Units 06:00 06:18 06:18 WBC 12.5 H (3.8-10.6) k/uL RBC 2.61 L (3.80-5.40) m/uL Hgb 8.2 L (11.4-16.0) gm/dL Hct 24.7 L (34.0-46.0) % Neutrophils # 8.2 H (1.3-7.7) k/uL Eosinophils # 0.8 H (0-0.7) k/uL BUN 24 H (7-17) mg/dL Glucose 137 H (74-99) mg/dL POC Glucose (mg/dL) 139 H (75-99) mg/dL Total Protein 5.6 L (6.3-8.2) g/dL Albumin 3.1 L (3.5-5.0) g/dL 12/13/16 Range/Units 11:37 WBC (3.8-10.6) k/uL RBC (3.80-5.40) m/uL Hgb (11.4-16.0) gm/dL Hct (34.0-46.0) % Neutrophils # (1.3-7.7) k/uL Eosinophils # (0-0.7) k/uL BUN (7-17) mg/dL Glucose (74-99) mg/dL POC Glucose (mg/dL) 123 H (75-99) mg/dL Total Protein (6.3-8.2) g/dL Albumin (3.5-5.0) g/dL Assessment and Plan Plan: 1 post three-vessel CABG: Continue post surgical care patient is off the vent doing well continue [employer] operations consultant. Doing well might be going home today. 2 surgical related respiratory failure: Off mechanical ventilation doing very well on nasal cannula with O2 level is better so far. Patient does not require any oxygen 3 days past the surgery. 3 multiple vessel CAD: Post CABG so far heart function has been good before surgery. 4 type 2 diabetes on insulin: Doing much better on current dose of Lantus titrated dose for x-ray unit and continue to titrate her NovoLog before meals meals and bedtime continue Accu-Chek with sliding scales coverage. The adjustment had on Lantus and Humalog from yesterday had subtle nicely blood sugars running in the low 100. 5 hyperlipidemia continue atorvastatin at higher dose. 6 hypertension: Has been on amlodipine metoprolol and lisinopril. 7 hypothyroidism we'll continue levothyroxine after surgery if she cannot take any oral meds in the next 24 hours which which the dose to half the dose through the IV. 8 chronic and recurrent folliculitis: Patient will be watch carefully after surgery for any sign of skin infection and treated very quickly. 9 anemia: No blood transfusion for the night of further drop in hemoglobin require blood transfusion. 10 GI prophylaxis: Patient will be oral PPI. 11 thrombocytopenia: Much better platelet count are above 100,000. Discharge planning patient is stable might be able to go home today.
--- NOTE | 2016-12-13 15:43 | PN ---
This is a 61-year-old female who is now on the 6th Floor. She is status post bypass grafting. She is doing relatively well. She is postop day #5. She had OZUNA to LAD, reverse saphenous vein graft to the obtuse marginal and PDA. She had postoperative respiratory failure requiring mechanical ventilation. She has some postoperative atelectasis, hyperlipidemia, hypertension, diabetes, hypothyroidism and previous history of chronic tobacco use with possible underlying COPD. She is doing much better. The patient will be discharged home today by cardiothoracic surgery. I told Aiden, the cardiothoracic assistant professor of philosophy , to make sure she has follow up with us. She is doing much better. Vital signs are stable. Temperature 97.7, heart rate 68, respiratory rate 16, blood pressure 114/76, mean 88, room air saturation 100%. Appears in no acute distress. HEENT: Grossly unremarkable. Mucous membranes are moist. No oral lesions. NECK: Supple. Full range of motion. No adenopathy, thyromegaly or neck vein distention. CARDIOVASCULAR: Reveals regular rhythm and rate. Heart sounds are distant. S1 /S2 normal. LUNGS: Clear. Breath sounds are equal. No wheezes or rhonchi. ABDOMEN: Soft. Bowel sounds are heard. EXTREMITIES: Intact. No cyanosis, clubbing or edema. SKIN: Without rash. NEUROLOGIC: Nonfocal. Lab data is reviewed. White count 12.5, hemoglobin 8.2, hematocrit 24.7, platelet count normal. Electrolytes look pretty good. BUN and creatinine were 24 and 0.8. Albumin 3.1. Microbiology is all negative. ASSESSMENT: 1. Status post bypass grafting, three vessel, postop day #5. 2. Postoperative respiratory failure with mechanical ventilation, resolved. 3. Postoperative atelectasis. 4. Hyperlipidemia. 5. Hypertension. 6. Diabetes. 7. Hypothyroidism. 8. History of heavy tobacco use. PLAN: Will continue to follow. No additional recommendations are made. Prognosis is guarded. Medications are appropriate. MTDD
--- NOTE | 2016-12-13 16:56 | PN ---
She is status post bypass surgery, doing well clinically, appears to be better. There is a Hemovac in the leg wound but that is also draining very little. Vitals are stable. She is doing well on incentive spirometry. S1/S2 are normal. Lungs reveal improved air entry. PLAN: Continue current medications, pulmonary toilet, incentive spirometry and possible discharge tomorrow. MTDD
== END 2016-12-13 15:48 | disposition home health service (06) | DRG 236 ==
LOC: 2ORMAIN 12-08 05:48 → 6ICU 12-08 15:39 → 6SEL 12-11 21:17
PROVIDERS: ADMIT Surgery; ATTEND Surgery
PROC: 06BQ0ZZ Excision of Left Saphenous Vein, Open Approach (ICD-10-PCS; 2016-12-08)
PROC: B246ZZ4 Ultrasonography of Right and Left Heart, Transesophageal (ICD-10-PCS; 2016-12-08)
PROC: 5A1221Z Performance of Cardiac Output, Continuous (ICD-10-PCS; 2016-12-08)
PROC: 30233N0 Transfusion of Autologous Red Blood Cells into Peripheral Vein, Percutaneous Approach (ICD-10-PCS; 2016-12-08)
PROC: 30243N1 Transfusion of Nonautologous Red Blood Cells into Central Vein, Percutaneous Approach (ICD-10-PCS; 2016-12-08)
PROC: 02100Z9 Bypass Coronary Artery, One Artery from Left Internal Mammary, Open Approach (ICD-10-PCS; principal; 2016-12-08 08:00)
PROC: 021109W Bypass Coronary Artery, Two Arteries from Aorta with Autologous Venous Tissue, Open Approach (ICD-10-PCS; 2016-12-08 08:00)
DX: I25.10 Atherosclerotic heart disease of native coronary artery without angina pectoris (principal); E88.81 Metabolic syndrome and other insulin resistance; D69.6 Thrombocytopenia, unspecified; E11.65 Type 2 diabetes mellitus with hyperglycemia; I27.2 Other secondary pulmonary hypertension; D62 Acute posthemorrhagic anemia; I10 Essential (primary) hypertension; E66.01 Morbid (severe) obesity due to excess calories; E03.9 Hypothyroidism, unspecified; I34.0 Nonrheumatic mitral (valve) insufficiency; R33.8 Other retention of urine; E78.5 Hyperlipidemia, unspecified; K21.9 Gastro-esophageal reflux disease without esophagitis; I44.0 Atrioventricular block, first degree; E11.319 Type 2 diabetes mellitus with unspecified diabetic retinopathy without macular edema; L73.9 Follicular disorder, unspecified; M85.88 Other specified disorders of bone density and structure, other site; R53.1 Weakness; H40.9 Unspecified glaucoma; H54.41 Blindness, right eye, normal vision left eye; H91.90 Unspecified hearing loss, unspecified ear; F17.201 Nicotine dependence, unspecified, in remission; Z79.899 Other long term (current) drug therapy; Z79.82 Long term (current) use of aspirin; Z82.49 Family history of ischemic heart disease and other diseases of the circulatory system; Z98.84 Bariatric surgery status; Z90.49 Acquired absence of other specified parts of digestive tract; Z79.4 Long term (current) use of insulin; Z98.42 Cataract extraction status, left eye; Z86.73 Personal history of transient ischemic attack (TIA), and cerebral infarction without residual deficits; Z86.69 Personal history of other diseases of the nervous system and sense organs
CPT/HCPCS: 36620; 71010; 71020; 80048; 80053; 82330; 82805; 83735; 84100; 84132; 85025; 85027; 85520; 85610; 85730; 86850; 86891; 86900; 86901; 86920; 94002; 94003; 94640; 94760

== ENCOUNTER → 2016-12-07 | Outpatient (CLI) | payer BC ==
[2016-12-07 15:11] VITALS: BP 171/66; PULSE 82; RESP 16; TEMP 98; BMI 39.2
--- NOTE | 2016-12-07 16:06 | P.HPBAR ---
Bariatric H&P - History & Physicial H&P Date: 12/07/16 History & Physicial: Visit/CC: Emptied band/surrgery Patient initial contact: Initial weight: 97.125 kg Initial weight in pounds: 214.00 Height: 5 ft 2 in Initial BMI: 39.2 Last weight: Current weight: 97.125 kg Current weight in pounds: 214.00 Current BMI: 39.2 [place] body weight (based on NIH guidelines): 49.895 kg Excess body weight loss: 0.0% The patient is a 61 year-old F who presents for Bariatric Assessment. The patient is undergoing cardiac surgery tomorrow. She is having a triple-vessel bypass. She is requesting her fluid removed. Past Medical History Past Medical History: Diabetes Mellitus, Hypertension, Thyroid Disorder History of Any Multi-Drug Resistant Organisms: None Reported Past Surgical History: Appendectomy, Bariatric Surgery Past Psychological History: No Psychological Hx Reported Smoking Status: Former smoker - Past Family History Mother Family Medical History: Coronary Artery Disease (CAD) Father Family Medical History: Coronary Artery Disease (CAD) Brother(s) Additional Family Medical History / Comment(s): brother of heart problem Surgical - Exam Vital Signs Temp Pulse Resp BP 98.0 F 82 16 171/66 12/07/16 15:07 12/07/16 15:07 12/07/16 15:07 12/07/16 15:07 - General well developed, no distress - Eyes PERRL - Abdomen Abdomen: soft, non tender Bariatric Assessment & Plan Plan: Patient LAP-BAND was emptied. 2.5 mL remove the band. She will follow-up when she is clinically stable from her CABG. Bariatric Checklist Checklist: Plan: Checklist: EGD: 1. Hiatal hernia: 2. H. Pylori: HgbA1c: Vitamin D: Smoking: Former smoker Primary care physician referral: Psychiatry clearance: Cardiology clearance: Sleep study: Diet journal: VTE risk score: VTE risk level: Rehab needs at discharge:
== END ==
LOC: BARWHC3 14:44
PROVIDERS: ATTEND Surgery
DX: Z48.815 Encounter for surgical aftercare following surgery on the digestive system (principal); Z98.84 Bariatric surgery status; Z87.891 Personal history of nicotine dependence
CPT/HCPCS: 99212

== ENCOUNTER → 2017-04-06 | Outpatient (CLI) | payer BC ==
--- NOTE | 2017-04-06 10:01 | WWHP ---
[facility] - HISTORY AND PHYSICAL CHIEF COMPLAINT: The patient is here for routine gynecologic exam and mammogram. HPI: This is a 61-year-old G 4, P 4, with an LMP of 2008. She denies any postmenopausal bleeding and is without gynecologic complaints. She also denies any problems with vaginal prolapse. PAST MEDICAL HISTORY: Chronic hypertension, type 2 diabetes, hypothyroidism, and coronary artery disease status post triple bypass surgery in 2017. MEDICATIONS: Jardiance 10 mg daily, clopidogrel 75 mg 1 daily, levothyroxine 50 mcg daily, aspirin 325 mg daily, lisinopril 10 mg daily. Metoprolol 75 mg b.i.d. vitamin D2 1.25 mg weekly. Atorvastatin 40 mg daily. Pantoprazole 40 mg daily. Trulicity 1.5 mg injection weekly. Lantus 15 units subcu at bedtime. ALLERGIES: No known drug allergies. PAST SURGICAL HISTORY: Appendectomy 1969, tubal ligation 1998, lap band surgery 2004 and triple bypass heart surgery 12/14. Also history of multiple eye surgeries including cataract, glaucoma, and retina surgeries. PAST COUNTY ADMINISTRATOR HISTORY: She has a history of genital herpes. She has no other history of STDs. SOCIAL HISTORY: She denies tobacco, alcohol, and drug use. 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 FAMILY HISTORY: Father had skin cancer, diabetes and heart disease. Mother had heart disease and diabetes. Sister had cervical cancer. REVIEW OF SYSTEMS: She has lost about 13 pounds over the last year. She denies respiratory, cardiac or GI problems. PHYSICAL EXAM: Blood pressure 149/78, height 5 feet 2 inches, weight 204 pounds, BMI 37, temperature 97.6, pulse 70. This is a well-developed, heavyset white female, who is alert and oriented x3, in no acute distress. HEENT is within normal limits. NECK: Supple without mass or thyromegaly. CHEST AND LUNGS: Clear to auscultation. HEART: Regular rate and rhythm. BREASTS: There is a scar at the 1 o'clock position of the right breast which is the spot where she had an insect bite last year. This is dry and healed. There are no palpable masses in the breast and there is no nipple discharge. The breasts are nontender. Axillary exam is negative for adenopathy. BACK: Negative for CVA tenderness. ABDOMEN: Soft, nontender, and mildly obese. PELVIC EXAM: External genitalia reveals mild atrophy without lesions. There is a grade 2 rectocele and grade 2 cystocele noted in the vagina, which is stable from her previous exam. There is no significant uterine prolapse. There is no unusual discharge. The uterus is mid position nongravid size and nontender. There are no palpable adnexal masses or tenderness. RECTOVAGINAL: Exam is negative for mass or tenderness and is negative for occult blood. EXTREMITIES: Nontender. IMPRESSION: 1. A 61-year-old menopausal female with stable grade 2 cystocele and grade 2 rectocele which is asymptomatic. 2. Multiple medical problems. PLAN: 1. Pap smear was deferred since she had a normal 1 last year. 2. Self breast examination was discussed. 3. Mammogram will be done today. 4. Osteoporosis prevention was discussed and she will also be doing a bone density test today. 5. I have recommended screening colonoscopy since she has never had this done. She is declining this. We have also discussed the option of Cologuard if she does not want to have a screening colonoscopy done and she states she will consider these options. 6. We have discussed her elevated blood pressure. I have recommended that she regularly check her own blood pressure and to follow up with Dr. Montalvo for blood pressure elevations. 7. She will return in 1 year. MMODL / IJN: [id number] / MADHAVI
--- NOTE | 2017-04-06 16:25 | BD ---
EXAMINATION TYPE: MG DEXA axial skeleton. DATE OF EXAM: 04/06/2017 COMPARISON: NONE CLINICAL HISTORY: 61-year-old female postmenopausal screening without HRT Height: 60.7 IN Weight: 202 LBS FRAX RISK QUESTIONS: Alcohol (3 or more units per day): NO Family History (Parent hip fracture): NO Glucocorticoids (More than 3mos): NO (Ex: prednisone, prednisolone, methylprednisolone, dexamethasone, and hydrocortisone). History of Fracture in Adulthood: NO Secondary Osteoporosis: 1. Type 1 Diabetes: NO 2. Hyperthyroidism: NO 3. Menopause before 45: NO 4. Malnutrition: NO 5. Chronic liver disease: NO Rheumatoid Arthritis: NO Current Tobacco Use: NO RISK FACTORS HISTORY OF: Active: YES Postmenopausal woman: AGE 53 MEDICATIONS: Thyroid Medications: YES Which medication: Synthroid How Lon+ YEARS Additional Medications: D2,SYNTHROID, DIABETIC MEDS, HEART MEDS, CHOLESTEROL MEDS, BLOOD PRESSURE MED S, PLAVIX EXAM MEASUREMENTS: Bone mineral densitometry was performed using the [employer] System. Bone mineral density as measured about the Lumbar spine is: ----- L1-L4(G/cm2): 1.866 T Score Values are as follows: ----- L2: 5.0 ----- L3: 7.6 ----- L4: 6.9 ----- L1-L4: 5.7 Bone mineral density BASELINE Bone mineral density about the R hip (g/cm2): 1.263 Bone mineral density about the L hip (g/cm2): 1.101 T Score values are as follows: -----R Neck: 1.6 -----L Neck: 0.5 -----R Total: 2.7 -----L Total: 1.8 IMPRESSION: Normal (Values between +1 and -1 indicate normal bone mass). Consider repeating this study in 5 year s or sooner if there is some new clinical indication. NOTE: T-SCORE=SD OF THE YOUNG ADULT MEAN.
--- NOTE | 2017-04-07 12:23 | MM ---
Reason for exam: screening (asymptomatic). Last mammogram was performed 3 years and 1 month ago. History: Took hormonal contraceptives for 2 years beginning at age 24. Physical Findings: A clinical breast exam by your physician is recommended on an annual basis and results should be correlated with mammographic findings. MG Screening Mammo w CAD Bilateral CC and MLO view(s) were taken. Prior study comparison: February 20, 2014, bilateral MG screening mammo w CAD. February 10, 2005, CAD bilateral diagnostic mammogram. There are scattered fibroglandular densities. There is a 1.0cm group if increasing calcification in upper outer quadrant of right breast for which additional views will be performed. No suspicious abnormality. No significant changes when compared with prior studies. ASSESSMENT: Incomplete: need additional imaging evaluation, BI-RAD 0 RECOMMENDATION: Special view mammogram of the right breast. [facility] will attempt to contact patient to return for supplemental views.
== END | disposition home or self-care (01) ==
LOC: WWCWWP 08:48
PROVIDERS: ATTEND Obstetrics & Gynecology
DX: Z12.31 Encounter for screening mammogram for malignant neoplasm of breast (principal)
CPT/HCPCS: 77080; G0202

== ENCOUNTER → 2017-04-13 | Outpatient (CLI) | payer BC ==
--- NOTE | 2017-04-13 10:35 | MM ---
Reason for exam: additional evaluation requested from abnormal screening. Last mammogram was performed less than 1 month ago. History: Took hormonal contraceptives for 2 years beginning at age 24. Physical Findings: Nurse did not find any significant physical abnormalities on exam. MG Work Up Mamm w CAD RT LM, CC with magnification, and LM with magnification view(s) were taken of the right breast. Prior study comparison: April 06, 2017, bilateral MG screening mammo w CAD. February 20, 2014, bilateral MG screening mammo w CAD. Finding: There are intermediate concern, suspicious heterogeneous calcifications in the outer quadrant, posterior middle position of the right breast, persists on additional views. New finding since February 20, 2014. These results were verbally communicated with the patient and result sheet given to the patient on 04/13/17. ASSESSMENT: Suspicious, BI-RAD 4 RECOMMENDATION: Stereotactic core biopsy of the right breast. Called Dr. Gates with mammographic findings and has scheduled an appointment for the patient for 05/13/17 at 10:[address] Kerr. Biopsy scheduled for 04/27/17 at 2:20. PRELIMINARY REPORT CALLED AND FAXED TO DR. KERR ON 04/13/17.
== END | disposition home or self-care (01) ==
LOC: RADMAMWWP 08:28
PROVIDERS: ATTEND Obstetrics & Gynecology
DX: R92.8 Other abnormal and inconclusive findings on diagnostic imaging of breast (principal)

== ENCOUNTER → 2017-10-27 | Outpatient (CLI) | payer BC ==
--- NOTE | 2017-10-27 10:58 | MM ---
Reason for exam: follow-up at short interval from prior study. Last mammogram was performed 7 months ago. History: Patient is postmenopausal. Benign MG stereo VAD BX RT of the right breast, April 27, 2017. Took hormonal contraceptives for 2 years beginning at age 24. Physical Findings: Nurse did not find any significant physical abnormalities on exam. MG Diagnostic Mammo RT w CAD CC and MLO view(s) were taken of the right breast. Prior study comparison: April 13, 2017, right breast MG work up mamm w CAD RT. April 06, 2017, bilateral MG screening mammo w CAD. There are scattered fibroglandular densities. No significant new findings when compared with previous films. These results were verbally communicated with the patient and result sheet given to the patient on 10/27/17. ASSESSMENT: Benign, BI-RAD 2 RECOMMENDATION: Return to routine screening mammogram schedule for both breasts. Back on schedule.
== END | disposition home or self-care (01) ==
LOC: RADMAMWWP 08:44
PROVIDERS: ATTEND Surgery
DX: R92.8 Other abnormal and inconclusive findings on diagnostic imaging of breast (principal)
CPT/HCPCS: 77065

== ENCOUNTER 2020-02-10 03:13 | Emergency (ER) | payer BC ==
[2020-02-10 03:17] VITALS: RESP 18
[2020-02-10] MEDS ORDERED: TRANEXAMIC ACID 1,000 MG in SODIUM CHLORIDE 0.9% 100 ML IVPB ONE (04:13)
[2020-02-10] MEDS: AMOXIC-POT CLAV 875-125MG 1 EACH TAB PO STA (04:26)
[2020-02-10 04:36] LABS: Basophils # (A) 0.1 k/uL (0-0.2); Basophils % (A) 1 %; Eosinophils # (A) 0.2 k/uL (0-0.7); Eosinophils % (A) 2 %; HCT 41.6 % (34.0-46.0); HGB 13.8 gm/dL (11.4-16.0); Lymphocytes # (A) 1.5 k/uL (1.0-4.8); Lymphocytes % (A) 14 %; MCH 31.5 pg (25.0-35.0); MCV 95.3 fL (80.0-100.0); Mean Platelet Volume 8.1; Monocytes # (A) 0.7 k/uL (0-1.0); Monocytes % (A) 7 %; Neutrophils # (A) 7.6 k/uL (1.3-7.7); Neutrophils % (A) 74 %; Platelet Count 247 k/uL (150-450); RBC 4.37 m/uL (3.80-5.40); WBC 10.4 k/uL (3.8-10.6)
[2020-02-10 04:51] LABS: Partial Thromboplastin Time 23.2 sec (22.0-30.0); Prothrombin Time 10.1 sec (9.0-12.0)
--- NOTE | 2020-02-10 05:58 | ED ---
Animal Bite HPI - General Chief Complaint: Animal Bite Stated Complaint: DOG BITE Time Seen by Provider: 02/10/20 03:26 Source: patient, family Mode of arrival: ambulatory Limitations: no limitations - History of Present Illness Initial Comments: Patient is 64-year-old woman who states that her daughter's pit bull bit her left forearm tonight around 8 PM. The patient is concerned because she does have continued oozing of blood and she does take Plavix. She denies any sensory or motor loss. States that she did try using ice and elevation without much relief. He states that the pain is manageable. Last tetanus shot in 2016 Complaint: animal bite Onset/Timin -: hour(s) Left: Forearm Animal: dog Description: immunizations UTD Mechanism: bite Context: animals fighting Associated Symptoms: none - Related Data Home Medications Medication Instructions Recorded Confirmed Dulaglutide [Trulicity] 0.5 mg SQ TH 09/13/16 04/27/17 Insulin Glargine,Hum.rec.anlog 20 unit SQ HS 09/13/16 04/27/17 [Lantus Solostar] Levothyroxine Sodium [Synthroid] 50 mcg PO QAM 09/13/16 04/27/17 Aspirin 325 mg PO DAILY 12/04/16 04/27/17 Empagliflozin [Jardiance] 10 mg PO DAILY 03/23/17 04/27/17 Ergocalciferol (Vitamin D2) 50,000 units PO WEEKLY 03/23/17 04/27/17 [Vitamin D2] Previous Rx's Medication Instructions Recorded Atorvastatin [Lipitor] 40 mg PO DAILY #30 tab 12/13/16 Clopidogrel [Plavix] 75 mg PO DAILY #30 tab 12/13/16 Metoprolol Tartrate [Lopressor] 75 mg PO BID #90 tab 12/13/16 Pantoprazole [Protonix] 40 mg PO AC-BRKFST #30 tab 12/13/16 lisinopriL [Zestril] 10 mg PO DAILY@1200 #30 tab 12/13/16 Amoxicillin/Potassium Clav 1 tab PO BID 3 Days #14 tab 02/10/20 [Augmentin 875-125 Tablet] Allergies Allergy/AdvReac Type Severity Reaction Status Date / Time No Known Allergies Allergy Verified 02/10/20 03:17 Review of Systems ROS Statement: Those systems with pertinent positive or pertinent negative responses have been documented in the HPI. ROS Other: All systems not noted in ROS Statement are negative. Constitutional: Denies: fever, weakness Respiratory: Denies: cough, dyspnea Cardiovascular: Denies: chest pain, palpitations Skin: Reports: as per HPI Neurological: Denies: weakness, numbness, paresthesias Hematological/Lymphatic: Reports: easy bleeding (Taking Plavix) Past Medical History Past Medical History: Diabetes Mellitus, Hypertension, Thyroid Disorder Additional Past Medical History / Comment(s): diabetic retinopathy, glaucoma. History of Any Multi-Drug Resistant Organisms: None Reported Past Surgical History: Appendectomy, Bariatric Surgery, Coronary Bypass/CABG Additional Past Surgical History / Comment(s): Lapband,D&C, cataract surgery bilateral eyes,laser surgery bilateral eyes for bleeding. Past Anesthesia/Blood Transfusion Reactions: No Reported Reaction Additional Past Anesthesia/Blood Transfusion Reaction / Comment(s): no problems with prior blood transfusions. Past Psychological History: No Psychological Hx Reported Smoking Status: Never smoker Past Alcohol Use History: None Reported Past Drug Use History: None Reported - Past Family History Mother Family Medical History: Coronary Artery Disease (CAD) Father Family Medical History: Coronary Artery Disease (CAD) Additional Family Medical History / Comment(s): skin CA Brother(s) Family Medical History: Myocardial Infarction ([place]) Additional Family Medical History / Comment(s): brother of [place] General Exam Limitations: no limitations General appearance: alert, in no apparent distress Head exam: Present: atraumatic, normocephalic Respiratory exam: Present: normal lung sounds bilaterally. Absent: respiratory distress, wheezes, rales, rhonchi, stridor Cardiovascular Exam: Present: regular rate, normal rhythm, normal heart sounds. Absent: systolic murmur, diastolic murmur, rubs, gallop Left Elbow exam: Present: normal inspection, full ROM. Absent: tenderness, swelling Forearm Wrist exam: Present: full ROM, swelling, ecchymosis, other (Multiple puncture wounds.). Absent: tenderness, abrasion, deformity, crepitus, dislocation, erythema, tenderness over anatomical snuff box, pain with axial thumb loading Neurological exam: Present: alert. Absent: motor sensory deficit Skin exam: Present: warm, dry, other (Patient has multiple puncture wounds to the left forearm. No evident foreign body.). Absent: normal color Course Vital Signs 09/12/20 03:13 Temperature 98.3 F Pulse Rate 89 Respiratory 18 Rate Blood Pressure 222/104 O2 Sat by Pulse 98 Oximetry Medical Decision Making - Medical Decision Making Patient's 64-year-old woman with dog bite to left forearm. There is no evidence of neurovascular injury. Pulses are symmetric with the right side, strong and normal in strength. Capillary refill throughout. Extremities normal.Sensorimotor exam throughout the hand and forearm is normal. No evidence of foreign body to the puncture wounds. The patient's main concern is the continued bleeding, and there is continuous oozing of bright red blood. In light of this, patient is given TXA and I did hold direct pressure which did stop the bleeding. Patient started Augmentin here and will continue this at home. We discussed appropriate further care and follow-up as well as localized wound care and also the return parameters - Lab Data Result diagrams: 02/10/20 04:18 Lab Results 02/10/20 02/10/20 Range/Units 04:18 04:18 WBC 10.4 (3.8-10.6) k/uL RBC 4.37 (3.80-5.40) m/uL Hgb 13.8 (11.4-16.0) gm/dL Hct 41.6 (34.0-46.0) % MCV 95.3 (80.0-100.0) fL MCH 31.5 (25.0-35.0) pg MCHC 33.0 (31.0-37.0) g/dL RDW 13.0 (11.5-15.5) % Plt Count 247 (150-450) k/uL Neutrophils % 74 % Lymphocytes % 14 % Monocytes % 7 % Eosinophils % 2 % Basophils % 1 % Neutrophils # 7.6 (1.3-7.7) k/uL Lymphocytes # 1.5 (1.0-4.8) k/uL Monocytes # 0.7 (0-1.0) k/uL Eosinophils # 0.2 (0-0.7) k/uL Basophils # 0.1 (0-0.2) k/uL PT 10.1 (9.0-12.0) sec INR 1.0 (<1.2) APTT 23.2 (22.0-30.0) sec Disposition Clinical Impression: Dog bite Disposition: HOME SELF-CARE Condition: Good Instructions (If sedation given, give patient instructions): Animal Bite (ED) Prescriptions: Amoxicillin/Potassium Clav [Augmentin 875-125 Tablet] 1 tab PO BID 3 Days #14 tab Is patient prescribed a controlled substance at d/c from ED?: No Referrals: Genaro Montalvo MD [Primary Care Provider] - 1-2 days
[2020-02-10 06:29] VITALS: BP 149/81; PULSE 54; TEMP 98.7
== END 2020-02-10 06:29 | disposition home or self-care (01) ==
LOC: EC 03:13
DX: S51.852A Open bite of left forearm, initial encounter (principal); E11.319 Type 2 diabetes mellitus with unspecified diabetic retinopathy without macular edema; E07.9 Disorder of thyroid, unspecified; E11.39 Type 2 diabetes mellitus with other diabetic ophthalmic complication; H42 Glaucoma in diseases classified elsewhere; Z79.84 Long term (current) use of oral hypoglycemic drugs; Z79.4 Long term (current) use of insulin; Z79.890 Hormone replacement therapy; Z79.82 Long term (current) use of aspirin; W54.0XXA Bitten by dog, initial encounter; Y92.009 Unspecified place in unspecified non-institutional (private) residence as the place of occurrence of the external cause
CPT/HCPCS: 36415; 85025; 85610; 85730; 96365; 99283

== ENCOUNTER → 2021-08-12 | Day surgery (SDC) | payer BC, MEDICARE ==
[2021-08-07 14:54] VITALS: BMI 43.0
[~2021-08-12] MED LIST changes: -ALPRAZolam 0.25 MG TAB PO PRN; -ALPRAZolam 0.5 MG TAB PO PRN; -ASPIRIN 325 MG TAB PO STA; -ATORVASTATIN 80 MG TAB PO STA; +LACTATED RINGERS 1,000 ML IV SCH; +LIDOCAINE 1% (10MG/ML) FOR IV START INTRADERMA ONE; +LIDOCAINE 1% INJ 10MG/ML (20 ML MDV) ONE; -NITROGLYCERIN SL TABS 0.4 MG TAB SUBLINGUAL PRN; +PROPOFOL 10 MG/ML 20 ML VIAL IV ONE; -SODIUM CHLORIDE 0.9% 1,000 ML in EMPTY BAG 1 BAG IV ONE
[2021-08-12 08:05] VITALS: TEMP 97.4
[2021-08-12 08:29] LABS: Glucose,Whole Blood 82 mg/dL (75-99)
--- NOTE | 2021-08-12 08:43 | P.GSHP ---
History of Present Illness H&P Date: 08/12/21 Chief Complaint: Colon cancer screening 66-year-old female here today for colonoscopy. She has not had one previously. No bowel complaints. No family history of colon cancer. Patient known to our our service from prior lap band. Past Medical History Past Medical History: Diabetes Mellitus, Hypertension, Thyroid Disorder Additional Past Medical History / Comment(s): tested positive for Covid on 07-27-21-had severe diarrhea and vomiting initially then had cough. was treated with antiviral-feeling better now,diabetic retinopathy, glaucoma. History of Any Multi-Drug Resistant Organisms: None Reported Past Surgical History: Appendectomy, Bariatric Surgery, Coronary Bypass/CABG Additional Past Surgical History / Comment(s): Lapband,D&C, cataract surgery bilateral eyes,laser surgery bilateral eyes for bleeding,CABG 2016- vessel Past Anesthesia/Blood Transfusion Reactions: No Reported Reaction Additional Past Anesthesia/Blood Transfusion Reaction / Comment(s): no problems with prior blood transfusions. Smoking Status: Former smoker - Past Family History Mother Family Medical History: Coronary Artery Disease (CAD), Diabetes Mellitus Father Family Medical History: Cancer, Coronary Artery Disease (CAD) Additional Family Medical History / Comment(s): skin CA,blood CA Brother(s) Family Medical History: Myocardial Infarction (NE) Additional Family Medical History / Comment(s): brother of NE Medications and Allergies Home Medications Medication Instructions Recorded Confirmed Type Dulaglutide [Trulicity] 3 mg SQ TH 09/13/16 08/07/21 History Insulin Glargine,Hum.rec.anlog 25 unit SQ HS 09/13/16 08/07/21 History [Lantus Solostar Pen] Levothyroxine Sodium [Synthroid] 50 mcg PO QAM 09/13/16 08/07/21 History Aspirin 325 mg PO DAILY 12/04/16 08/07/21 History Atorvastatin [Lipitor] 40 mg PO DAILY #30 tab 12/13/16 08/07/21 Rx Clopidogrel [Plavix] 75 mg PO DAILY #30 tab 12/13/16 08/07/21 Rx Metoprolol Tartrate [Lopressor] 75 mg PO BID #90 tab 12/13/16 08/07/21 Rx Empagliflozin [Jardiance] 10 mg PO DAILY 03/23/17 08/07/21 History Ergocalciferol (Vitamin D2) 50,000 units PO WEEKLY 03/23/17 08/07/21 History [Vitamin D2] lisinopriL [Zestril] 5 mg PO QAM 08/07/21 08/07/21 History Allergies Allergy/AdvReac Type Severity Reaction Status Date / Time No Known Allergies Allergy Verified 08/12/21 07:54 Surgical - Exam Vital Signs Temp Pulse Resp BP Pulse Ox 97.4 F L 72 16 132/61 98 08/12/21 08:04 08/12/21 08:04 08/12/21 08:04 08/12/21 08:04 08/12/21 08:04 Physical exam: General: Well-developed, well-nourished HEENT: Normocephalic, sclerae nonicteric Abdomen: Nontender, nondistended Extremities: No edema Neuro: Alert and oriented Assessment and Plan (1) Colon cancer screening Narrative/Plan: Will proceed with colonoscopy at this time. Current Visit: Yes Status: Acute Code(s): Z12.11 - ENCOUNTER FOR SCREENING FOR MALIGNANT NEOPLASM OF COLON SNOMED Code(s): 403385541
--- NOTE | 2021-08-12 09:08 | P.PCN ---
Date of Procedure: 08/12/21 Procedure(s) Performed: PREOPERATIVE DIAGNOSIS: Colon cancer screening POSTOPERATIVE DIAGNOSIS: Diverticulosis, cecal polyp, descending colon polyp PROCEDURE: Colonoscopy with snare polypectomy ANESTHESIA: MAC SURGEON: Gary Kerr M.D. SPECIMENS: Polyp ENDOSCOPIC PROCEDURE: The patient was placed on the endoscopy table in the left decubitus position. The Olympus colonoscope was inserted into the anus and passed under direct visualization to the base of the cecum. The appendiceal orifice was visualized. From that point the scope was slowly withdrawn inspecting all surfaces carefully. Along the ileocecal valve itself was a small polyp that was removed using the snare with cautery technique. The remainder of the cecum and ascending and transverse colon appeared normal. In the descending a smaller polyp was seen and removed using the snare with cautery technique. No specimen was obtained from that location. The remainder of the descending sigmoid and rectum appeared normal with exception of sigmoid diverticulosis. Digital rectal examination was normal. The perianal skin was examined and demonstrated a mild erythematous rash that extended onto the perineum. The patient was taken to the recovery room in stable condition per anesthesia guidelines. RECOMMENDATIONS: Await biopsy results. If perineal irritation persists may require biopsy of the skin. Consider dermatology evaluation.
[2021-08-12 09:25] VITALS: RESP 15
[2021-08-12 09:31] VITALS: BP 128/62; PULSE 69
== END ==
LOC: ORWHC2ENDO 07:33
PROVIDERS: ATTEND Surgery
DX: Z12.11 Encounter for screening for malignant neoplasm of colon (principal); K57.90 Diverticulosis of intestine, part unspecified, without perforation or abscess without bleeding; D12.0 Benign neoplasm of cecum; D12.4 Benign neoplasm of descending colon; E11.9 Type 2 diabetes mellitus without complications; I10 Essential (primary) hypertension; E07.9 Disorder of thyroid, unspecified; Z95.1 Presence of aortocoronary bypass graft; Z87.891 Personal history of nicotine dependence; Z82.49 Family history of ischemic heart disease and other diseases of the circulatory system
CPT/HCPCS: 45385; 88305; J2001; J2704

== ENCOUNTER → 2024-05-18 | Outpatient (CLI) | payer MEDICARE ==
--- NOTE | 2024-05-18 14:33 | BD ---
EXAMINATION TYPE: Axial Bone Density DATE OF EXAM: 05/18/2024 CLINICAL HISTORY: 68 years old Female. ICD-10 CODE: M81.0 AGE RELATED OSTEO , Additional History: Height: 60.25 Weight: 203 FRAX RISK QUESTIONS: Family History (Parent hip fracture): no History of Fracture in Adulthood: no Secondary Osteoporosis: no RISK FACTORS HISTORY OF: Surgery to Spine/Hip(right/left)/Wrist (right/left): no MEDICATIONS: Thyroid Medications: yes Which medication: Synthroid How Lon+ years Osteoporosis Medications: no EXAM MEASUREMENTS: Bone mineral densitometry was performed using the O[employer] System. Bone mineral density as measured about the Lumbar spine is: ----- L1-L4(G/cm2): 1.873 T Score Values are as follows: ----- L1: 4.0 ----- L2: 5.7 ----- L3: 6.4 ----- L4: 6.5 ----- L1-L4: 5.8 Z Score Values are as follows: ----- L1: 4.7 ----- L2: 6.4 ----- L3: 7.1 ----- L4: 7.3 ----- L1-L4: 6.5 Bone mineral density has: Increased 0.4% since study of: 04/06/2017 Bone mineral density about the R hip (g/cm2): 1.252 Bone mineral density about the L hip (g/cm2): 1.138 T Score values are as follows: -----R Neck: 0.7 -----L Neck: 0.2 -----R Total: 1.9 -----L Total: 1.0 Z Score values are as follows: -----R Neck: 1.7 -----L Neck: 1.2 -----R Total: 2.6 -----L Total: 1.7 Bone mineral density has: Decreased -7.5% since study of: 04/06/2017 FRAX%s: The graph provided illustrates a 6.0% chance for a major osteoporotic fx and a 0.2% chance fo r the hips probability for fx in 10 years time. IMPRESSION: Normal (Values between +1 and -1 indicate normal bone mass). Consider repeating this study in 5 year s or sooner if there is some new clinical indication. NOTE: T-SCORE=SD OF THE YOUNG ADULT MEAN. [facility], , 05/18/2024 2:30 PM
--- NOTE | 2024-05-22 18:04 | MM ---
Reason for Exam: Screening (asymptomatic). Last mammogram was performed 7 year(s) and 1 month(s) ago. Patient History: Menarche at age 11. First Full-Term at age 22. Postmenopausal. Hormonal Contraceptives for 2 years from age 24 until age 26. 04/27/2017, Benign Core Biopsy on the right side. Risk Values: Sharron 5 year model risk: 2.0%. NCI Lifetime model risk: 6.7%. Prior Study Comparison: 04/06/2017 Bilateral Screening Mammogram, [facility]. 04/13/2017 Right Diagnostic Mammogram, [facility]. 10/27/2017 Right Diagnostic Mammogram, [facility]. Tissue Density: There are scattered areas of fibroglandular density. Findings: Analyzed By CAD. Since few secretory calcifications in the anterior aspect of the breasts have increased in the interval. Microclip upper outer quadrant right breast posterior depth from prior biopsy. Some adjacent punctate calcifications as slightly increased over previously biopsied. There is no suspicious group of microcalcifications or new suspicious mass in either breast. Overall Assessment: Benign, BI-RAD 2 Management: Screening Mammogram of both breasts in 1 year. Patient should continue monthly self-breast exams. A clinical breast exam by your physician is recommended on an annual basis. This exam should not preclude additional follow-up of suspicious palpable abnormalities. Note on Sharron scores and lifetime risk: 1. A Sharron score greater than 3% is considered moderate risk. If this is the case, consider specialist referral to assess eligibility for a risk reducing agent. 2. If overall lifetime risk for the development of breast cancer is 20% or higher, the patient may qualify for future screening with alternating mammogram and breast MRI. [facility], , 05/22/2024 6:01 PM. Electronically signed and approved by: Luca Seo M.D. Radiologist
== END | disposition home or self-care (01) ==
LOC: RADMAMWWP 07:56
PROVIDERS: ATTEND Internal Medicine Geriatric Medicine
DX: Z12.31 Encounter for screening mammogram for malignant neoplasm of breast (principal); M81.0 Age-related osteoporosis without current pathological fracture; Z78.0 Asymptomatic menopausal state; R92.323 Mammographic fibroglandular density, bilateral breasts
CPT/HCPCS: 77063; 77067; 77080